=== PATIENT | male | born 1955 | race Caucasian/White ===

== ENCOUNTER 2024-12-01 18:58 | Inpatient (IN) | payer MEDICARE, OTHER, SELFPAY ==
[2024-12-01] VITALS (23 sets, daily range): BP systolic 96–141; BP diastolic 56–73; BMI 25.3; BMI 26.5
[2024-12-01 16:40] LABS: Hematocrit 39.6 % (39.0-52.0); Hemoglobin 13.0 g/dL (13.0-18.0); Mean Corp Hgb Conc. 32.8 g/dL (33.0-37.0); Mean Corpuscular Volume 86.3 fL (80.0-94.0); Nucleated Red Blood Cells % 0 % (-); Platelet Count 196 10^3/uL (130-400); Red Cell Dist. Width 13.6 % (11.5-14.5)
[2024-12-01 17:04] LABS: Blood Urea Nitrogen 29 mg/dl (9-20); Calcium 7.9 mg/dl (8.4-10.2); Carbon Dioxide 23 mmol/L (22-30); Chloride 108 mmol/L (98-107); Glucose 96 mg/dl (70-99); Sodium 140 mmol/L (135-145); eGFR > 60.00
[2024-12-01 17:07] LABS: Troponin I 0.842 ng/ml
--- NOTE | 2024-12-01 17:44 | ED.GENMED ---
History of Present Illness
<Lizandro Olivares PA-C - Last Filed: 12/01/24 18:20>
General
Chief Complaint: Chest Pain
Source: patient and records
Time Seen by Provider: 12/01/24 17:25
History of Present Illness
History of Present Illness:
69-year-old male with past medical history of CVA, CAD, hypertension, hyperlipidemia, CKD status post renal transplant, aortic valve complications (scheduled to undergo TAVR at [facility] in the coming months) presenting to the ER
for evaluation of chest pain which started yesterday, resolved but then started again 4 hours ago which is what prompted him to come to the ER today. Pain is described to be a 4 out of 10, substernal to left side of his chest, nonradiating,
constant both sharp and dull at the same time, pain worsens with exertion. Patient notes associated fatigue and generalized weakness. Denies diaphoresis, nausea, vomiting, cough, pleurisy or hemoptysis, lower extremity edema. He reports that 3
months ago he had a cardiac catheterization as part of his workup for his TAVR and it was noted he had moderate CAD at that time. He states that that he developed a pseudoaneurysm from this and ultimately required admission at the [facility]
[place] for a few days, states he is not sure when his TAVR is supposed to take place. Patient did receive 324 mg of aspirin on the way to the hospital. He also reports that he takes Brilinta and he believes that he received this medication
at his [facility] earlier this morning.
Past History
<Lizandro Olivares PA-C - Last Filed: 12/01/24 18:20>
Past History
ED Past Medical History: CAD, CVA, GERD, HTN, Hypercholesterolemia, Renal failure, Valvular disease and Psychiatric
ED Past Surgical History: Cardiac, Tonsilectomy and Other
Social History
Tobacco: Non-smoker
Alcohol: None
Drug: None
Personal:
Living: with family
Review of Systems
<Lizandro Olivares PA-C - Last Filed: 12/01/24 18:20>
Review of Systems
All Other Systems: ROS reviewed and negative except as documented in HPI and ROS
Phy Exam
<Lizandro Olivares PA-C - Last Filed: 12/01/24 18:20>
Physical Exam
Physical Exam:
GENERAL: Alert , in no apparent distress
HEAD: Normocephalic atraumatic
EYE: Clear conjunctiva
NECK: Supple
ENT: o/p clr, mmm.
CARDIAC: Regular rate and rhythm, holosystolic murmur left sternal border.
LUNGS: Clear breath sounds bilaterally, no acute respiratory distress, no wheezes/rales/rhonchi
ABDOMEN: Soft, without focal tenderness, no r/g, no cvat
NEUROLOGICAL: Alert and oriented, no focal neuro deficits
SKIN: Warm and dry, skin intact.
MUSCULOSKELETAL: No edema, well perfused.
PSYCH: Normal and appropriate interaction.
Scores
<Lizandro Olivares PA-C - Last Filed: 12/01/24 18:20>
Heart Failure Risk
Heart Failure Risk Score: Not Applicable
Heart Score for Chest Pain Patients
STEMI patient?: No
History: Moderately Suspicious
ECG: Nonspecific Repolarization
Age: >/= 65 years
Risk Factors: >/= 3 Risk Factors or History of CAD
Troponin: >/= 3 x Normal Limit
Heart Score for Chest Pain Patients: 8
Heart Score Risk: 72.7 % MACE over next 6 weeks
Withdrawal Assessment of Alcohol
Withdrawal Assessment Completed?: Not applicable
Course
<Lizandro Olivares PA-C - Last Filed: 12/01/24 18:20>
Orders/Labs/Results
Orders:
Orders
12/01/24 16:18
Electrocardiogram (*1) Urgent
Reason for Study: Chest Pain
EKG- Treatment ONCE
12/01/24 16:30
Basic Metabolic Panel Urgent
Complete Blood Count/With Diff Urgent
Troponin I Urgent
12/01/24 17:32
Nitroglycerin Sublingual [Nitrostat (Sublingual)] 0.4 mg .ROUTE .STK-MED ONE
12/01/24 17:34
Nitroglycerin Sublingual [Nitrostat (Sublingual)] 0.4 mg SL [id number] PRN
12/01/24 17:35
CR Chest Portable - 1 View Urgent
Comment:
Reason For Exam: chest pain
Reason Study Needs to be Portable: Patient Unstable
12/01/24 17:38
PTT Urgent
Prothrombin Time Urgent
12/01/24 17:43
Heparin 4,000 units IV NOW STA
Nursing to Place Non Medication Order As Directed
Physician Order: PTT 6 hours after initial start of Heparin infusion
12/01/24 17:45
Heparin [id number] Units/250 ml 25,000 units in 250 ml IV PER PROTOCOL
Weight to be used for heparin protocol in kilograms (kg):: 80.1
Protocol:: Cardiac Tx/Acute Coronary
PTT Goal Range to be used:: PTT 73 to 111 seconds
Order type:: Initial
INITIAL Infusion Dose (UNITS/KG/hr) & then follow protocol:: 12 units/kg/hr
Infusion Dose in UNITS/hr & then follow protocol (UNITS/hr):: 950
INFUSION RATE in mL/hr & then follow protocol (mL/hr):: 9.5
PTT less than or equal to 64 seconds:: Increase rate by 200 units/hr (+ 2 mL/hr)
PTT 64.1 to 72.9 seconds:: Increase rate by 100 units/hr (+ 1 mL/hr)
PTT 73 to 111 seconds:: Target Range. No change in rate.
PTT 111.1 to 130.9 seconds:: Decrease rate by 100 units/hr (- 1 mL/hr)
PTT 131 to 199.9 seconds:: HOLD for 1 hr. Then decrease rate by 200 units/hr (- 2 mL/hr)
PTT greater than or equal to 200 seconds:: HOLD for 2 hrs & Notify Provider. Then decrease by 200 units/hr (-
2 mL/hr)
Lab follow-up:: Each change, PTT q6h until 2 consecutive are therapeutic. Then PTT
daily.
Abnormal Lab Results
12/01/24
16:30
RBC 4.59 L 10^6/uL
(4.70-6.10)
MCHC 32.8 L g/dL
(33.0-37.0)
Abs Immat Gran (auto) 0.1 H 10^3/uL
(0-0.05)
Absolute Monos (auto) 1.3 H 10^3/uL
(0.1-0.6)
Immature Gran % 0.6 H %
(0-0.5)
Monocytes % 15.2 H %
(1.7-9.3)
Chloride 108 H mmol/L
(98-107)
BUN 29 H mg/dl
(9-20)
Calcium 7.9 L mg/dl
(8.4-10.2)
Troponin I 0.842 H* ng/ml
12/01/24 16:30
12/01/24 16:30
Vital Signs
Initial and Last Documented VS:
Initial Vital Signs
Temp Pulse Resp BP Pulse Ox
98.3 F 73 18 117/64 97
12/01/24 16:06 12/01/24 16:06 12/01/24 16:06 12/01/24 16:06 12/01/24 16:06
Last Documented Vital Signs
Temp Pulse Resp BP Pulse Ox
98.3 F 79 22 123/69 100
12/01/24 16:06 12/01/24 17:30 12/01/24 17:30 12/01/24 18:00 12/01/24 17:44
<Santiago Marti, DO - Last Filed: 12/01/24 17:56>
Orders/Labs/Results
Orders:
Orders
12/01/24 16:18
Electrocardiogram (*1) Urgent
Reason for Study: Chest Pain
EKG- Treatment ONCE
12/01/24 16:30
Basic Metabolic Panel Urgent
Complete Blood Count/With Diff Urgent
Troponin I Urgent
12/01/24 17:32
Nitroglycerin Sublingual [Nitrostat (Sublingual)] 0.4 mg .ROUTE .STK-MED ONE
12/01/24 17:34
Nitroglycerin Sublingual [Nitrostat (Sublingual)] 0.4 mg SL [id number] PRN
12/01/24 17:35
CR Chest Portable - 1 View Urgent
Comment:
Reason For Exam: chest pain
Reason Study Needs to be Portable: Patient Unstable
12/01/24 17:38
PTT Urgent
Prothrombin Time Urgent
12/01/24 17:43
Heparin 4,000 units IV NOW STA
Nursing to Place Non Medication Order As Directed
Physician Order: PTT 6 hours after initial start of Heparin infusion
12/01/24 17:45
Heparin [id number] Units/250 ml 25,000 units in 250 ml IV PER PROTOCOL
Weight to be used for heparin protocol in kilograms (kg):: 80.1
Protocol:: Cardiac Tx/Acute Coronary
PTT Goal Range to be used:: PTT 73 to 111 seconds
Order type:: Initial
INITIAL Infusion Dose (UNITS/KG/hr) & then follow protocol:: 12 units/kg/hr
Infusion Dose in UNITS/hr & then follow protocol (UNITS/hr):: 950
INFUSION RATE in mL/hr & then follow protocol (mL/hr):: 9.5
PTT less than or equal to 64 seconds:: Increase rate by 200 units/hr (+ 2 mL/hr)
PTT 64.1 to 72.9 seconds:: Increase rate by 100 units/hr (+ 1 mL/hr)
PTT 73 to 111 seconds:: Target Range. No change in rate.
PTT 111.1 to 130.9 seconds:: Decrease rate by 100 units/hr (- 1 mL/hr)
PTT 131 to 199.9 seconds:: HOLD for 1 hr. Then decrease rate by 200 units/hr (- 2 mL/hr)
PTT greater than or equal to 200 seconds:: HOLD for 2 hrs & Notify Provider. Then decrease by 200 units/hr (-
2 mL/hr)
Lab follow-up:: Each change, PTT q6h until 2 consecutive are therapeutic. Then PTT
daily.
Abnormal Lab Results
12/01/24
16:30
RBC 4.59 L 10^6/uL
(4.70-6.10)
MCHC 32.8 L g/dL
(33.0-37.0)
Abs Immat Gran (auto) 0.1 H 10^3/uL
(0-0.05)
Absolute Monos (auto) 1.3 H 10^3/uL
(0.1-0.6)
Immature Gran % 0.6 H %
(0-0.5)
Monocytes % 15.2 H %
(1.7-9.3)
Chloride 108 H mmol/L
(98-107)
BUN 29 H mg/dl
(9-20)
Calcium 7.9 L mg/dl
(8.4-10.2)
Troponin I 0.842 H* ng/ml
12/01/24 16:30
12/01/24 16:30
Vital Signs
Initial and Last Documented VS:
Initial Vital Signs
Temp Pulse Resp BP Pulse Ox
98.3 F 73 18 117/64 97
12/01/24 16:06 12/01/24 16:06 12/01/24 16:06 12/01/24 16:06 12/01/24 16:06
Last Documented Vital Signs
Temp Pulse Resp BP Pulse Ox
98.3 F 79 22 123/69 100
12/01/24 16:06 12/01/24 17:30 12/01/24 17:30 12/01/24 18:00 12/01/24 17:44
<Lizandro Olivares PA-C - Last Filed: 12/01/24 18:20>
MDM/Problems Addressed
Differential Diagnosis Includes:
NSTEMI/ACS
PE
PTX
CHF
Worsening valvular dysfunction
CKD
MDM/Problems Addressed:
69-year-old male presented to the ER for evaluation of chest pain that started 4 hours ago, currently 4 out of 10. Labs have been initiated on arrival which showed a troponin of 0.842, EKG without any acute ischemic changes. Patient
hemodynamically stable. Will order nitroglycerin for pain. Anticipate needing heparin for NSTEMI. Will consult with cardiology with ultimate plan for admission to hospitalist team. Will attempt to retrieve records from [facility]
[place] for recent procedures.
Chronic conditions affecting care: CAD
Acute Exacerbation and/or Progression of Chronic Illness: CAD
<Lizandro Olivares PA-C - Last Filed: 12/01/24 18:20>
*Pulse Oximetry
SaO2: 100
Oxygen Mode of Delivery: Room air
Patient hypoxic: no
*EKG
Heart Rate: 75
Rate: normal
Ischemia: no ischemia
*Chip Drier Interpretation
Rate: normal
Heart Rate: 78
Rhythm: sinus
*Critical Care Note
Total Time (30-74mins, 75-104mins- exclusive of procedures): 40
comment:
Critical care statement: A total of 40 minutes of critical care time was provided for this patient. This includes management of unstable vital signs, evaluation of the patient at bedside, reviewing the patient's pertinent medical records, discussion
with consultants, review of old EKGs and review of pertinent medical records. This time with separate from time utilized to perform the aforementioned documented procedures
Data Reviewed
Review of Other/Old Records Reveals: Records and Operative Reports
Source: patient and records
<Lizandro Olivares PA-C - Last Filed: 12/01/24 18:20>
Comment
Comment:
Cardiac cath report from August 08 of this year shows diffuse calcific CAD with intermediate proximal stenosis of OM1. There is moderate to severe aortic valve stenosis. Patient has previous stenting of OM1
Echocardiogram done August 20 shows ejection fraction of 60 to 65%. There is moderate to severe valvular aortic stenosis which is new from previous echocardiogram
Patient Management
Discussion with other providers: Hospitalist and Personnel Representative
Escalation/DeEscalation of care consider admission/obs:
Case discussed with cardiology who agrees with plan for heparin, can give nitro drip if pain remains following the initial sublingual nitroglycerin. They will see the patient in consult. Hospitalist team was notified and accepts for continued
evaluation and treatment.
ED Attending Note
<Lizandro Olivares PA-C - Last Filed: 12/01/24 18:20>
-
Portions of this chart may have been created with voice recognition software.� Occasional wrong word or��sound alike� substitutions may have occurred due to the inherent limitations of voice recognition software.
<Santiago Marti DO - Last Filed: 12/01/24 17:56>
ED Attending Note
Patient seen and examined by attending physician: Yes
I performed the substantive portion of visit, reviewed & personally made and approve the management plan that is documented in note by myself or CYNTHIA.: Yes
ED Attending Note:
Seen with PA examined independently 69-year-old male followed at [facility] by Dr. Rojas for TAVR underwent a cath a few months ago, had an injury to his right femoral artery, did have a stent placed sounds like in his coronary, presents with chest pain,
elevated troponin EKG noted chest pain-free now plan will be admission, cardiology consultation
Discharge Plan
Departure
Patient Disposition: Admit
Date of Disposition: 12/01/24
Time of Disposition: 17:44
Presentation/result/management discussed w/ accepting MD/DO: Hospitalist
Discharge Problem:
Acute non-ST elevation myocardial infarction (NSTEMI)
Prescriptions:
No Action
acetaminophen [Tylenol] 325 mg Tablet
650 mg PO Q4HPRN PRN (Reason: MILD PAIN)
lamotrigine 200 mg Tablet
400 mg PO HS
atorvastatin [Lipitor] 10 mg Tablet
10 mg PO HS
clonazepam [Klonopin] 0.5 mg Tablet
0.5 mg PO HS
melatonin 3 mg Tablet
3 mg PO HS
aspirin 81 mg Tablet,Delayed Release (Dr/Ec)
81 mg PO DAILY
famotidine [Pepcid] 20 mg Tablet
20 mg PO DAILY
fludrocortisone 0.1 mg Tablet
0.1 mg PO DAILY
tacrolimus [Prograf] 0.5 mg Capsule
1.5 mg PO Q12H
mycophenolate sodium [Myfortic] 180 mg Tablet,Delayed Release (Dr/Ec)
540 mg PO BID
cinacalcet 90 mg Tablet
90 mg PO BID
pregabalin [Lyrica] 50 mg Capsule
50 mg PO QPM
cholecalciferol (vitamin D3) [Vitamin D3] 50 mcg (2,000 unit) Tablet
50 mcg PO DAILY
ticagrelor [Brilinta] 90 mg Tablet
90 mg PO BID
lurasidone [Latuda] 60 mg Tablet
60 mg PO DAILY
magnesium oxide 400 mg magnesium Tablet
400 mg PO BID
Referrals:
Francisco Kearns MD [Family Provider, Internal Medicine]
Interventions
Interventions:
*Risk Screen - Suicide Last Done: 12/01/24 16:06
*General Assessment Last Done: 12/01/24 17:31
*Neglect/Abuse Screening Last Done: 12/01/24 16:06
*ED- Fall Risk Assessment Last Done: 12/01/24 17:31
*ED COVID-19 Vaccine History Last Done: 12/01/24 17:31
ED- Cardiac Assessment Last Done: 12/01/24 17:28
Discharge Date and Time
Print Language: AZERI
--- NOTE | 2024-12-01 17:46 | HPS.HSE ---
Addendum entered and electronically signed by Candy [facility] MD 12/01/24 20:30:
This is an addendum to H&P written by Mildred Luna on 12/01/2024. �Patient seen and examined independent with PA.
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
peripheral neuropathy, presenting with chest discomfort that occurred last week and today. �Described as pressure sharp stabbing with breathing.
Vital signs show unremarkable.
EKG shows nonspecific ST changes. �Troponin 0.84.
Patient with NSTEMI. �Trend troponins. �Check echocardiogram. �Check A1c and lipid panel. �As needed nitroglycerin. �Continue aspirin and Brilinta. �Heparin drip started. �N.p.o. postmidnight for potential catheterization tomorrow as per cardiology.
Original Note:
Family Physician
-
Family Physician: Francisco Kaerns
Chief Complaint
-
Chest Pain
History of Present Illness
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
chest pain. Patient reports he had a little bit of chest pain last week but states it was mild and resolved. Today the chest pain returned and was more much intense than last week. He describes a pressure in the middle of the chest, but then
describes a sharp pain along the right ribs when takes a deep breath. He denies shortness of breath.
Medical History
Past Medical History
Past Medical History: Reports Other
Additional Past Medical History:
Coronary Artery Disease s/p Stent x 2
Moderate / Severe Aortic Stenosis
Essential Hypertension
Hyperlipidemia
Renal Transplant
Hyperparathyroidism
Anxiety / Bipolar Disorder
Essential Tremor
Peripheral Neuropathy
Past Surgical History: Reports Other
Additional Past Surgical History:
Kidney Transplant
Cardiac Stent
Social History
Tobacco: Non-smoker
Alcohol: None
Living: Care Home
Family History
Family History: Not pertinent
Allergies / Home Medications
Allergies reflects when Allergies were last updated in [facility].
Home Medications with original date entered in [facility]
Allergy/Medication List:
Allergies
Allergy/AdvReac Type Severity Reaction Status Date / Time
No Known Allergies Allergy Unverified 12/01/24 17:45
Home Medications
acetaminophen 325 mg tablet (Tylenol) 650 mg PO Q4HPRN PRN MILD PAIN 12/01/24
aspirin 81 mg tablet,delayed release 81 mg PO DAILY 12/01/24
atorvastatin 10 mg tablet (Lipitor) 10 mg PO HS 12/01/24
cholecalciferol (vitamin D3) 50 mcg (2,000 unit) tablet (Vitamin D3) 50 mcg PO DAILY 12/01/24
cinacalcet 90 mg tablet 90 mg PO BID 12/01/24
clonazepam 0.5 mg tablet (Klonopin) 0.5 mg PO HS 12/01/24
famotidine 20 mg tablet (Pepcid) 20 mg PO DAILY 12/01/24
fludrocortisone 0.1 mg tablet 0.1 mg PO DAILY 12/01/24
lamotrigine 200 mg tablet 400 mg PO HS 12/01/24
lurasidone 60 mg tablet (Latuda) 60 mg PO DAILY 12/01/24
magnesium oxide 400 mg PO BID 12/01/24
melatonin 3 mg tablet 3 mg PO HS 12/01/24
mycophenolate sodium 180 mg tablet,delayed release (Myfortic) 540 mg PO BID 12/01/24
pregabalin 50 mg capsule (Lyrica) 50 mg PO QPM 12/01/24
tacrolimus 0.5 mg capsule, immediate-release (Prograf) 1.5 mg PO Q12H 12/01/24
ticagrelor 90 mg tablet (Brilinta) 90 mg PO BID 12/01/24
Review of Systems
-
A 12 point ROS was completed and negative except as noted: Yes
Constitutional: Denies Fever
Respiratory: Denies Cough or Trouble Breathing
Cardiac: Reports See HPI
Physical Exam
Vital Signs
Vital Signs
Temp Pulse Resp BP Pulse Ox
98.3 F 79 22 141/73 100
12/01/24 16:06 12/01/24 17:30 12/01/24 17:30 12/01/24 17:29 12/01/24 17:44
Physical Exam
General: Comfortable and Conversant
HEENT: Anicteric and Moist mucous membranes
Respiratory: Clear and Non Labored Respirations
Cardiac: S1/S2 and Regular Rhythm
GI: Soft and Non Tender
Rectal: Deferred by Provider
Musculoskeletal: No Clubbing, No Cyanosis and No Edema
Skin: Warm and Dry
Neuro: Awake, Alert, Oriented, Nonfocal/grossly intact and Tremors
Psych: Calm
Laboratory Results
-
12/01/24 16:30
12/01/24 16:30
Laboratory Results
Total Bilirubin Cancelled 12/01/24 16:30
AST Cancelled 12/01/24 16:30
ALT Cancelled 12/01/24 16:30
Alkaline Phosphatase Cancelled 12/01/24 16:30
Troponin I 0.842 ng/ml H* 12/01/24 16:30
Data Reviewed
-
Medical Tests (Nuc Med, Echo, EKG etc): Report Reviewed by me (ECG)
Lab Data: Labs Reviewed by me
Impression/Plan
-
NSTEMI
-Patient with known coronary artery disease with most recent stent in August 2024
-Consult Cardiology
-Continue heparin drip
-Continue aspirin and Brilinta
-Continue nitro SL PRN
-Trend troponin
-NPO after midnight for possible cardiac cath in AM
Moderate / Severe Aortic Stenosis
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
-Check Echo
Hyperlipidemia
-Check Fasting Lipid Panel
-Continue atorvastatin
Renal Transplant
-Continue fludrocortisone, mycophenolate and tacrolimus
Hyperparathyroidism
-Continue cinacalcet
Anxiety / Bipolar Disorder
-Continue clonazepam, lurasidone, and lamotrigine
Peripheral Neuropathy
-Continue pregabalin
DVT proph: Heparin drip
Code Status: Full Code
[2024-12-01] MEDS: NITROSTAT (SUBLINGUAL) 0.4 MG SL ×4 (17:55→22:40)
[2024-12-01 18:02] LABS: INR 1.12; PT 14.7 Sec (11.4-14.6)
[2024-12-01 18:03] LABS: APTT 32.6 Sec (23.4-35.0)
[2024-12-01] MEDS: HEPARIN 25000 UNITS/250 ML IV (18:14)
[2024-12-01] MEDS: HEPARIN 4000 UNITS IV (18:15)
[2024-12-01 19:12] LABS: ALT (SGPT) 19 U/L (0-50); AST (SGOT) 24 U/L (17-59); Albumin 3.9 g/dl (3.5-5.0); Alkaline Phosphatase 112 U/L (38-126); Potassium 4.3 mmol/L (3.5-5.1); Total Protein 5.8 g/dl (6.3-8.2)
[2024-12-01] MEDS: KLONOPIN 0.5 MG PO (21:49)
[2024-12-01] MEDS: TYLENOL 650 MG PO (21:49)
[2024-12-01] MEDS: LIPITOR 10 MG PO (21:49)
[2024-12-01] MEDS: MELATONIN 3 MG PO (21:50)
[2024-12-01] MEDS: BRILINTA 90 MG PO (21:50)
[2024-12-01] MEDS: MAGNESIUM OXIDE 400 MG PO (21:50)
[2024-12-01] MEDS: NITROLINGUAL SPRAY 1 BOTTLE SL (22:05)
[2024-12-01] MEDS: LAMICTAL 400 MG PO (22:07)
[2024-12-01] MEDS: MYFORTIC DELAYED REL. 540 MG PO (22:08)
[2024-12-01] MEDS: SENSIPAR 90 MG PO (22:09)
[2024-12-01] MEDS: PROGRAF 1.5 MG PO (22:09)
[2024-12-02] VITALS (23 sets, daily range): BP systolic 89–129; BP diastolic 45–85; BMI 26.3
[2024-12-02 00:25] LABS: APTT 100.3 Sec (23.4-35.0)
[2024-12-02 00:53] LABS: Troponin I 0.791 ng/ml
--- NOTE | 2024-12-02 01:46 | PTCARENOTE ---
Pt admitted to room 2248 with chest pain. Pt c/o CP 4/10 SL Nitro x2 given with pain down to 04/18. Pt requested lunch box while complaining 'severe' CP 4/10 and wanted to take nitro only after he eats. Heparin gtt per order. Pt oriented to room,
call correia w/in reach. pt was able to ambulate with minimal assistance.
[2024-12-02 05:43] LABS: Hematocrit 35.1 % (39.0-52.0); Hemoglobin 11.6 g/dL (13.0-18.0); Mean Corp Hgb Conc. 33.0 g/dL (33.0-37.0); Mean Corpuscular Volume 86.0 fL (80.0-94.0); Platelet Count 165 10^3/uL (130-400); Red Cell Dist. Width 13.6 % (11.5-14.5)
[2024-12-02 05:56] LABS: ALT (SGPT) 19 U/L (0-50); AST (SGOT) 24 U/L (17-59); Albumin 3.9 g/dl (3.5-5.0); Alkaline Phosphatase 102 U/L (38-126); Blood Urea Nitrogen 31 mg/dl (9-20); Calcium 8.3 mg/dl (8.4-10.2); Carbon Dioxide 22 mmol/L (22-30); Chloride 112 mmol/L (98-107); Estimated Creatinine Clearance 59 ml/min; Glucose 97 mg/dl (70-99); HDL Cholesterol 43 mg/dl; LDL Cholesterol, Calculated 56 mg/dl; Magnesium 1.5 mg/dl (1.6-2.3); Potassium 4.3 mmol/L (3.5-5.1); Sodium 141 mmol/L (135-145); Total Protein 5.8 g/dl (6.3-8.2); Very Low Density Lipoprotein 11 mg/dl (0-30); eGFR > 60.00
[2024-12-02 06:18] LABS: Troponin I 0.703 ng/ml
[2024-12-02 06:24] LABS: APTT 92.7 Sec (23.4-35.0)
[2024-12-02] MEDS: MAGNESIUM SULFATE 102 GRAMS IV (06:25)
--- NOTE | 2024-12-02 07:38 | CON.CAR ---
Addendum entered and electronically signed by Selvin King MD 12/02/24 10:05:
I saw and examined the patient.
The Food Processing Chemist's note was reviewed and I agree with the note.
Comment:
GEN: No distress, awake, Ox3
HEENT: supple, anicteric, mmm
LUNGS: CTA, no wheezes/rales
CV: Reg, S1/S2, 3/6 syst LSB, no gallop
ABD: soft, BS+, NT/ND
EXT: No edema
NEURO: Gross non-focal
SKIN: No rash
PLan:
69-year-old male with past medical history of coronary artery disease, severe aortic stenosis, hypertension, bipolar disorder, and renal transplant presents with chest tightness and chest pressure for several days. He has been having a few days of
chest pains when yesterday he had severe chest pain in the center of his chest. It did not radiate but he did feel some shortness of breath. He has noticed some intermittent episodes of weakness. He is being evaluated for transcatheter aortic
valve replacement. He had a PCI to his OM in August 2024. After his PCI he overall felt well. He denies any orthopnea, PND, or edema. He has no bleeding. He states his kidney transplant has been stable. He did have 10 years of hemodialysis prior
to his transplant
Continue IV heparin. If has further chest pains we will start nitroglycerin. Continue aspirin and Brilinta. Continue atorvastatin and check lipids.
Will check echocardiogram. Will review records from prior cardiology at [place]. Previous mean aortic gradient from 1 year ago was 39. He has appt with [facility] Dr Rojas in for TAVR eval.
His blood pressure is stable but has been on the low side. Continue Florinef for now. Will hold off on beta-blockers for now. If stable s/p Cath will add low dose Metoprolol.
With non-STEMI will proceed with cardiac cath today. Creat 1.2.
Cont Tacrolinus/Mycophenolate. Consult nephrology
Original Note:
Consultation
Consultation Request
Date/Time Consultation Requested: 12/01/2024 at 2108
Date/Time Consultation Performed: 12/02/2024 at 0816
Requesting Provider: Dr. Polanco
Performing Provider: Dr. NORMA Delacruz
Reason for Consultation: Chest pain elevated troponin
Medical History
-
History of Present Illness:
Patient came to the ER yesterday with chest pain and was admitted with elevated troponin, cardiology is now consulted. Patient used to follow with [facility] cardiology and had a cath 08/08/24 resulting in OM1 stent, but there was residual nonobstructive
RCA and LAD disease. Patient then had a pseudoaneurysm with 5-day hospitalization. Patient decided to transition his cardiology care to Dr. Rojas at [place] and is following with their office for TAVR evaluation, but is not currently scheduled for
TAVR. Patient lives in the long-term care section at [facility], but reports he has his own room although they handle all of his medications and meals. Patient has lived there for 3 years and says this is his long-term living
situation. Patient reports 2 hours of chest pain starting at 10 AM yesterday that persisted until he came to the ER and had 3 different NTG SL treatments. He has been pain-free since then. Patient started on heparin gtt after his initial troponin
returned elevated at 0.8, troponin trending down thereafter. Patient is a difficult historian and did not tell me that he called his immigration services officer at [facility] yesterday and is scheduled to see them next . He also mentioned in passing that he
had an episode of weakness and shortness of breath 2 days ago because 'these are my to have our symptoms you only need to know about my heart attack symptoms.'
PMH:
CAD
Remote PCI details and exact date unknown 2009
s/p PCI of OM-1 at [facility] 08/08/24
Severe being evaluated for TAVR are at [facility]
Patient is not currently scheduled for TAVR
s/p kidney transplant
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
Bipolar disorder
Past Medical History
Past Medical History: Other (In HPI)
Past Surgical History: Cardiac (PCI as recently as 08/08/2024 at [facility]), Tonsilectomy and Other (Kidney transplant)
Social History
Tobacco: Non-Smoker
Alcohol: None
Drug: None
Personal: Single
Living: Halfway (Patient is a long-term resident in the long-term care section at [facility], he reports he has his own room but they handle all meds and meals)
Family History
Family History: Reviewed & Not Pertinent
Allergies / Home Medications
Allergy/AdvReac Type Severity Reaction Status Date / Time
No Known Allergies Allergy Unverified 12/01/24 17:45
�Medication �Instructions �Recorded �Confirmed �Type
acetaminophen 325 mg tablet 650 mg PO Q4HPRN PRN MILD PAIN 12/01/24 12/01/24 History
(Tylenol)
aspirin 81 mg tablet,delayed 81 mg PO DAILY 12/01/24 12/01/24 History
release
atorvastatin 10 mg tablet (Lipitor) 10 mg PO HS 12/01/24 12/01/24 History
cholecalciferol (vitamin D3) 50 50 mcg PO DAILY 12/01/24 12/01/24 History
mcg (2,000 unit) tablet (Vitamin
D3)
cinacalcet 90 mg tablet 90 mg PO BID 12/01/24 12/01/24 History
clonazepam 0.5 mg tablet (Klonopin) 0.5 mg PO HS 12/01/24 12/01/24 History
famotidine 20 mg tablet (Pepcid) 20 mg PO DAILY 12/01/24 12/01/24 History
fludrocortisone 0.1 mg tablet 0.1 mg PO DAILY 12/01/24 12/01/24 History
lamotrigine 200 mg tablet 400 mg PO HS 12/01/24 12/01/24 History
lurasidone 60 mg tablet (Latuda) 60 mg PO DAILY 12/01/24 12/01/24 History
magnesium oxide 400 mg PO BID 12/01/24 12/01/24 History
melatonin 3 mg tablet 3 mg PO HS 12/01/24 12/01/24 History
mycophenolate sodium 180 mg 540 mg PO BID 12/01/24 12/01/24 History
tablet,delayed release (Myfortic)
pregabalin 50 mg capsule (Lyrica) 50 mg PO QPM 12/01/24 12/01/24 History
tacrolimus 0.5 mg capsule, 1.5 mg PO Q12H 12/01/24 12/01/24 History
immediate-release (Prograf)
ticagrelor 90 mg tablet (Brilinta) 90 mg PO BID 12/01/24 12/01/24 History
Review of Systems
-
History Source: Patient
All other systems: Negative unless noted
Physical Exam
Vital Signs
Temp Pulse Resp BP Pulse Ox
97.8 F 68 16 121/63 99
12/02/24 07:05 12/02/24 07:05 12/02/24 07:05 12/02/24 05:10 12/02/24 07:05
GEN: NAD, AAO x 3
HEENT: EOMI, MMM
LUNGS: RA CTA B/L, no wheeze
CV: SR on telemetry. Reg, S1/S2, 2/6 syst LSB
ABD: soft, BS+, NT, ND
EXT: No edema B/L LE
NEURO: Tremulous. No focal or lateralizing weakness
SKIN: No rash
Lab Results
12/02/24 05:22
12/02/24 05:22
Troponin I 0.703 ng/ml H* 12/02/24 05:22
Impression / Plan
-
PCP: Dr. Francisco Kearns
Cardiology: Previously followed with Dr. Bill Petit at [facility] [phone], now follows with Dr. Salvador Rojas at [facility] [phone]
Impression:
Admitted with chest pain and elevated troponin 12/01/2024
Elevated troponin
CAD
Remote PCI details and exact date unknown 2009
s/p PCI of OM-1 at [facility] 08/08/24
Severe being evaluated for TAVR are at [facility]
Patient is not currently scheduled for TAVR
s/p kidney transplant
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
Bipolar disorder
Echo 07/10/2023: [facility] study, EF 60 to 65%, normal RV size and function, no MR/MS, moderate to severe with peak/mean 67/39 mmHg and DESHAWN 0.8 cm sq
C 08/08/2024: [facility] study, diffuse calcific CAD with FFR positive stenosis in the proximal OM, s/p TUNG to OM-1, severely calcified up to 60% stenosis in the RCA luminal irregularities in the LM, calcified proximal and distal up to 40% plaque in the LAD
Plan:
-Patient came to the ER yesterday with chest pain and was admitted with elevated troponin, cardiology is now consulted. Patient used to follow with [facility] cardiology and had a cath 08/08/24 resulting in OM1 stent, but there was residual nonobstructive
RCA and LAD disease. Patient then had a pseudoaneurysm with 5-day hospitalization. Patient decided to transition his cardiology care to Dr. Rojas at [facility] and is following with their office for TAVR evaluation, but is not currently scheduled for
TAVR. Patient lives in the long-term care section at [facility], but reports he has his own room although they handle all of his medications and meals. Patient has lived there for 3 years and says this is his long-term living
situation. Patient reports 2 hours of chest pain starting at 10 AM yesterday that persisted until he came to the ER and had 3 different NTG SL treatments. He has been pain-free since then. Patient started on heparin gtt after his initial troponin
returned elevated at 0.8, troponin trending down thereafter. Patient is a difficult historian and did not tell me that he called his immigration services officer at [facility] yesterday and is scheduled to see them next Thursday. He also mentioned in passing that he
had an episode of weakness and shortness of breath 2 days ago because 'these are my to have our symptoms you only need to know about my heart attack symptoms.'
-ECG reviewed by me is SR without acute ST change
-Initial troponin 0.8 and trending down thereafter
-I called and got records from [facility] cardiology and await their arrival. I am looking for his last cardiac cath report to get all the details
-I called Dr. Rojas at [facility] and talked to someone at his office and they did send me records which are summarized and outlined above. Patient is not currently scheduled for TAVR, but is scheduled to be seen in their office next , 12/11/2024.
-I was able to get some details of his cardiac cath from 08/08/24, he had a residual 60% RCA lesion and up to 40% lesion in the LAD. Patient now with chest pain and elevated troponin and so we discussed possibly repeating cardiac cath to reevaluate
coronary anatomy and he is agreeable to this. We talked about the risks versus the benefits especially in regards to his previous kidney transplant and he is agreeable to proceed.
-Patient was seen earlier this morning prior to the completion of this note and then while working on this no I was called back to see patient for recurrent chest pain that did not respond to NTG SL x 1. I am starting NTG gtt in addition to heparin
gtt. Urgent ECG reviewed by me is stable without acute ST changes. I have ordered another troponin. I reached out to interventional cardiology to expedite cardiac cath. I also reached out to echo to expedite echo. Back into see patient as well.
31 minutes critical care time in addition to this consult
-Kidney transplant was due to ESRD from lithium toxicity. Cre is 1.2 today, patient is not sure of his baseline. Will consult nephrology as patient is agreeable to cardiac cath.
[2024-12-02 08:41] LABS: Glycohemoglobin (HgbA1c) 5.3 % (4.0-5.6)
[2024-12-02] MEDS: ASPIR LOW (ENTERIC COATED) 81 MG PO (08:45)
[2024-12-02] MEDS: BRILINTA 90 MG PO ×2 (08:45→19:54)
[2024-12-02] MEDS: FLORINEF 0.1 MG PO (08:46)
[2024-12-02] MEDS: LATUDA 60 MG PO (08:46)
[2024-12-02] MEDS: MAGNESIUM OXIDE 400 MG PO ×2 (08:47→19:54)
[2024-12-02] MEDS: MYFORTIC DELAYED REL. 540 MG PO ×2 (08:47→19:54)
[2024-12-02] MEDS: SENSIPAR 90 MG PO ×2 (08:48→19:54)
[2024-12-02] MEDS: PEPCID 20 MG PO (08:48)
[2024-12-02] MEDS: VITAMIN D3 (cholecalciferol) 50 MCG PO (08:49)
[2024-12-02] MEDS: NITROSTAT (SUBLINGUAL) 0.4 MG SL (09:22)
--- NOTE | 2024-12-02 09:23 | W.PN.HOSP.TC ---
Today's Communication/Plan
-
For cardiac catheterization today
Assessment / Plan
Assessment / Plan
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
peripheral neuropathy, presenting with chest discomfort that occurred last week and today. �Described as pressure sharp stabbing with breathing. EKG shows nonspecific ST changes. �Troponin 0.84.
Patient with NSTEMI. �Trend troponins. �Check echocardiogram. �Check A1c and lipid panel. �As needed nitroglycerin. �Continue aspirin and Brilinta. �Heparin drip started. �N.p.o. postmidnight for potential catheterization tomorrow as per cardiology.
Assessment/plan:
NSTEMI
-Appreciate cardiology input, plan for cardiac catheterization today
-Continue heparin drip, aspirin, Brilinta, nitro SL PRN
Renal Transplant
-Continue fludrocortisone, mycophenolate and tacrolimus
-Nephrology consulted as patient will receive contrast for his cardiac catheterization
Moderate / Severe Aortic Stenosis
-Patient reports his Evp General Counsel as Luis Angel is watching his valve with plans to undergo TAVR evaluation in the future
-Echocardiogram requested
Hyperlipidemia
-LDL at goal at 56
-Continue atorvastatin
Hyperparathyroidism
-Continue cinacalcet
Anxiety / Bipolar Disorder
-Continue clonazepam, lurasidone, and lamotrigine
Peripheral Neuropathy
-Continue pregabalin
Lactose intolerance
-He will need a low lactose diet after his cardiac catheterization
DVT proph: Heparin drip
Code Status: Full Code
Total time spent to see the patient on the floor, examine the patient, review data and lab results, discuss treatment plan with patient, nursing staff around 45 minutes.
Physical Exam
General: No acute distress
HEENT: Normocephalic, Atraumatic, EOMI, MMM
Respiratory: Clear to Auscultation bilaterally
Cardiac: Normal S1/S2, Regular Rate and Rhythm
GI: Soft, Nontender, Nondistended, Normal Bowel Sounds
Extremities: No Clubbing, Cyanosis, or Edema
Neuro: Hand tremor noted
Psych: Calm, Cooperative
Anticipated Discharge: 24 - 48 hours
Subjective/Interval History
-
Date of Service: December 02, 2024
Patient continues to have intermittent chest pressure, currently 1 out of 10 in intensity. Denies shortness of breath, no palpitations. No fever, no vomiting.
Objective Data
-
Labs:
Laboratory Results
12/02/24 12/02/24
00:03 05:22
WBC 7.3
Hgb 11.6 L
Hct 35.1 L
Plt Count 165
APTT 100.3 H 92.7 H
Sodium 141
Potassium 4.3
Chloride 112 H
Carbon Dioxide 22
BUN 31 H
Creatinine 1.2
Glucose 97
Calcium 8.3 L
Total Bilirubin 0.6
AST 24
ALT 19
Alkaline Phosphatase 102
Vital Signs:
Vital Signs
Temp Pulse Resp BP Pulse Ox
97.8 F 67 16 129/65 99
12/02/24 07:05 12/02/24 08:00 12/02/24 07:05 12/02/24 09:22 12/02/24 07:05
I&O
12/01/24 12/02/24 12/03/24
06:59 06:59 06:59
Intake Total 200 / 200
Output Total 600 / 600 320 / 320
Balance -400 / -400 -320 / -320
[2024-12-02] MEDS: NITROGLYCERIN PREMIX 250 IV (09:41)
--- NOTE | 2024-12-02 09:51 | PTCARENOTE ---
Patient notified nursing of 4-08/16 left sided dull/sharp pain unrelieved by NTG SL x 1. EKG done, stated pain was also in his left upper arm. Mariam Roman PA in to see the patient and nitro gtt started. 104/60-SR 67, on 2L NC. Patient informed to remain
NPO for cardiac cath today, troponin sent to the lab.
--- NOTE | 2024-12-02 09:53 | W.PN.UPDATE ---
Update Note
Progress Note Update
Patient was seen earlier this morning prior to the completion of this note and then while working on this no I was called back to see patient for recurrent chest pain that did not respond to NTG SL x 1. I am starting NTG gtt in addition to heparin
gtt. Urgent ECG reviewed by me is stable without acute ST changes. I have ordered another troponin. I reached out to interventional cardiology to expedite cardiac cath. I also reached out to echo to expedite echo. Back into see patient as well.
Update: Back into see patient and he continues to be agreeable to cardiac cath. He is getting echo, preliminarily EF looks preserved. Chest pain that was a 5 out of 10 is now a 1 out of 10.
Update: TT communication with nephrology and interventional cardiology. We are planning on cardiac cath and nephrology was able to order bicarbonate fluids. TT communication with pharmacist to push through fluids stat
Update: TT communication with patient's nurse fluids being expedited by pharmacy and report given to Associate Professor Of Mathematics and patient taken to the lab
31 minutes critical care time in addition to this consult
[2024-12-02] MEDS: PROGRAF 1.5 MG PO (09:56)
[2024-12-02 10:29] LABS: Troponin I 0.633 ng/ml
[2024-12-02] MEDS: SODIUM BICARBONATE 1150 MEQ IV (11:44)
--- NOTE | 2024-12-02 12:11 | PTCARENOTE ---
IV bicarb gtt infusing, patient taken to the labor relations officer.
--- NOTE | 2024-12-02 12:40 | W.CON.NEPH ---
Consultation
-
Date/Time Consultation Requested: 12/02/2024 10 AM
Date/Time Consultation Performed: 12/02/2024 11 AM
Requesting Provider: Dr. King
Performing Provider: Dr. Elder
Reason for Consultation: Transplant
Medical History
-
Chief Complaint: Renal transplant
History of Present Illness:
This is a 69-year-old gentleman who resides at [facility] long-term. He has known coronary artery disease with history of stenting, on antiplatelet therapy. He also has moderate to severe aortic stenosis followed by
[facility] for TAVR evaluation. He also has bipolar disorder currently treated with a multidrug regimen. He had previously been on lithium but this had caused renal failure and he was on dialysis in center hemodialysis via right
upper extremity AV fistula for 10 years time. He ultimately received a living unrelated kidney from a friend of his sister who was in a persistent comatose state. He says that it was a perfect match. Posttransplant he was started on Florinef for
reasons he is not sure of but this dose was increased to twice daily a few years ago and he has been stable on it since. He remains on a dual drug regimen for his renal transplant with baseline creatinine approximately 1.2. He follows with
Ozzie Hassan at [place] for his transplant. He came to the emergency room because he had substernal chest pain which has worsened over the last week.
Troponin was elevated.
Past Medical History
Coronary Artery Disease s/p Stent x 2
Moderate / Severe Aortic Stenosis
Essential Hypertension
Hyperlipidemia
Hyperparathyroidism
Anxiety / Bipolar Disorder
Essential Tremor
Peripheral Neuropathy
Living unrelated kidney Transplant, [place] [id number], right lower quadrant
Prior ESRD from lithium toxicity
Social History
Tobacco: Non-Smoker
Alcohol: None
Family History
Family History: Not Pertinent
Allergies / Home Medications
Allergy/AdvReac Type Severity Reaction Status Date / Time
No Known Allergies Allergy Unverified 12/01/24 17:45
�Medication �Instructions �Recorded �Confirmed �Type
acetaminophen 325 mg tablet 650 mg PO Q4HPRN PRN MILD PAIN 12/01/24 12/01/24 History
(Tylenol)
aspirin 81 mg tablet,delayed 81 mg PO DAILY Blood Clot 12/01/24 12/01/24 History
release Prevention/Tx
atorvastatin 10 mg tablet (Lipitor) 10 mg PO HS High Cholesterol 12/01/24 12/01/24 History
cholecalciferol (vitamin D3) 50 50 mcg PO DAILY Supplement 12/01/24 12/01/24 History
mcg (2,000 unit) tablet (Vitamin
D3)
cinacalcet 90 mg tablet 90 mg PO BID Kidney Disease 12/01/24 12/01/24 History
clonazepam 0.5 mg tablet (Klonopin) 0.5 mg PO HS Mental Health/Anxiety 12/01/24 12/01/24 History
famotidine 20 mg tablet (Pepcid) 20 mg PO DAILY Gastrointestinal 12/01/24 12/01/24 History
Issue
fludrocortisone 0.1 mg tablet 0.1 mg PO DAILY Anti-Inflammatory 12/01/24 12/01/24 History
lamotrigine 200 mg tablet 400 mg PO HS 12/01/24 12/01/24 History
lurasidone 60 mg tablet (Latuda) 60 mg PO DAILY 12/01/24 12/01/24 History
magnesium oxide 400 mg PO BID Supplement 12/01/24 12/01/24 History
melatonin 3 mg tablet 3 mg PO HS Sleep 12/01/24 12/01/24 History
mycophenolate sodium 180 mg 540 mg PO BID 12/01/24 12/01/24 History
tablet,delayed release (Myfortic)
pregabalin 50 mg capsule (Lyrica) 50 mg PO QPM Neurological Condition 12/01/24 12/01/24 History
tacrolimus 0.5 mg capsule, 1.5 mg PO Q12H Transplant 12/01/24 12/01/24 History
immediate-release (Prograf)
ticagrelor 90 mg tablet (Brilinta) 90 mg PO BID Blood Clot 12/01/24 12/01/24 History
Prevention/Tx
Review of Systems
-
Chest pain 1 out of 10, no radiation. No further shortness of breath or fatigue.
All other systems: Negative unless noted
Physical Exam
Vital Signs
Vital Signs
Temp Pulse Resp BP Pulse Ox
98.0 F 72 18 102/60 98
12/02/24 10:55 12/02/24 11:30 12/02/24 10:55 12/02/24 10:54 12/02/24 10:55
Lab Results
WBC 7.3 10^3/uL (4.8-10.8) 12/02/24 05:22
RBC 4.08 10^6/uL (4.70-6.10) L 12/02/24 05:22
Hgb 11.6 g/dL (13.0-18.0) L 12/02/24 05:22
Hct 35.1 % (39.0-52.0) L 12/02/24 05:22
Plt Count 165 10^3/uL (130-400) 12/02/24 05:22
Sodium 141 mmol/L (135-145) 12/02/24 05:22
Potassium 4.3 mmol/L (3.5-5.1) 12/02/24 05:22
Chloride 112 mmol/L (98-107) H 12/02/24 05:22
Carbon Dioxide 22 mmol/L (22-30) 12/02/24 05:22
BUN 31 mg/dl (9-20) H 12/02/24 05:22
Creatinine 1.2 mg/dL (0.7-1.3) 12/02/24 05:22
eGFR > 60.00 12/02/24 05:22
Glucose 97 mg/dl (70-99) 12/02/24 05:22
Calcium 8.3 mg/dl (8.4-10.2) L 12/02/24 05:22
Albumin 3.9 g/dl (3.5-5.0) 12/02/24 05:22
Physical Exam
Patient is awake alert oriented and in no distress. Mood and affect were pleasant, insight and judgment were good. Pupils are equal round and reactive to light, extraocular movements are intact, sclera were anicteric. Hearing was normal, ears and
nose are intact. Oropharynx was clear. Neck was supple with trachea midline and no thyromegaly. Heart was regular rate and rhythm without rubs. Lower extremities without edema. Lungs were clear to auscultation bilaterally and with normal
excursion. Abdomen was soft, nontender, with normal active bowel sounds, and no hepatosplenomegaly. Skin was without rash and with normal turgor. Right arm AV fistula with large pseudoaneurysm but positive thrill and bruit distally
Data Reviewed
-
Radiology: Image Personally Visualized and interpreted (Chest x-ray 12/01/2024 by my reading no acute disease)
Medical Tests (Nuc Med, Echo etc): Image Personally Visualized and interpreted (EKG 12/02/2024 by reading sinus rhythm first-degree AV block nonspecific T wave abnormality)
Labs: Labs Reviewed by me
Assessment/Plan
-
Assessment
NSTEMI
Living unrelated renal transplant right lower quadrant
Severe aortic stenosis
Bipolar disorder
hypertension
Plan
For cardiac catheterization
Will order bicarbonate prophylaxis protocol
Follow BMP
Check tacrolimus level tomorrow he says that his dose was changed about 3 weeks ago with an increase from 1 mg in the morning and 0.5 mg at night to 1 mg twice daily
[2024-12-02 13:17] LABS: ACT-LR - POC 385 Seconds (116-155)
[2024-12-02 13:56] LABS: ACT-LR - POC 347 Seconds (116-155)
--- NOTE | 2024-12-02 14:25 | ITS.CL.CATH ---
[facility] - Catheterization
Cardiac Catheterization
Procedure Report:
RIGHT AND LEFT HEART STUDY WITH CORONARY INTERVENTION
Date of Procedure: December 02, 2024
Referring: Dr. Salvador Rojas
PROCEDURES:
1. Right heart catheterization
2. Coronary angiography
3. Balloon angioplasty and intravascular of OM1 with [place] ultrasound catheter of OM1
4. SHOCKWAVE lithotripsy of in-stent restenosis within a large obtuse marginal branch
5. Successful stenting of the OM1 with a 3.5 x 15 mm Holland stent that was implanted at nominal pressures and postdilated with a 3.75 mm noncompliant balloon to high pressures
INDICATION: This is a 69-year-old gentleman with a prior history of of bipolar disorder, end-stage renal disease requiring renal transplant, coronary artery disease, and severe aortic stenosis for which she has been evaluated for possible
transcatheter aortic valve replacement by Dr. Salvador Rojas at the [facility]. He underwent stenting of a large obtuse marginal branch at [facility] by Dr. Bill Johnston in August 2024. He now presents to [facility] with complaints of substernal chest pressure reminiscent of his prior anginal symptoms. His initial troponin was 0.842 ng/mL and trended lower. He continues to experience low-grade chest tightness that improved with IV nitroglycerin and
is now referred for emergent coronary angiography in the setting of ongoing chest pain symptoms.
ACCESS: Left common femoral artery, 6 Afghan sheath. Transplanted kidney is in the right pelvis. He developed a pseudoaneurysm requiring thrombin injection after his last angiogram.
HEMODYNAMICS : mmHg
RA (m) : 12
RV (s/d) : 36/10, 16
PA (s/d, m) : 36/17, 25
PCWP (m) : 25
AO (s/d, m) : 119/63, 85
Cardiac Output: 7.1 L / min and Cardiac Index: 3.5 L/ min / m-2
CORONARY FINDINGS
Dominance: Left
LEFT MAIN: Normal with minor distal tapering
LEFT ANTERIOR DESCENDING: The LAD arises normally from the left main and runs in the anterior interventricular groove. The LAD has a 40-50% proximal stenosis and the remainder of the LAD has minor irregularities over its course
CIRCUMFLEX: The circumflex is a large-caliber dominant vessel with a 40% proximal stenosis. OM1 arises from the mid circumflex. The stent in OM1 has hazy 95% restenotic segment proximally as it arises from the circumflex. The mid circumflex just
beyond OM1 has a 50% stenosis and the vessel continues in the AV groove supplying a posterolateral branch and PDA
RIGHT CORONARY ARTERY: Small diffusely diseased nondominant vessel
VENTRICULOGRAPHY: Not done
ANGIOPLASTY PROCEDURE DETAIL: Upon review of the diagnostic angiogram the decision was made to proceed with percutaneous revascularization of the high-grade proximal restenosis within the large obtuse marginal branch. The vessel restenosed within 3
months of original stent placement. Intravenous heparin was administered and the ACT was monitored throughout the procedure. The origin of the left main was cannulated with a 6 Afghan EBU 3.75 guiding catheter and a short BMW guidewire was
advanced across the high-grade stenosis in OM1 and into the distal vessel. A long BMW guidewire was advanced as a marker wire into the distal dominant circumflex.
Balloon predilation was performed with a 2.0 x 12 mm Euphora balloon taking care to position the proximal portion of the balloon at the proximal OM1. Given the early failure of the OM1 stent the decision was made to proceed with intravascular
ultrasound of OM1 after predilation in order to define a potential mechanism of early stent failure. The mid to distal portion of the stent appeared well approximated to the vessel wall. The proximal portion of the stent appeared suboptimally
expanded with significant fibrotic tissue extending through the stent and into the vessel lumen. The decision was made to proceed with SHOCKWAVE lithotripsy given the early failure of the proximal stented segment and IVUS imaging suggestive of an
underexpanded stent with calcific plaque. A 3.5 mm SHOCKWAVE balloon was utilized to deliver a total of 110 of the 120 shockwave pulses available. This was followed by placement of a 3.5 x 15 mm Anthony stent that was postdilated with a 3.75 mm
noncompliant balloon to 14-16 anay.
RADIATION SUMMARY: Fluoro Time (min): 12.1, Dose (mGy): 1007, DAP (Gy.cm2) : 68.1
Vascular Closure: Perclose LFA
CONCLUSIONS
1. Early restenosis/stent failure of OM1 stent with intravascular ultrasound evidence of poor stent apposition and calcification of the OM1. Shockwave lithotripsy was performed followed by placement of a 3.5 x 15 mm Anthony stent that was implanted
at nominal pressures and postdilated to high pressures with a 3.75 mm noncompliant balloon
RECOMMENDATIONS
1. Continue dual antiplatelet therapy and secondary risk factor modification
2. Follow-up with Dr. Rojas as scheduled
Copy to: Dr. Salvador Rojas, MICHAEL Webster [address] [facility], [address] [place] [address]
[2024-12-02 14:44] LABS: ACT-LR - POC > 397 Seconds (116-155)
[2024-12-02] MEDS: SUBLIMAZE 25 MCG IV (15:27)
--- NOTE | 2024-12-02 15:44 | CM ---
spoke to pt in room, he lives [facility] living at [facility] . he would like to return there when dc'ed. plan is for a cath today, cm following
[2024-12-02] MEDS: NSS 500 IV (16:01)
--- NOTE | 2024-12-02 16:07 | W.PN.UPDATE ---
Update Note
Progress Note Update
CTSP re: left groin hematoma. Pt is post OM PCI with LFA and LFV access. LFA closed w/perclose, LFV manual compression. Large hematoma expanding lateral and distal, firm and painful to touch. SBP 110s. Fentanyl 25mg given and NSS 500cc bolus given.
RN held pressure for 25 minutes. After 5 minutes without pressure, area was soft but again developing lateral swelling. Pressure held for additional 25 minutes. Groin site now soft with some ecchymosis, tender but improved.
PLAN:
Stat CBC, Type and screen sent
Remain on flat bedrest for 1 hour.
HOB to 30deg after 1 hour.
Remain on bedrest until 8pm.
Low threshold for ultrasound
fentanyl for pain as needed
Discussed w/Dr. Gama
[2024-12-02 16:16] LABS: Hematocrit 35.6 % (39.0-52.0); Hemoglobin 11.6 g/dL (13.0-18.0); Mean Corp Hgb Conc. 32.6 g/dL (33.0-37.0); Mean Corpuscular Volume 86.0 fL (80.0-94.0); Platelet Count 172 10^3/uL (130-400); Red Cell Dist. Width 13.6 % (11.5-14.5)
[2024-12-02] MEDS: LYRICA 50 MG PO (17:52)
--- NOTE | 2024-12-02 18:30 | PTCARENOTE ---
Patient pressed call correia at 1500 complaining of pain in his left groin. Hematoma noted by nurse and manual pressure held. Laura Armijo SHOE STAMPER notified and saw patient, pressure held to the left groin for 20mins and an additional 25mins. Complaining of pain
and given a total of 25mcg of IV fentanyl. Given IV fluid bolus of 500ml of NS over 2 hours, H/H and type and screen sent to the lab. Patient maintained flat bedrest until 1700, left groin is ecchymotic but dressing is dry and intact, surrounding
area is soft and patient is pain free. Sitting with HOB elevated 30 degrees now and aware of bedrest until 1999. Dinner ordered, call correia in reach.
[2024-12-02] MEDS: TYLENOL 650 MG PO (19:53)
[2024-12-02] MEDS: MELATONIN 3 MG PO (21:30)
[2024-12-02] MEDS: KLONOPIN 0.5 MG PO (21:30)
[2024-12-02] MEDS: PROGRAF 1 MG PO (21:31)
[2024-12-02] MEDS: COLACE 100 MG PO (21:31)
[2024-12-02] MEDS: LAMICTAL 400 MG PO (21:31)
[2024-12-02] MEDS: LIPITOR 80 MG PO (21:31)
[2024-12-03] VITALS (13 sets, daily range): BP systolic 74–141; BP diastolic 58–73; BMI 26.2
[2024-12-03 03:45] LABS: Hematocrit 34.4 % (39.0-52.0); Hemoglobin 11.4 g/dL (13.0-18.0); Mean Corp Hgb Conc. 33.1 g/dL (33.0-37.0); Mean Corpuscular Volume 85.6 fL (80.0-94.0); Platelet Count 173 10^3/uL (130-400); Red Cell Dist. Width 13.5 % (11.5-14.5)
[2024-12-03 04:10] LABS: Blood Urea Nitrogen 24 mg/dl (9-20); Calcium 8.2 mg/dl (8.4-10.2); Carbon Dioxide 24 mmol/L (22-30); Chloride 109 mmol/L (98-107); Estimated Creatinine Clearance 65 ml/min; Glucose 93 mg/dl (70-99); Potassium 4.5 mmol/L (3.5-5.1); Sodium 139 mmol/L (135-145); eGFR > 60.00
--- NOTE | 2024-12-03 06:37 | PTCARENOTE ---
Pt NSR on monitor. VSS. Pt c/o left groin pain 07/17. PRN Tylenol given. Left groin post cath dsg CDI.
[2024-12-03] MEDS: ASPIR LOW (ENTERIC COATED) 81 MG PO (08:28)
[2024-12-03] MEDS: BRILINTA 90 MG PO ×2 (08:28→20:06)
[2024-12-03] MEDS: LATUDA 60 MG PO (08:28)
[2024-12-03] MEDS: FLORINEF 0.1 MG PO (08:28)
[2024-12-03] MEDS: MAGNESIUM OXIDE 400 MG PO ×2 (08:29→20:06)
[2024-12-03] MEDS: MYFORTIC DELAYED REL. 540 MG PO ×2 (08:30→20:06)
[2024-12-03] MEDS: PEPCID 20 MG PO (08:30)
[2024-12-03] MEDS: VITAMIN D3 (cholecalciferol) 50 MCG PO (08:30)
[2024-12-03] MEDS: SENSIPAR 90 MG PO ×2 (08:30→20:05)
[2024-12-03] MEDS: COLACE 100 MG PO (08:31)
[2024-12-03] MEDS: MIRALAX 17 GRAMS PO (08:31)
[2024-12-03] MEDS: FLUSH (NSS) 2 FLUSH IV (08:31)
--- NOTE | 2024-12-03 09:49 | W.PN.HOSP.TC ---
Today's Communication/Plan
-
Cardiology consulted IR for compression versus thrombin injection
Hopeful for discharge tomorrow
Assessment / Plan
Assessment / Plan
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
peripheral neuropathy, presenting with chest discomfort that occurred last week and today. �Described as pressure sharp stabbing with breathing. EKG shows nonspecific ST changes. �Troponin 0.84.
Patient with NSTEMI. �Trend troponins. �Check echocardiogram. �Check A1c and lipid panel. �As needed nitroglycerin. �Continue aspirin and Brilinta. �Heparin drip started. �N.p.o. postmidnight for potential catheterization tomorrow as per cardiology.
Assessment/plan:
NSTEMI
- Appreciate cardiology input, status post cardiac catheterization with PCI and stent placement on 12/02
- Status post heparin drip
- Continue aspirin, Brilinta
- Follow-up with usual correctional nurse, Dr. Salvador Rojas in office
Left groin pseudoaneurysm
- Cardiology consulted IR for compression versus thrombin injection
Renal Transplant
-Continue fludrocortisone, mycophenolate and tacrolimus
-Nephrology consulted as patient received contrast for his cardiac catheterization
-Creatinine remains normal
Moderate / Severe Aortic Stenosis
-Patient reports his Unemployment Examiner as Luis Angel is watching his valve with plans to undergo TAVR evaluation in the future
-12/02 Echo shows severe
Hyperlipidemia
-LDL at goal at 56
-Continue atorvastatin
Hyperparathyroidism
-Continue cinacalcet
Anxiety / Bipolar Disorder
-Continue clonazepam, lurasidone, and lamotrigine
Peripheral Neuropathy
-Continue pregabalin
Lactose intolerance
-Low lactose diet
Constipation
-Laxatives
Weakness
- Consult PT
DVT proph: Subcu Lovenox
Code Status: Full Code
Total time spent to see the patient on the floor, examine the patient, review data and lab results, discuss treatment plan with patient, nursing staff around 50 minutes.
Physical Exam
General: No acute distress
HEENT: Normocephalic, Atraumatic, EOMI, MMM
Respiratory: Clear to Auscultation bilaterally
Cardiac: Normal S1/S2, Regular Rate and Rhythm
GI: Soft, Nontender, Nondistended, Normal Bowel Sounds
: Left groin ecchymosis noted
Extremities: No Clubbing, Cyanosis, or Edema
Neuro: Hand tremor noted
Psych: Calm, Cooperative
Anticipated Discharge: Within 24 hours
Subjective/Interval History
-
Date of Service: December 03, 2024
Patient complains of left groin pain. He also reports feeling weak, and having hard stools. Chest pressure resolved. No shortness of breath. No fever, no vomiting.
Objective Data
-
Labs:
Laboratory Results
12/03/24 12/03/24
03:26 06:00
WBC 7.9
Hgb 11.4 L
Hct 34.4 L
Plt Count 173
APTT Cancelled
Sodium 139
Potassium 4.5
Chloride 109 H
Carbon Dioxide 24
BUN 24 H
Creatinine 1.1
Glucose 93
Calcium 8.2 L
Vital Signs:
Vital Signs
Temp Pulse Resp BP Pulse Ox
98.3 F 73 13 126/61 94
12/03/24 07:18 12/03/24 08:15 12/03/24 07:18 12/03/24 07:21 12/03/24 07:18
I&O
12/02/24 12/03/24 12/04/24
06:59 06:59 06:59
Intake Total 200 / 200 1430 / 1430
Output Total 600 / 600 1495 / 1495 400 / 400
Balance -400 / -400 -65 / -65 -400 / -400
--- NOTE | 2024-12-03 09:51 | W.PN.CARDCBS ---
Addendum entered and electronically signed by Selvin King MD 12/03/24 15:17:
I saw and examined the patient.
The Flight Physician's note was reviewed and I agree with the note.
Comment:
GEN: No distress, awake, Ox3
HEENT: supple, anicteric, mmm
LUNGS: CTA, no wheezes/rales
CV: Reg, S1/S2, 2/6 syst LSB, no gallop
ABD: soft, BS+, NT/ND
EXT: L groin swelling/bruising
NEURO: Gross non-focal
SKIN: No rash
Plan:
Groin ultrasound with left pseudoaneurysm. Await injection by interventional radiology with thrombin. Hemoglobin stable at 11.4
Continue aspirin and Plavix status post PCI of OM/left circumflex artery with restenosis.
Echo reviewed with patient. Mean gradient is 39 mm brianna and consistent with severe aortic stenosis.
Creatinine stable at 1.1. Continue atorvastatin.
No RO or beta-luisa due to orthostasis. Continue Florinef.
Original Note:
Today's Communication / Plan
-
Checked left groin U/S
Continue aspirin and Plavix
Cre stable following cath with history of renal transplant
Anticipate discharge to home tomorrow
Impression / Plan
-
PCP: Dr. Francisco Kearns
Cardiology: Previously followed with Dr. Bill Petit at [facility] [phone], now follows with Dr. Salvador Rojas at [facility] [phone]
Impression:
Admitted with chest pain and elevated troponin 12/01/2024
NSTEMI, initial troponin 0.8 and trending down thereafter
CAD
Remote PCI details and exact date unknown 2009
s/p PCI of OM-1 at [facility] 08/08/24
Severe being evaluated for TAVR are at [facility]
Patient is not currently scheduled for TAVR
s/p kidney transplant
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
Bipolar disorder
Echo 07/10/2023: AMH study, EF 60 to 65%, normal RV size and function, no MR/MS, moderate to severe with peak/mean 67/39 mmHg and DESHAWN 0.8 cm sq
Echo 12/02/2024: EF 59%, mild concentric LVH, normal RV size and function, severe mean gradient 39 mmHg
[facility] 08/08/2024: AMH study, diffuse calcific CAD with FFR positive stenosis in the proximal OM, s/p TUNG to OM-1, severely calcified up to 60% stenosis in the RCA luminal irregularities in the LM, calcified proximal and distal up to 40% plaque in the LAD
[facility] 12/02/2024: Stent in the OM1 has a hazy 95% restenotic segment, s/p shockwave lithotripsy of in-stent restenosis and then 3.5 mm Herreid TUNG, RCA is small and diffusely diseased, LM normal with minor distal tapering, LAD with 40 to 50% proximal
stenosis and the remainder has minor irregularities
Plan:
-Patient reports complete symptomatic improvement following PCI 12/02/2024. Patient developed left groin hematoma following cath 12/02/2024, manual compression performed, but ongoing soft tissue swelling and ecchymosis. Patient previously had right
groin pseudoaneurysm after PCI 08/08/2024 at [facility]. Check left groin U/S, ordered by nv 12/03/2024.
-Hgb stable at 8.4 on labs reviewed by nv 12/03/2024
-Patient tolerating his usual doses of aspirin 81 mg daily and Brilinta 90 mg BID
-Patient will be managed as NSTEMI, initial troponin was 0.8 and trended down thereafter. Suspect this was a late presentation with patient noting symptoms starting 2 days prior to admission that he unfortunately incorrectly attributed to severe .
-LDL 56 and outpatient dose of atorvastatin 10 mg daily was increased to 80 mg daily, but on my review of medication interactions using Nancy comp there is interaction with tacrolimus and also his Brilinta, so atorvastatin dose decreased to 20 mg
daily which is still an increase from his admission dose.
-Cardiac rehab consulted, but patient is not a candidate for cardiac rehab as he lives in the long-term nursing care section at [facility] and is being evaluated by PT/OT
-GDMT limited by symptomatic orthostasis, patient is chronically on Florinef 0.1 mg daily
-Patient has known severe and is following with Dr. Salvador Rojas at [facility] [place], patient scheduled to see Dr. Rojas on , 12/11/2024. I talked with Dr. Rojas's office and got records from them 12/02/2024. Also he got records from Dr. Petit's
office at [facility] and all records reviewed and summarized above by me
-Kidney transplant was due to ESRD from lithium toxicity. Cre is 1. 1.1 on my review of labs 12/03/2024. Prescient input from nephrology, patient was treated with bicarbonate fluids at time of cath. Outpatient doses of tacrolimus and mycophenolate
were continued this admission
-Pending results of groin U/S patient is likely for discharge back to [facility] on 11/26/2024. Updated hospitalist attending via TT
HPI: Patient came to the ER yesterday with chest pain and was admitted with elevated troponin, cardiology is now consulted. Patient used to follow with [facility] cardiology and had a cath 08/08/24 resulting in OM1 stent, but there was residual
nonobstructive RCA and LAD disease. Patient then had a pseudoaneurysm with 5-day hospitalization. Patient decided to transition his cardiology care to Dr. Rojas at [facility] and is following with their office for TAVR evaluation, but is not currently
scheduled for TAVR. Patient lives in the long-term care section at [facility], but reports he has his own room although they handle all of his medications and meals. Patient has lived there for 3 years and says this is his
long-term living situation. Patient reports 2 hours of chest pain starting at 10 AM yesterday that persisted until he came to the ER and had 3 different NTG SL treatments. He has been pain-free since then. Patient started on heparin gtt after his
initial troponin returned elevated at 0.8, troponin trending down thereafter. Patient is a difficult historian and did not tell me that he called his supervisor tumblers at [facility] yesterday and is scheduled to see them next . He also mentioned in
passing that he had an episode of weakness and shortness of breath 2 days ago because 'these are my to have our symptoms you only need to know about my heart attack symptoms.'
Progress Note - Personnel Clerk
Subjective
Date of Service: December 03, 2024
He has had dramatic symptomatic improvement, no more chest pain. He has left groin swelling, but no resting pain
Objective
Labs:
12/03/24 03:26
12/03/24 03:
Labs
Hgb 11.4 g/dL (13.0-18.0) L 12/03/24 03:26
Hct 34.4 % (39.0-52.0) L 12/03/24 03:26
Plt Count 173 10^3/uL (130-400) 12/03/24 03:26
PT 14.7 Sec (11.4-14.6) H 12/01/24 17:38
INR 1.12 12/01/24 17:38
APTT Cancelled 12/03/24 06:00
Sodium 139 mmol/L (135-145) 12/03/24 03:26
Potassium 4.5 mmol/L (3.5-5.1) 12/03/24 03:26
BUN 24 mg/dl (9-20) H 12/03/24 03:26
Creatinine 1.1 mg/dL (0.7-1.3) 12/03/24 03:26
Glucose 93 mg/dl (70-99) 12/03/24 03:26
Troponins
12/01/24 12/01/24 12/02/24
16:30 23:38 05:22
Troponin I 0.842 H* 0.791 H* 0.703 H*
12/02/24
09:52
Troponin I 0.633 H*
Vital Signs and I&O:
Vital Signs
Temp Pulse Resp BP Pulse Ox
98.3 F 73 13 126/61 94
12/03/24 07:18 12/03/24 08:15 12/03/24 07:18 12/03/24 07:21 12/03/24 07:18
Vital Signs
Temp Pulse Resp BP Pulse Ox
98.3 F 73 13 126/61 94
12/03/24 07:18 12/03/24 08:15 12/03/24 07:18 12/03/24 07:21 12/03/24 07:18
Intake & Output
12/01/24 12/02/24 12/03/24 12/04/24
06:59 06:59 06:59 06:59
Intake Total 200 / 200 1430 / 1430
Output Total 600 / 600 1495 / 1495 400 / 400
Balance -400 / -400 -65 / -65 -400 / -400
Physical Exam
Physical Exam
GEN: NAD, AAO x 3
LUNGS: RA. No wheeze
CV: SR on telemetry.
EXT: Left groin soft tissue swelling with ecchymosis, no bruit, mild tenderness
NEURO: Tremulous.
[2024-12-03] MEDS: SENOKOT-S 1 TABLET PO (10:56)
[2024-12-03] MEDS: PROGRAF 1 MG PO ×2 (10:56→22:09)
--- NOTE | 2024-12-03 11:07 | W.PN.UPDATE ---
Update Note
Progress Note Update
Update from interventional radiology, patient has a small pseudoaneurysm left groin about 1.1 cm. Consult to IR for compression versus injection, order placed by me.
[2024-12-03] MEDS: MILK OF MAGNESIA 30 ML PO (13:01)
--- NOTE | 2024-12-03 17:21 | CM ---
Reviewed chart. Met with Mr. Joseph to review discharge plans. He resides at [facility]. Will need to see his current functional level to see if he will have any skilled care needs. We reviewed transportation and out of pocket
cost. He states his community mental health social worker at [facility] that the wheelchair can be billed to Medical assistance. Medical work-up in progress. The discharge plan is to return to [facility] when medically stable.
[2024-12-03] MEDS: LIPITOR 20 MG PO (17:40)
[2024-12-03] MEDS: LYRICA 50 MG PO (17:40)
--- NOTE | 2024-12-03 18:35 | PTCARENOTE ---
Patient returned from IR after thrombin injection at 1630. Band aid in place left groin, area still edematous but soft, left foot cool with palpable pedal pulse. Patient maintained flat bedrest x 2 hours as instructed. Sitting up in bed now eating
dinner, call correia in reach.
--- NOTE | 2024-12-03 20:00 | PTCARENOTE ---
report received from previous RN, walking rounds done. pt in bed, AAOx4, pt denies any pain. NSR on monitor, HR 70s. L groin site ecchymotic and soft, no presence of bleeding noted. B/L radial and DP pulses palpable. heart tones clear. bilateral
breath sounds present. POX 96% on room air. pt voids without difficulty. +BS. PIV intact and patent. see worklist for full assessment, VS, and interventions.
[2024-12-03] MEDS: KLONOPIN 0.5 MG PO (22:09)
[2024-12-03] MEDS: LAMICTAL 400 MG PO (22:10)
[2024-12-03] MEDS: MELATONIN 3 MG PO (22:10)
[2024-12-04] VITALS (9 sets, daily range): BP systolic 103–139; BP diastolic 54–62; BMI 26.0
--- NOTE | 2024-12-04 08:00 | PTCARENOTE ---
Rec'd pt at handoff. Tele- SR. L groin site is ecchymotic. L DP present w/ doppler. No complaints pain/discomfort at this time. Pt sent to f/u ultrasound for L groin site.
[2024-12-04] MEDS: SENSIPAR 90 MG PO ×2 (08:54→19:38)
[2024-12-04] MEDS: BRILINTA 90 MG PO ×2 (08:54→19:38)
[2024-12-04] MEDS: LATUDA 60 MG PO (08:54)
[2024-12-04] MEDS: FLORINEF 0.1 MG PO (08:54)
[2024-12-04] MEDS: MYFORTIC DELAYED REL. 540 MG PO ×2 (08:54→19:38)
[2024-12-04] MEDS: ASPIR LOW (ENTERIC COATED) 81 MG PO (08:55)
[2024-12-04] MEDS: VITAMIN D3 (cholecalciferol) 50 MCG PO (08:55)
[2024-12-04] MEDS: MAGNESIUM OXIDE 400 MG PO ×2 (08:55→19:38)
[2024-12-04] MEDS: PEPCID 20 MG PO (08:55)
--- NOTE | 2024-12-04 09:30 | W.PN.HOSP.TC ---
Today's Communication/Plan
-
Dulcolax suppository
Keep for repeat groin ultrasound tomorrow
Assessment / Plan
Assessment / Plan
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
peripheral neuropathy, presenting with chest discomfort that occurred last week and today. �Described as pressure sharp stabbing with breathing. EKG shows nonspecific ST changes. �Troponin 0.84.
Patient with NSTEMI. �Trend troponins. �Check echocardiogram. �Check A1c and lipid panel. �As needed nitroglycerin. �Continue aspirin and Brilinta. �Heparin drip started. �N.p.o. postmidnight for potential catheterization tomorrow as per cardiology.
Assessment/plan:
NSTEMI
- Appreciate cardiology input, status post cardiac catheterization with PCI and stent placement on 12/02
- Status post heparin drip
- Continue aspirin, Brilinta
- Follow-up with usual smoking tobacco cutter operator, Dr. Salvador Rojas in office
Left groin pseudoaneurysm
- Status post thrombin injection in IR 12/03/2024
- Repeat ultrasound this a.m. shows pseudoaneurysm almost completely thrombosed with 3 mm patent portion still open
- Keep for repeat groin ultrasound tomorrow
Renal Transplant
-Continue fludrocortisone, mycophenolate and tacrolimus
-Nephrology consulted as patient received contrast for his cardiac catheterization
-Creatinine remains normal
Moderate / Severe Aortic Stenosis
-Patient reports his Residential Finish Carpenter as Luis Angel is watching his valve with plans to undergo TAVR evaluation in the future
-12/02 Echo shows severe
Hyperlipidemia
-LDL at goal at 56
-Continue atorvastatin
Hyperparathyroidism
-Continue cinacalcet
Anxiety / Bipolar Disorder
-Continue clonazepam, lurasidone, and lamotrigine
Peripheral Neuropathy
-Continue pregabalin
Lactose intolerance
-Low lactose diet
Constipation
-Laxatives, Dulcolax suppository
Weakness
-Resides at [facility]
-PT rec HH vs SNF
Familial tremor syndrome
-Monitor
DVT proph: Subcu Lovenox
Code Status: Full Code
Total time spent to see the patient on the floor, examine the patient, review data and lab results, discuss treatment plan with patient, nursing staff around 40 minutes.
Physical Exam
General: No acute distress
HEENT: Normocephalic, Atraumatic, EOMI, MMM
Respiratory: Clear to Auscultation bilaterally
Cardiac: Normal S1/S2, Regular Rate and Rhythm
GI: Soft, Nontender, Nondistended, Normal Bowel Sounds
: Left groin ecchymosis noted
Extremities: No Clubbing, Cyanosis, or Edema
Neuro: Hand tremor noted
Anticipated Discharge: Within 24 hours
Subjective/Interval History
-
Date of Service: December 03, 2024
Patient's left groin pain has improved. Reports constipation. No chest pain, no shortness of breath. No fever, no vomiting.
Objective Data
-
Vital Signs:
Vital Signs
Temp Pulse Resp BP Pulse Ox
98.7 F 75 25 127/59 97
12/03/24 15:20 12/03/24 16:27 12/03/24 16:27 12/03/24 16:27 12/03/24 16:19
I&O
12/02/24 12/03/24 12/04/24
06:59 06:59 06:59
Intake Total 200 / 200 1430 / 1430 240 / 240
Output Total 600 / 600 1495 / 1495 600 / 600
Balance -400 / -400 -65 / -65 -360 / -360
[2024-12-04] MEDS: PROGRAF 1 MG PO ×2 (09:48→22:05)
[2024-12-04] MEDS: DULCOLAX 10 MG RECTAL (10:57)
--- NOTE | 2024-12-04 11:26 | W.PN.NEPH.PH ---
Today's Communication / Plan
-
Stable renal function okay for discharge from renal standpoint
Assessment/Plan
-
Assessment
NSTEMI
Living unrelated renal transplant right lower quadrant
Severe aortic stenosis
Bipolar disorder
hypertension
Plan
12/03 status post PCI
Follow BMP
Check tacrolimus level tomorrow he says that his dose was changed about 3 weeks ago with an increase from 1 mg in the morning and 0.5 mg at night to 1 mg twice daily= pending
Creatinine remained stable post cath 24 hours
-
-
Date of Service: December 04, 2024
CC / HPI / ROS
-
Chief Complaint:
NSTEMI
History of Present Illness:
Renal transplant NSTEMI status post PCI patient
Review of Systems:
No chest pain or shortness of breath
Labs
-
Labs:
WBC 7.9 10^3/uL (4.8-10.8) 12/03/24 03:26
RBC 4.02 10^6/uL (4.70-6.10) L 12/03/24 03:26
Hgb 11.4 g/dL (13.0-18.0) L 12/03/24 03:26
Hct 34.4 % (39.0-52.0) L 12/03/24 03:26
Plt Count 173 10^3/uL (130-400) 12/03/24 03:26
Sodium 139 mmol/L (135-145) 12/03/24 03:26
Potassium 4.5 mmol/L (3.5-5.1) 12/03/24 03:26
Chloride 109 mmol/L (98-107) H 12/03/24 03:26
Carbon Dioxide 24 mmol/L (22-30) 12/03/24 03:26
BUN 24 mg/dl (9-20) H 12/03/24 03:26
Creatinine 1.1 mg/dL (0.7-1.3) 12/03/24 03:26
eGFR > 60.00 12/03/24 03:26
Glucose 93 mg/dl (70-99) 12/03/24 03:26
Calcium 8.2 mg/dl (8.4-10.2) L 12/03/24 03:26
Albumin 3.9 g/dl (3.5-5.0) 12/02/24 05:22
Physical Exam
-
Vital Signs:
Vital Signs
Temp Pulse Resp BP Pulse Ox
97.9 F 92 20 114/58 95
12/04/24 07:37 12/04/24 08:00 12/04/24 07:37 12/04/24 07:38 12/04/24 08:45
Respiratory:: Bilateral: CTA
Lung Excursion:: Normal
Abdomen:: Soft
Bowel Sounds:: Normal
Extremity Edema:: None: Bilateral:
--- NOTE | 2024-12-04 12:20 | W.PN.CARDCBS ---
Addendum entered and electronically signed by Selvin King MD 12/04/24 17:43:
I saw and examined the patient.
The Fermenter's note was reviewed and I agree with the note.
Comment:
GEN: No distress, awake, Ox3
HEENT: supple, anicteric, mmm
LUNGS: CTA, no wheezes/rales
CV: Reg, S1/S2, 3/6 syst LSB, no gallop
ABD: soft, BS+, NT/ND
EXT: L groin ecchymosis
NEURO: Gross non-focal
SKIN: No rash
Plan:
Overall feeling better. No new chest pains. Status post thrombin injection for pseudoaneurysm but still with a small communication. Plan is for repeat ultrasound in a.m. tomorrow. If this is stable for likely discharge.
Continue aspirin, Brilinta, and atorvastatin.
He does have severe aortic stenosis and will continue TAVR evaluation at [place].
Creatinine 1.1. Continue tacrolimus for renal transplant
Original Note:
Today's Communication / Plan
-
repeat L groin US in AM
continue asa, brilinta, lipitor
Impression / Plan
-
PCP: Dr. Francisco Kearns
Cardiology: Previously followed with Dr. Bill Petit at [facility] [phone], now follows with Dr. Salvador Rojas at [place] [phone]
Impression:
Admitted with chest pain and elevated troponin 12/01/2024
NSTEMI, initial troponin 0.8 and trending down thereafter
CAD
Remote PCI details and exact date unknown 2009
s/p PCI of OM-1 at [facility] 08/08/24
Severe being evaluated for TAVR are at [place]
Patient is not currently scheduled for TAVR
s/p kidney transplant
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
Bipolar disorder
Echo 07/10/2023: [facility] study, EF 60 to 65%, normal RV size and function, no MR/MS, moderate to severe with peak/mean 67/39 mmHg and DESHAWN 0.8 cm sq
Echo 12/02/2024: EF 59%, mild concentric LVH, normal RV size and function, severe mean gradient 39 mmHg
C 08/08/2024: [facility] study, diffuse calcific CAD with FFR positive stenosis in the proximal OM, s/p TUNG to OM-1, severely calcified up to 60% stenosis in the RCA luminal irregularities in the LM, calcified proximal and distal up to 40% plaque in the LAD
C 12/02/2024: Stent in the OM1 has a hazy 95% restenotic segment, s/p shockwave lithotripsy of in-stent restenosis and then 3.5 mm Anthony TUNG, RCA is small and diffusely diseased, LM normal with minor distal tapering, LAD with 40 to 50% proximal
stenosis and the remainder has minor irregularities
Plan:
- Patient with known CAD status post OM PCI 08/2024 at [facility] presented to [facility] with complaints of chest pressure and elevated troponin.
- Underwent cardiac catheterization 12/02/2024 which showed early restenosis/stent failure of OM stent status post shockwave lithotripsy and PCI
- Post procedurally patient developed left groin hematoma and by ultrasound had evidence of L groin pseudoaneurysm status post thrombin injection in IR 12/03/2024. By repeat ultrasound this a.m. pseudoaneurysm almost completely thrombosed with 3 mm
patent portion still open. Moro most likely to thrombose spontaneously, however will repeat ultrasound in a.m. for reassessment
- Hemoglobin 11.4 on 12/03. Continue aspirin, Brilinta
- LDL 56. Lipitor was increased from 10 mg daily to 20 mg daily this admission. Cannot increase further due to potential interactions with tacrolimus and Brilinta
- Not felt to be candidate for cardiac rehab as in long-term care at [facility]. PT OT following
- GDMT limited by symptomatic orthostasis, patient is chronically on Florinef 0.1 mg daily
- In sinus rhythm on review of telemetry
- Patient has known severe and is following with Dr. Salvador Rojas at [place], patient scheduled to see Dr. Rojas on , 12/11/2024.
- Kidney transplant was due to ESRD from lithium toxicity. Cr is 1.1 12/03/2024. Outpatient doses of tacrolimus and mycophenolate were continued this admission
- Likely for discharge back to [facility] 12/05. Discussed with hospitalist via [place] text
HPI: Patient came to the ER yesterday with chest pain and was admitted with elevated troponin, cardiology is now consulted. Patient used to follow with [facility] cardiology and had a cath 08/08/24 resulting in OM1 stent, but there was residual
nonobstructive RCA and LAD disease. Patient then had a pseudoaneurysm with 5-day hospitalization. Patient decided to transition his cardiology care to Dr. Rojas at [place] and is following with their office for TAVR evaluation, but is not currently
scheduled for TAVR. Patient lives in the long-term care section at [facility], but reports he has his own room although they handle all of his medications and meals. Patient has lived there for 3 years and says this is his
long-term living situation. Patient reports 2 hours of chest pain starting at 10 AM yesterday that persisted until he came to the ER and had 3 different NTG SL treatments. He has been pain-free since then. Patient started on heparin gtt after his
initial troponin returned elevated at 0.8, troponin trending down thereafter. Patient is a difficult historian and did not tell me that he called his facilities plant engineer at [place] yesterday and is scheduled to see them next . He also mentioned in
passing that he had an episode of weakness and shortness of breath 2 days ago because 'these are my to have our symptoms you only need to know about my heart attack symptoms.'
Progress Note - Protective Services Case Worker
Subjective
Date of Service: December 04, 2024
denies CP, SOB. Denies groin pain
Objective
Labs:
12/03/24 03:26
12/03/24 03:26
Labs
Hgb 11.4 g/dL (13.0-18.0) L 12/03/24 03:26
Hct 34.4 % (39.0-52.0) L 12/03/24 03:26
Plt Count 173 10^3/uL (130-400) 12/03/24 03:26
PT 14.7 Sec (11.4-14.6) H 12/01/24 17:38
INR 1.12 12/01/24 17:38
APTT Cancelled 12/03/24 06:00
Sodium 139 mmol/L (135-145) 12/03/24 03:26
Potassium 4.5 mmol/L (3.5-5.1) 12/03/24 03:26
BUN 24 mg/dl (9-20) H 12/03/24 03:26
Creatinine 1.1 mg/dL (0.7-1.3) 12/03/24 03:26
Glucose 93 mg/dl (70-99) 12/03/24 03:26
Troponins
12/01/24 12/01/24 12/02/24
16:30 23:38 05:22
Troponin I 0.842 H* 0.791 H* 0.703 H*
12/02/24
09:52
Troponin I 0.633 H*
Vital Signs and I&O:
Vital Signs
Temp Pulse Resp BP Pulse Ox
98.4 F 73 20 122/62 95
12/04/24 11:54 12/04/24 12:00 12/04/24 11:54 12/04/24 11:54 12/04/24 11:54
Vital Signs
Temp Pulse Resp BP Pulse Ox
98.4 F 73 20 122/62 95
12/04/24 11:54 12/04/24 12:00 12/04/24 11:54 12/04/24 11:54 12/04/24 11:54
Intake & Output
12/02/24 12/03/24 12/04/24 12/05/24
07:59 07:59 07:59 07:59
Intake Total 200 / 200 1430 / 1670 240 / 240 300 / 300
Output Total 600 / 600 1895 / 2095 900 / 900 400 / 400
Balance -400 / -400 -465 / -425 -660 / -660 -100 / -100
Physical Exam
Physical Exam
GEN: No distress, awake, alert, oriented x3. Sitting in chair
HEENT: supple, anicteric, mmm, EOMI
LUNGS: CTA bilaterally, no wheezes/rales
CV: Reg, S1/S2, 2/6 syst LSB cyanosis, clubbing,
ABD: soft, BS+, NT/ND
EXT: No cyanosis, clubbing, edema
NEURO: Gross non-focal
SKIN: Warm, pink, dry. No rash
--- NOTE | 2024-12-04 14:54 | CM ---
Reviewed chart. Met with Mr. Joseph to review discharge plans. Reviewed therapy recommendations for SNF/Rehab. Reviewed with Mr. Joseph he is agreeable to SNF/Rehab. Telephone call [facility] Liaison to make the referral. Sent the
referral. Medically work in progress. The discharge plan is to go to [facility] SNF when medically stable.
[2024-12-04] MEDS: LIPITOR 20 MG PO (18:12)
[2024-12-04] MEDS: LYRICA 50 MG PO (18:12)
[2024-12-04] MEDS: FLUSH (NSS) 1 FLUSH IV (19:47)
[2024-12-04] MEDS: LAMICTAL 400 MG PO (22:04)
[2024-12-04] MEDS: KLONOPIN 0.5 MG PO (22:04)
[2024-12-04] MEDS: MELATONIN 3 MG PO (22:04)
--- NOTE | 2024-12-05 00:45 | PTCARENOTE ---
Received pt @ change of shift. AAOx3, VSS-- NSR on monitor. Left groin site ecchymotic, 4.0x1.0 hard spot, rest soft to touch. Discussed plan of care for evening and morning. Pt verbalizes understanding. Call correia within reach.
[2024-12-05 04:51] VITALS: BP 135/69
[2024-12-05 06:00] VITALS: BMI 25.9
[2024-12-05 06:19] LABS: Hematocrit 34.3 % (39.0-52.0); Hemoglobin 11.4 g/dL (13.0-18.0); Mean Corp Hgb Conc. 33.2 g/dL (33.0-37.0); Mean Corpuscular Volume 85.5 fL (80.0-94.0); Platelet Count 170 10^3/uL (130-400); Red Cell Dist. Width 13.4 % (11.5-14.5)
[2024-12-05 06:32] LABS: Blood Urea Nitrogen 20 mg/dl (9-20); Calcium 8.3 mg/dl (8.4-10.2); Carbon Dioxide 24 mmol/L (22-30); Chloride 108 mmol/L (98-107); Estimated Creatinine Clearance 59 ml/min; Glucose 97 mg/dl (70-99); Potassium 4.3 mmol/L (3.5-5.1); Sodium 140 mmol/L (135-145); eGFR > 60.00
[2024-12-05] MEDS: SENSIPAR 90 MG PO ×2 (08:32→19:19)
[2024-12-05 08:33] VITALS: BP 114/48
[2024-12-05] MEDS: ASPIR LOW (ENTERIC COATED) 81 MG PO (08:33)
[2024-12-05] MEDS: LATUDA 60 MG PO (08:33)
[2024-12-05] MEDS: PEPCID 20 MG PO (08:33)
[2024-12-05] MEDS: MYFORTIC DELAYED REL. 540 MG PO ×2 (08:33→19:19)
[2024-12-05] MEDS: MAGNESIUM OXIDE 400 MG PO ×2 (08:33→19:19)
[2024-12-05] MEDS: BRILINTA 90 MG PO ×2 (08:33→19:19)
[2024-12-05] MEDS: FLORINEF 0.1 MG PO (08:33)
[2024-12-05] MEDS: VITAMIN D3 (cholecalciferol) 50 MCG PO (08:38)
--- NOTE | 2024-12-05 10:21 | W.PN.CARDCBS ---
Addendum entered and electronically signed by Selvin King MD 12/05/24 11:20:
I saw and examined the patient.
The Test Director's note was reviewed and I agree with the note.
Comment: GEN: No distress, awake, Ox3
HEENT: supple, anicteric, mmm
LUNGS: CTA, no wheezes/rales
CV: Reg, S1/S2, 3/6 syst LSB, no gallop
ABD: soft, BS+, NT/ND
EXT: No edema
NEURO: Gross non-focal
SKIN: No rash
Plan:
Repeat ultrasound overall stable with no further pseudoaneurysm.
Hemoglobin stable 11.4.
Continue aspirin, Brilinta, atorvastatin.
Patient states he prefers to follow-up at [facility] cardiology with Dr. Petit again
Original Note:
Today's Communication / Plan
-
ok for DC
continue asa, brilinta, lipitor
TAVR work up ongoing through Dr. Rojas [facility]
Impression / Plan
-
PCP: Dr. Francisco Kearns
Cardiology: Previously followed with Dr. Bill Petit at [facility] [phone], now follows with Dr. Salvador Rojas at [facility] [phone]
Impression:
Admitted with chest pain and elevated troponin 12/01/2024
NSTEMI, initial troponin 0.8 and trending down thereafter
CAD
Remote PCI details and exact date unknown 2009
s/p PCI of OM-1 at [facility] 08/08/24
Severe being evaluated for TAVR are at [facility]
Patient is not currently scheduled for TAVR
s/p kidney transplant
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
Bipolar disorder
Echo 07/10/2023: [facility] study, EF 60 to 65%, normal RV size and function, no MR/MS, moderate to severe with peak/mean 67/39 mmHg and DESHAWN 0.8 cm sq
Echo 12/02/2024: EF 59%, mild concentric LVH, normal RV size and function, severe mean gradient 39 mmHg
C 08/08/2024: [facility] study, diffuse calcific CAD with FFR positive stenosis in the proximal OM, s/p TUNG to OM-1, severely calcified up to 60% stenosis in the RCA luminal irregularities in the LM, calcified proximal and distal up to 40% plaque in the LAD
[facility] 12/02/2024: Stent in the OM1 has a hazy 95% restenotic segment, s/p shockwave lithotripsy of in-stent restenosis and then 3.5 mm [place] TUNG, RCA is small and diffusely diseased, LM normal with minor distal tapering, LAD with 40 to 50% proximal
stenosis and the remainder has minor irregularities
Plan:
- Patient with known CAD status post OM PCI 08/2024 at [facility] presented to [facility] with complaints of chest pressure and elevated troponin.
- Underwent cardiac catheterization 12/02/2024 which showed early restenosis/stent failure of OM stent status post shockwave lithotripsy and PCI
- Post procedurally patient developed left groin hematoma and by ultrasound had evidence of L groin pseudoaneurysm status post thrombin injection in IR 12/03/2024. By repeat US 12/05 pseudo completely thrombosed. remains with ecchymoses of L groin
however nontender
- Hemoglobin stable 11.4 on 12/05. Continue aspirin, Brilinta
- LDL 56. Lipitor was increased from 10 mg daily to 20 mg daily this admission. Cannot increase further due to potential interactions with tacrolimus and Brilinta
- Not felt to be candidate for cardiac rehab as in long-term care at [facility]. PT OT following
- GDMT limited by symptomatic orthostasis, patient is chronically on Florinef 0.1 mg daily
- In sinus rhythm on review of telemetry overnight
- Patient has known severe and is following with Dr. Salvador Rojsa at [facility], patient scheduled to see Dr. Rojas on , 12/11/2024.
- Kidney transplant was due to ESRD from lithium toxicity. Cr is 1.2 12/05/2024. Outpatient doses of tacrolimus and mycophenolate were continued this admission
- ok for DC to [facility] today from cardiac standpoint. Discussed with hospitalist via [place] text.
- he states he is planning to follow up with [facility] cardiology following TAVR
HPI: Patient came to the ER yesterday with chest pain and was admitted with elevated troponin, cardiology is now consulted. Patient used to follow with [facility] cardiology and had a cath 08/08/24 resulting in OM1 stent, but there was residual
nonobstructive RCA and LAD disease. Patient then had a pseudoaneurysm with 5-day hospitalization. Patient decided to transition his cardiology care to Dr. Rojas at [facility] and is following with their office for TAVR evaluation, but is not currently
scheduled for TAVR. [facility], but reports he has his own room although they handle all of his medications and meals. Patient has lived there for 3 years and says this is his
long-term living situation. Patient reports 2 hours of chest pain starting at 10 AM yesterday that persisted until he came to the ER and had 3 different NTG SL treatments. He has been pain-free since then. Patient started on heparin gtt after his
initial troponin returned elevated at 0.8, troponin trending down thereafter. Patient is a difficult historian and did not tell me that he called his pipe fitter supervisor at [facility] yesterday and is scheduled to see them next . He also mentioned in
passing that he had an episode of weakness and shortness of breath 2 days ago because 'these are my to have our symptoms you only need to know about my heart attack symptoms.'
Progress Note - Share Holder
Subjective
Date of Service: December 05, 2024
no complaints overnight. denies groin pain
Objective
Labs:
12/05/24 05:14
12/05/24 05:14
Labs
Hgb 11.4 g/dL (13.0-18.0) L 12/05/24 05:14
Hct 34.3 % (39.0-52.0) L 12/05/24 05:14
Plt Count 170 10^3/uL (130-400) 12/05/24 05:14
PT 14.7 Sec (11.4-14.6) H 12/01/24 17:38
INR 1.12 12/01/24 17:38
APTT Cancelled 12/03/24 06:00
Sodium 140 mmol/L (135-145) 12/05/24 05:14
Potassium 4.3 mmol/L (3.5-5.1) 12/05/24 05:14
BUN 20 mg/dl (9-20) 12/05/24 05:14
Creatinine 1.2 mg/dL (0.7-1.3) 12/05/24 05:14
Glucose 97 mg/dl (70-99) 12/05/24 05:14
Troponins
12/02/24
09:52
Troponin I 0.633 H*
Vital Signs and I&O:
Vital Signs
Temp Pulse Resp BP Pulse Ox
98.4 F 74 16 114/48 98
12/05/24 08:32 12/05/24 10:00 12/05/24 08:32 12/05/24 08:33 12/05/24 08:32
Vital Signs
Temp Pulse Resp BP Pulse Ox
98.4 F 74 16 114/48 98
12/05/24 08:32 12/05/24 10:00 12/05/24 08:32 12/05/24 08:33 12/05/24 08:32
Intake & Output
12/03/24 12/04/24 12/05/24 12/06/24
07:59 07:59 07:59 07:59
Intake Total 1430 / 1670 240 / 240 300 / 300
Output Total 1895 / 2095 900 / 900 900 / 900
Balance -465 / -425 -660 / -660 -600 / -600
Physical Exam
Physical Exam
GEN: No distress, awake, alert, oriented x3. sitting in chair. resting tremor
HEENT: supple, anicteric, mmm, eomi
LUNGS: CTA B/L, no wheezes/rales
CV: Reg, S1/S2, 2/6 syst LSB
ABD: soft, BS+, NT/ND
EXT: No cyanosis, clubbing, edema
NEURO: Gross non-focal
SKIN: Warm, pink, dry. No rash. L groin site with ecchymoses however no firm areas and NTTP. R groin site soft, c/d/i
--- NOTE | 2024-12-05 10:36 | W.PN.NEPH.PH ---
Today's Communication / Plan
-
Stable for discharge
Tacrolimus level was not properly obtained at the right time henceforth elevated levels not accurate
Assessment/Plan
-
Assessment
NSTEMI
Living unrelated renal transplant right lower quadrant
Severe aortic stenosis
Bipolar disorder
hypertension
Plan
GFR stable with creatinine of 1.2 status post PCI
Follow BMP
Check tacrolimus level tomorrow he says that his dose was changed about 3 weeks ago with an increase from 1 mg in the morning and 0.5 mg at night to 1 mg twice daily=13 (but sample was obtained at 3:26 AM)
Creatinine remained stable post cath 24 hours
Stable for discharge and follow-up tacrolimus trough level to be obtained next week and forwarded to nephrology
-
-
Date of Service: December 05, 2024
CC / HPI / ROS
-
Chief Complaint:
NSTEMI
History of Present Illness:
Renal transplant NSTEMI status post PCI patient
Creatinine stable at 1 point
Review of Systems:
Nonoliguric
Tremors no
No chest pain or shortness of breath
Labs
-
Labs:
WBC 7.9 10^3/uL (4.8-10.8) 12/05/24 05:14
RBC 4.01 10^6/uL (4.70-6.10) L 12/05/24 05:14
Hgb 11.4 g/dL (13.0-18.0) L 12/05/24 05:14
Hct 34.3 % (39.0-52.0) L 12/05/24 05:14
Plt Count 170 10^3/uL (130-400) 12/05/24 05:14
Sodium 140 mmol/L (135-145) 12/05/24 05:14
Potassium 4.3 mmol/L (3.5-5.1) 12/05/24 05:14
Chloride 108 mmol/L (98-107) H 12/05/24 05:14
Carbon Dioxide 24 mmol/L (22-30) 12/05/24 05:14
BUN 20 mg/dl (9-20) 12/05/24 05:14
Creatinine 1.2 mg/dL (0.7-1.3) 12/05/24 05:14
eGFR > 60.00 12/05/24 05:14
Glucose 97 mg/dl (70-99) 12/05/24 05:14
Calcium 8.3 mg/dl (8.4-10.2) L 12/05/24 05:14
Albumin 3.9 g/dl (3.5-5.0) 12/02/24 05:22
Physical Exam
-
Vital Signs:
Vital Signs
Temp Pulse Resp BP Pulse Ox
98.4 F 74 16 114/48 98
12/05/24 08:32 12/05/24 10:00 12/05/24 08:32 12/05/24 08:33 12/05/24 08:32
Respiratory:: Bilateral: CTA
Lung Excursion:: Normal
Abdomen:: Soft
Bowel Sounds:: Normal
Extremity Edema:: None: Bilateral:
[2024-12-05] MEDS: PROGRAF 1 MG PO ×2 (10:48→22:25)
[2024-12-05 11:29] VITALS: BP 138/55
[2024-12-05] MEDS: CITROMA 300 ML PO (12:32)
--- NOTE | 2024-12-05 14:07 | PTCARENOTE ---
Pt able to have BM after mag citrate administered. Pt reports the BM was still 'rock hard pellets' and that he 'doesn't want this to be a problem at home.' Advised pt to not flush toilet next time. Do aware.
--- NOTE | 2024-12-05 14:56 | CM ---
Reviewed chart. Mr Met with Jake to review discharge plans. He is not ready for transfer to [facility] today. He maybe ready for transfer to [facility] tomorrow. Acute Care will send ambulance and bill wheelchair rate at
1:00P.m. tomorrow. Telephone call to [facility] Liaison to update her. The report number is [phone] and fax number is [phone]. Updated Mr. Joseph regarding discharge plans.. Medical work-up in progress. The discharge pln is to
go to [facility] SNF tomorrow if medically stable.
[2024-12-05 15:36] VITALS: BP 114/57
--- NOTE | 2024-12-05 16:28 | W.PN.HOSP.TC ---
Today's Communication/Plan
-
Repeat milk of molasses enema
Plan for discharge tomorrow
Assessment / Plan
Assessment / Plan
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
peripheral neuropathy, presenting with chest discomfort that occurred last week and today. �Described as pressure sharp stabbing with breathing. EKG shows nonspecific ST changes. �Troponin 0.84.
Patient with NSTEMI. �Trend troponins. �Check echocardiogram. �Check A1c and lipid panel. �As needed nitroglycerin. �Continue aspirin and Brilinta. �Heparin drip started. �N.p.o. postmidnight for potential catheterization tomorrow as per cardiology.
Assessment/plan:
NSTEMI
- Appreciate cardiology input, status post cardiac catheterization with PCI and stent placement on 12/02
- Status post heparin drip
- Continue aspirin, Brilinta
- Follow-up with usual sizer machine, Dr. Salvador Rojas in office
Left groin pseudoaneurysm
- Status post thrombin injection in IR 12/03/2024
- Repeat ultrasound this a.m. shows complete thrombosis
Renal Transplant
-Continue fludrocortisone, mycophenolate and tacrolimus
-Nephrology consulted as patient received contrast for his cardiac catheterization
-Creatinine remains normal
Moderate / Severe Aortic Stenosis
-Patient reports his Lead Laying And Gluing Machine Operator as Luis Angel is watching his valve with plans to undergo TAVR evaluation in the future
-12/02 Echo shows severe
Hyperlipidemia
-LDL at goal at 56
-Continue atorvastatin
Hyperparathyroidism
-Continue cinacalcet
Anxiety / Bipolar Disorder
-Continue clonazepam, lurasidone, and lamotrigine
Peripheral Neuropathy
-Continue pregabalin
Lactose intolerance
-Low lactose diet
Constipation
- Status post enema this morning, and magnesium citrate with hard stool pellets
- Acute obstruction series shows moderate to large fecal burden throughout the colon, negative for obstruction
- Repeat milk of molasses enema today
Weakness
-Resides at [facility]
-PT rec HH vs SNF
Familial tremor syndrome
-Monitor
DVT proph: Subcu Lovenox
Code Status: Full Code
Total time spent to see the patient on the floor, examine the patient, review data and lab results, discuss treatment plan with patient, nursing staff around 50 minutes.
Physical Exam
General: No acute distress
HEENT: Normocephalic, Atraumatic, EOMI, MMM
Respiratory: Clear to Auscultation bilaterally
Cardiac: Normal S1/S2, Regular Rate and Rhythm, +murmur
GI: Soft, Nontender, Nondistended, Normal Bowel Sounds
: Left groin ecchymosis noted
Extremities: No Clubbing, Cyanosis, or Edema
Neuro: Hand tremor noted
Anticipated Discharge: Within 24 hours
Subjective/Interval History
-
Date of Service: December 05, 2024
Patient's left groin pain has improved. Denies chest pain, denies shortness of breath.
Patient is concerned about constipation. Dulcolax suppository did not help yesterday.
He had an enema this morning, which yielded hard stool pellets.
Objective Data
-
Labs:
Laboratory Results
12/05/24
05:14
WBC 7.9
Hgb 11.4 L
Hct 34.3 L
Plt Count 170
Sodium 140
Potassium 4.3
Chloride 108 H
Carbon Dioxide 24
BUN 20
Creatinine 1.2
Glucose 97
Calcium 8.3 L
Vital Signs:
Vital Signs
Temp Pulse Resp BP Pulse Ox
98.6 F 66 18 135/69 98
12/05/24 05:05 12/05/24 05:00 12/05/24 04:53 12/05/24 04:51 12/05/24 04:53
I&O
12/04/24 12/05/24 12/06/24
06:59 06:59 06:59
Intake Total 240 / 240 300 / 300
Output Total 1300 / 1300 900 / 900
Balance -1060 / -1060 -600 / -600
--- NOTE | 2024-12-05 16:42 | PTCARENOTE ---
Enema administered. Pt assisted to bedside commode and had large soft formed BM. Pt reports adequate relief and that he feels 'back to normal.' Dr. Polanco aware.
[2024-12-05] MEDS: LIPITOR 20 MG PO (17:11)
[2024-12-05] MEDS: LYRICA 50 MG PO (17:11)
[2024-12-05 18:51] VITALS: BP 140/56
[2024-12-05 22:23] VITALS: BP 129/59
[2024-12-05] MEDS: LAMICTAL 400 MG PO (22:25)
[2024-12-05] MEDS: KLONOPIN 0.5 MG PO (22:25)
[2024-12-05] MEDS: MELATONIN 3 MG PO (22:25)
--- NOTE | 2024-12-06 00:51 | PTCARENOTE ---
Assumed care of patient at change of shift. Pt AAOx3 w/ baseline essential tremors. Tele monitor shows NSR, HR in the 60-70's at rest. BP stable. Denies any pain or SOB. Left groin site WILFRID and ecchymotic. Doppler b/l pedal pulses. Aware of POC,
call correia within reach.
[2024-12-06 04:19] VITALS: BP 131/67
[2024-12-06 04:20] VITALS: BMI 26.4
[2024-12-06 06:56] VITALS: BP 145/71
[2024-12-06 08:58] VITALS: BP 139/58
[2024-12-06 09:10] VITALS: BP 139/58; PULSE 70; O2SAT 97
[2024-12-06] MEDS: MYFORTIC DELAYED REL. 540 MG PO (09:11)
[2024-12-06] MEDS: ASPIR LOW (ENTERIC COATED) 81 MG PO (09:11)
[2024-12-06] MEDS: LATUDA 60 MG PO (09:11)
[2024-12-06] MEDS: FLORINEF 0.1 MG PO (09:11)
[2024-12-06] MEDS: SENSIPAR 90 MG PO (09:11)
[2024-12-06] MEDS: VITAMIN D3 (cholecalciferol) 50 MCG PO (09:11)
[2024-12-06] MEDS: BRILINTA 90 MG PO (09:11)
[2024-12-06] MEDS: MAGNESIUM OXIDE 400 MG PO (09:11)
[2024-12-06] MEDS: PEPCID 20 MG PO (09:11)
--- NOTE | 2024-12-06 09:52 | W.PN.NEPH.PH ---
Today's Communication / Plan
-
Stable for discharge from nephrology standpoint
Assessment/Plan
-
Assessment
NSTEMI
Living unrelated renal transplant right lower quadrant
Severe aortic stenosis
Bipolar disorder
hypertension
Plan
GFR stable with creatinine of 1.2 status post PCI
Follow BMP
Checked tacrolimus level tomorrow he says that his dose was changed about 3 weeks ago with an increase from 1 mg in the morning and 0.5 mg at night to 1 mg twice daily=13 (but sample was obtained at 3:26 AM)
Creatinine remained stable post cath 24 hours
Stable for discharge and follow-up tacrolimus trough level to be obtained next week and forwarded to nephrology
-
-
Date of Service: December 06, 2024
CC / HPI / ROS
-
Chief Complaint:
NSTEMI
History of Present Illness:
Renal transplant NSTEMI status post PCI patient
Creatinine stable at 1 point
Review of Systems:
Nonoliguric
Tremors no
No chest pain or shortness of breath
Labs
-
Labs:
WBC 7.9 10^3/uL (4.8-10.8) 12/05/24 05:14
RBC 4.01 10^6/uL (4.70-6.10) L 12/05/24 05:14
Hgb 11.4 g/dL (13.0-18.0) L 12/05/24 05:14
Hct 34.3 % (39.0-52.0) L 12/05/24 05:14
Plt Count 170 10^3/uL (130-400) 12/05/24 05:14
Sodium 140 mmol/L (135-145) 12/05/24 05:14
Potassium 4.3 mmol/L (3.5-5.1) 12/05/24 05:14
Chloride 108 mmol/L (98-107) H 12/05/24 05:14
Carbon Dioxide 24 mmol/L (22-30) 12/05/24 05:14
BUN 20 mg/dl (9-20) 12/05/24 05:14
Creatinine 1.2 mg/dL (0.7-1.3) 12/05/24 05:14
eGFR > 60.00 12/05/24 05:14
Glucose 97 mg/dl (70-99) 12/05/24 05:14
Calcium 8.3 mg/dl (8.4-10.2) L 12/05/24 05:14
Albumin 3.9 g/dl (3.5-5.0) 12/02/24 05:22
Physical Exam
-
Vital Signs:
Vital Signs
Temp Pulse Resp BP Pulse Ox
98.0 F 74 18 131/67 99
12/06/24 06:58 12/06/24 05:00 12/06/24 06:58 12/06/24 04:19 12/06/24 06:58
Respiratory:: Bilateral: CTA
Lung Excursion:: Normal
Abdomen:: Soft
Bowel Sounds:: Normal
Extremity Edema:: None: Bilateral:
--- NOTE | 2024-12-06 11:00 | W.PN.HOSP.TC ---
Today's Communication/Plan
-
Discharge today
Assessment / Plan
Assessment / Plan
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
peripheral neuropathy, presenting with chest discomfort that occurred last week and today. �Described as pressure sharp stabbing with breathing. EKG shows nonspecific ST changes. �Troponin 0.84.
Patient with NSTEMI. �Trend troponins. �Check echocardiogram. �Check A1c and lipid panel. �As needed nitroglycerin. �Continue aspirin and Brilinta. �Heparin drip started. �N.p.o. postmidnight for potential catheterization tomorrow as per cardiology.
Assessment/plan:
NSTEMI
- Appreciate cardiology input, status post cardiac catheterization with PCI and stent placement on 12/02
- Status post heparin drip
- Continue aspirin, Brilinta
- Follow-up with usual taker off hemp fiber, Dr. Salvador Rojas in office
Left groin pseudoaneurysm
- Status post thrombin injection in IR 12/03/2024
- Repeat ultrasound 12/05 showed complete thrombosis
Renal Transplant
-Continue fludrocortisone, mycophenolate and tacrolimus
-Nephrology consulted as patient received contrast for his cardiac catheterization
-Creatinine remains normal
Moderate / Severe Aortic Stenosis
-Patient reports his Credit Analysis Manager as Luis Angel is watching his valve with plans to undergo TAVR evaluation in the future
-12/02 Echo shows severe
Hyperlipidemia
-LDL at goal at 56
-Continue atorvastatin
Hyperparathyroidism
-Continue cinacalcet
Anxiety / Bipolar Disorder
-Continue clonazepam, lurasidone, and lamotrigine
Peripheral Neuropathy
-Continue pregabalin
Lactose intolerance
-Low lactose diet
Constipation
- Acute obstruction series shows moderate to large fecal burden throughout the colon, negative for obstruction
- He feels better status post 2 enemas and magnesium citrate
- Recommend that he takes magnesium citrate 150 mg daily, can increase to 300 mg daily as needed
Weakness
-Resides at [facility]
-PT rec HH vs SNF, patient is discharged to [facility]
Familial tremor syndrome
-Monitor
DVT proph: Subcu Lovenox
Code Status: Full Code
Physical Exam
General: No acute distress
HEENT: Normocephalic, Atraumatic, EOMI, MMM
Respiratory: Clear to Auscultation bilaterally
Cardiac: Normal S1/S2, Regular Rate and Rhythm, +murmur
GI: Soft, Nontender, Nondistended, Normal Bowel Sounds
: Left groin ecchymosis noted
Extremities: No Clubbing, Cyanosis, or Edema
Neuro: Hand tremor noted
Anticipated Discharge: Today
Subjective/Interval History
-
Date of Service: December 06, 2024
Patient reports feeling better after his 2 enemas and magnesium citrate. Denies chest pain, denies shortness of breath. No fever, no vomiting.
Objective Data
-
Vital Signs:
Vital Signs
Temp Pulse Resp BP Pulse Ox
98.0 F 71 18 139/58 99
12/06/24 06:58 12/06/24 09:00 12/06/24 06:58 12/06/24 08:58 12/06/24 06:58
I&O
12/05/24 12/06/24 12/07/24
06:59 06:59 06:59
Intake Total 300 / 300 600 / 600
Output Total 900 / 900 950 / 950
Balance -600 / -600 -350 / -350
[2024-12-06] MEDS: PROGRAF 1 MG PO (11:05)
--- NOTE | 2024-12-06 11:10 | W.DCSUMMARY ---
Discharge Summary
Discharge Data
Date of Admission: 12/01/24
Date of Discharge: 12/06/24
-
Pending Results: No
Hospital Course
Discharge diagnosis:
Acute myocardial infarction
Severe aortic stenosis
Left groin pseudoaneurysm
Constipation
History of renal transplant
Hyperlipidemia
Hyperparathyroidism
Anxiety/bipolar disorder
Peripheral neuropathy
Lactose intolerance
Weakness
Familial tremor syndrome
Consults: Cardiology, nephrology
Procedures:
12/02/2024 cardiac catheterization
CONCLUSIONS
1. Early restenosis/stent failure of OM1 stent with intravascular ultrasound evidence of poor stent apposition and calcification of the OM1. Shockwave lithotripsy was performed followed by placement of a 3.5 x 15 mm Anthony stent that was implanted
at nominal pressures and postdilated to high pressures with a 3.75 mm noncompliant balloon
RECOMMENDATIONS
1. Continue dual antiplatelet therapy and secondary risk factor modification
2. Follow-up with Dr. Rojas as scheduled
Hospital course:
69-year-old male with a past medical history of renal transplant, aortic stenosis, CAD, familial tremor syndrome, weakness, and anxiety/depression was admitted for non-ST elevation myocardial infarction. Patient was treated with an IV heparin drip,
and continued on aspirin, Brilinta. He was seen in conjunction with cardiology, and underwent cardiac catheterization with stent placement on 12/02/2024. His atorvastatin was increased to 20 mg every afternoon, and he can continue his aspirin and
Brilinta.
Patient's hospital course was complicated by a left groin pseudoaneurysm. He received thrombin injection. Repeat ultrasound showed complete thrombosis.
Patient had constipation. He was treated with enemas and magnesium citrate. His constipation resolved. He states that regular laxatives like MiraLAX and Dulcolax do not work for him. It is recommended that he takes magnesium citrate 150 mg p.o.
daily, and increase to 300 mg p.o. daily as needed. He reports understanding.
He is medically stable for discharge to short-term rehab. He needs to follow-up with his PCP in 1 week, and his usual umbrella finisher as instructed.
Disposition: Short-term rehab
Discharge planning: Required 40 minutes
Discharge Plan
-
Patient Disposition: Shelter/SNF
Discharge Diagnosis/Procedures: Angioplasty and stent to Obtuse Marginal artery, myocardial infarction, aortic stenosis, constipation
Condition: Good
Diet: Low Fat
Activity: As tolerated
Driving Restrictions: As prior to admission
Bathing Restrictions: OK to Shower
Other Services: Cardiac Rehab
Activity Restrictions/Additional Instructions:
Please take magnesium citrate 150 mL daily for your constipation.
Increase to 300 mL as needed for hard stools.
Follow-up with your PCP in 1 week, and your usual umbrella finisher as scheduled.
Stand Alone Forms: DC Instructions- Cath/EP Lab
Referrals:
Salvador Rojas MD [Non-Admitting Privileges, Surgical] - 12/11/24
Referral Note: Keep your appointment with Dr. Rojas's office on , 12/11/2024. They know that you were here at the hospital and were CCed on records.
Francisco Kearns MD [Family Provider, Internal Medicine] - in one week
Additional Discharge Medication Instructions: - Your dose of atorvastatin was increased to 20 mg daily
- Continue your usual doses of aspirin and Brilinta 90 mg twice daily
Prescriptions:
New
magnesium citrate [Citrate of Magnesia] Solution
150 ml PO DAILY Qty: 2960 0RF
atorvastatin 20 mg Tablet
20 mg PO QPM Qty: 30 0RF
Continued
acetaminophen [Tylenol] 325 mg Tablet
650 mg PO Q4HPRN PRN (Reason: MILD PAIN)
lamotrigine 200 mg Tablet
400 mg PO HS
clonazepam [Klonopin] 0.5 mg Tablet
0.5 mg PO HS
melatonin 3 mg Tablet
3 mg PO HS
aspirin 81 mg Tablet,Delayed Release (Dr/Ec)
81 mg PO DAILY
famotidine [Pepcid] 20 mg Tablet
20 mg PO DAILY
fludrocortisone 0.1 mg Tablet
0.1 mg PO DAILY
tacrolimus [Prograf] 0.5 mg Capsule
1.5 mg PO Q12H
mycophenolate sodium [Myfortic] 180 mg Tablet,Delayed Release (Dr/Ec)
540 mg PO BID
cinacalcet 90 mg Tablet
90 mg PO BID
pregabalin [Lyrica] 50 mg Capsule
50 mg PO QPM
cholecalciferol (vitamin D3) [Vitamin D3] 50 mcg (2,000 unit) Tablet
50 mcg PO DAILY
ticagrelor [Brilinta] 90 mg Tablet
90 mg PO BID
lurasidone [Latuda] 60 mg Tablet
60 mg PO DAILY
magnesium oxide 400 mg magnesium Tablet
400 mg PO BID
Discontinued
atorvastatin [Lipitor] 10 mg Tablet
10 mg PO HS
Discharge Orders:
Discharge Patient (As Directed); Ordered 12/06/24
Ordered By: Tex Polanco
Care Plan Goals
Care Plan Goals:
Problem: Readiness for enhanced knowledge related to diagnosis and treatment plan
Goal: Understand your diagnosis and treatment plan needs, including medications if applicable.
Instructions: Know your diagnosis, underlying causes and treatment plan options, including medications if applicable. Consult with your health care team to learn about your diagnosis and treatment plan, including medications if applicable.
Discharge Date and Time
Discharge Date/Time: 12/06/24 13:53
Print Language: LATVIAN
== END 2024-12-06 13:53 | DRG 323 ==
LOC: IVU 18:58
PROVIDERS: Internal Medicine Interventional Cardiology; Nurse Practitioner; Physician Assistant Medical; Radiology Vascular & Interventional Radiology; ADMITTING PHYSICIAN Hospitalist; ATTENDING PHYSICIAN Family Medicine; CONSULT PHYSICIAN Specialist; EMERGENCY PHYSICIAN Emergency Medicine; FAMILY PHYSICIAN Internal Medicine Geriatric Medicine; OTHER PHYSICIAN Internal Medicine Cardiovascular Disease
PROC: 027034Z Dilation of Coronary Artery, One Artery with Drug-eluting Intraluminal Device, Percutaneous Approach (ICD-10-PCS; 2024-12-02)
PROC: B2111ZZ Fluoroscopy of Multiple Coronary Arteries using Low Osmolar Contrast (ICD-10-PCS; 2024-12-02)
PROC: B240ZZ3 Ultrasonography of Single Coronary Artery, Intravascular (ICD-10-PCS; 2024-12-02)
PROC: 02F03ZZ Fragmentation in Coronary Artery, One Artery, Percutaneous Approach (ICD-10-PCS; 2024-12-02)
PROC: 4A023N7 Measurement of Cardiac Sampling and Pressure, Left Heart, Percutaneous Approach (ICD-10-PCS; 2024-12-02)
PROC: 3E053GC Introduction of Other Therapeutic Substance into Peripheral Artery, Percutaneous Approach (ICD-10-PCS; 2024-12-03)
DX: T82.855A Stenosis of coronary artery stent, initial encounter (principal); I21.4 Non-ST elevation (NSTEMI) myocardial infarction; L76.32 Postprocedural hematoma of skin and subcutaneous tissue following other procedure; Z94.0 Kidney transplant status; I25.10 Atherosclerotic heart disease of native coronary artery without angina pectoris; I72.4 Aneurysm of artery of lower extremity; I08.0 Rheumatic disorders of both mitral and aortic valves; E78.00 Pure hypercholesterolemia, unspecified; F31.9 Bipolar disorder, unspecified; E21.3 Hyperparathyroidism, unspecified; G25.0 Essential tremor; I10 Essential (primary) hypertension; Y83.8 Other surgical procedures as the cause of abnormal reaction of the patient, or of later complication, without mention of misadventure at the time of the procedure; K59.00 Constipation, unspecified; Y83.1 Surgical operation with implant of artificial internal device as the cause of abnormal reaction of the patient, or of later complication, without mention of misadventure at the time of the procedure; E73.9 Lactose intolerance, unspecified; G62.9 Polyneuropathy, unspecified; K21.9 Gastro-esophageal reflux disease without esophagitis; Z86.73 Personal history of transient ischemic attack (TIA), and cerebral infarction without residual deficits; Z79.82 Long term (current) use of aspirin
CPT/HCPCS: 36002; 71045; 74022; 80048; 80053; 80061; 80076; 80197; 83036; 83735; 84132; 84443; 84484; 85025; 85027; 85347; 85610; 85730; 86850; 86900; 86901; 87070; 92972; 92978; 93005; 93306; 93456; 93926; 97116; 97163; 99291; C1725; C1753; C1760; C1761; C1769; C1874; C1894; C9600; Q9967

== ENCOUNTER 2024-12-08 06:18 | Inpatient (IN) | payer MEDICARE, OTHER, SELFPAY ==
[2024-12-08] VITALS (13 sets, daily range): BP systolic 90–138; BP diastolic 50–72; BMI 26.9; BMI 26.3
[2024-12-08 02:29] LABS: Hematocrit 35.9 % (39.0-52.0); Hemoglobin 11.9 g/dL (13.0-18.0); Mean Corp Hgb Conc. 33.1 g/dL (33.0-37.0); Mean Corpuscular Volume 84.9 fL (80.0-94.0); Nucleated Red Blood Cells % 0 % (-); Platelet Count 215 10^3/uL (130-400); Red Cell Dist. Width 13.6 % (11.5-14.5)
--- NOTE | 2024-12-08 02:44 | ED.GENMED ---
History of Present Illness
General
Chief Complaint: Chest Pain
Source: patient, ambulance crew (EMS report patient with chest pain, EKG concerning for STEMI. Patient reportedly had history of STEMI 1 week ago status post PTCA with stent.), [facility] and previous hospital records
Exam Limitations: none
Time Seen by Provider: 12/08/24 02:17
Nursing documentation reviewed up to this point in time: agreed with
History of Present Illness
History of Present Illness:
This is a 69-year-old gentleman who has history of CAD status post stenting in August. He also has known history of severe aortic stenosis, hypertension, hyperlipidemia, kidney transplant secondary to lithium toxicity, bipolar disorder,
hyperparathyroidism, essential tremor, peripheral neuropathy. He is a chronic resident of a local [facility].
Hospitalized 1 week ago with complaints of chest pain, non-STEMI. Cardiac catheterization December 02 showed early restenosis/stent failure of first obtuse marginal stent. Received shockwave lithotripsy and stent placement. Post cath developed a
pseudoaneurysm left groin received thrombin injection. Repeat ultrasound showed complete thrombosis. He was also noted to have constipation treated with enemas and magnesium citrate. He was [facility] to the [facility] on December [facility].
He continues on dual antiplatelet therapy.
He presents via EMS with complaints of substernal chest pain, pressure that began around 7 PM last night, intermittent but persistent since 7 PM. No associated symptoms.
He was given 324 mg chewable aspirin prehospital as well as 2 sublingual nitroglycerin with moderate but not complete relief of chest pain. He states chest pain felt similar to chest pain he experienced with non-STEMI 1 week ago.
Past History
Past History
ED Past Medical History: CAD, CVA, GERD, HTN, Hypercholesterolemia, SD, Renal failure (Related to lithium overdose), Valvular disease (Severe aortic stenosis), Psychiatric and Other (Familial tremor)
ED Past Surgical History: Cardiac (PTCA with stent August 2024, repeat stent to first obtuse marginal December 02, 2024), Tonsilectomy and Other (Renal transplant)
Social History
Tobacco: Non-smoker
Alcohol: None
Drug: None
Personal:
Living: [facility]
Employment: Retired
Family History
Family History: Other (Noncontributory)
Phy Exam
Physical Exam
Physical Exam:
GENERAL: 69-year-old gentleman appears his stated age, awake and alert, pleasant, appears in no acute distress.
EYE: anicteric
NECK: Supple, nontender, no meningismus, no significant adenopathy.
ENT: oral mucosa is moist. No rhinorrhea.
CARDIAC: Regular rate and rhythm. 4/6 holosystolic murmur left sternal border.
LUNGS: Clear breath sounds bilaterally, no acute respiratory distress, no wheezes/rales/rhonchi
ABDOMEN: Soft, nondistended, without focal tenderness, no r/g, no cvat. normoactive BS.
NEUROLOGICAL: Alert and oriented x3, no focal neuro deficits. Moderate resting tremor right upper extremity.
SKIN: Warm and dry, normal color, skin intact. No rash.
MUSCULOSKELETAL: No C/C/E. peripheral pulses are full and equal b/l. No palpable tenderness.
PSYCH: Normal and appropriate interaction.
Scores
Heart Score for Chest Pain Patients
STEMI patient?: No
History: Moderately Suspicious
ECG: Nonspecific Repolarization
Age: >/= 65 years
Risk Factors: >/= 3 Risk Factors or History of CAD
Troponin: >/= 3 x Normal Limit
Heart Score for Chest Pain Patients: 8
Heart Score Risk: 72.7 % MACE over next 6 weeks
Course
Orders/Labs/Results
Orders:
Orders
12/08/24 02:20
ECG [Electrocardiogram (*1)] Urgent
Reason for Study: Chest Pain
12/08/24 02:21
EKG- Treatment ONCE
12/08/24 02:22
Complete Blood Count/With Diff Urgent
Comprehensive Metabolic Panel Urgent
Troponin I Urgent
12/08/24 03:16
Electrocardiogram (*1) Urgent
Reason for Study: Chest Pain
EKG- Treatment ONCE
12/08/24 03:19
Heparin 4,000 units IV NOW STA
Nursing to Place Non Medication Order As Directed
Physician Order: PTT 6 hours after initial start of Heparin infusion
Above order entered?: Yes
12/08/24 03:24
PTT Urgent
Comment: Obtain baseline before beginning heparin infusion if not already collected
12/08/24 03:30
Heparin 22912 Units/250 ml 25,000 units in 250 ml IV PER PROTOCOL
Weight to be used for heparin protocol in kilograms (kg):: 85.1
Protocol:: Cardiac Tx/Acute Coronary
PTT Goal Range to be used:: PTT 73 to 111 seconds
Order type:: Initial
INITIAL Infusion Dose (UNITS/KG/hr) & then follow protocol:: 12 units/kg/hr
Infusion Dose in UNITS/hr & then follow protocol (UNITS/hr):: 1,000
INFUSION RATE in mL/hr & then follow protocol (mL/hr):: 10
PTT less than or equal to 64 seconds:: Increase rate by 200 units/hr (+ 2 mL/hr)
PTT 64.1 to 72.9 seconds:: Increase rate by 100 units/hr (+ 1 mL/hr)
PTT 73 to 111 seconds:: Target Range. No change in rate.
PTT 111.1 to 130.9 seconds:: Decrease rate by 100 units/hr (- 1 mL/hr)
PTT 131 to 199.9 seconds:: HOLD for 1 hr. Then decrease rate by 200 units/hr (- 2 mL/hr)
PTT greater than or equal to 200 seconds:: HOLD for 2 hrs & Notify Provider. Then decrease by 200 units/hr (-
2 mL/hr)
Lab follow-up:: Each change, PTT q6h until 2 consecutive are therapeutic. Then PTT
daily.
12/08/24 04:19
Troponin I Urgent
12/08/24 10:00
PTT IN AM
Comment: heparin protocol
Abnormal Lab Results
12/08/24 12/08/24
02:22 04:19
RBC 4.23 L 10^6/uL
(4.70-6.10)
Hgb 11.9 L g/dL
(13.0-18.0)
Hct 35.9 L %
(39.0-52.0)
Abs Immat Gran (auto) 0.1 H 10^3/uL
(0-0.05)
Absolute Monos (auto) 1.6 H 10^3/uL
(0.1-0.6)
Immature Gran % 0.7 H %
(0-0.5)
Monocytes % 15.0 H %
(1.7-9.3)
BUN 29 H mg/dl
(9-20)
Glucose 105 H mg/dl
(70-99)
Troponin I 0.400 H* ng/ml 0.369 H* ng/ml
12/08/24 02:22
12/08/24 02:22
Vital Signs
Initial and Last Documented VS:
Initial Vital Signs
BP Pulse Ox
98/50 99
12/08/24 02:18 12/08/24 02:18
Last Documented Vital Signs
Temp Pulse Resp BP Pulse Ox
98.4 F 70 18 126/61 98
12/08/24 02:19 12/08/24 05:00 12/08/24 05:00 12/08/24 05:00 12/08/24 05:00
MDM/Problems Addressed
Differential Diagnosis Includes:
Concern for recurrent ACS/non-STEMI.
Maylin syndrome
GERD
Musculoskeletal chest pain
Progression of aortic stenosis
MDM/Problems Addressed:
Acute chest pain
hx of severe
Prehospital EKG shows questionable minimal ST elevation inferiorly without reciprocal changes. Initial report from EMS stated patient had history of STEMI 1 week ago.
Upon patient arrival and upon review of records patient noted to have elevated enzymes without evidence of STEMI�thus suffered non-STEMI.
Moderate improvement in chest pain but not completely chest pain-free and initial EKG upon arrival to the ED shows questionable minimal ST elevation inferiorly but overall similar to previous EKG December 03. No evidence of STEMI.
Blood pressure somewhat soft upon arrival.
Will initiate IV fluids, will check labs.
If chest pain persists, worsens will plan for IV heparin and will continue to trend troponin.
Chronic conditions affecting care: CAD, Kidney disease and Other (Severe aortic stenosis)
Acute Exacerbation and/or Progression of Chronic Illness: CAD
*Pulse Oximetry
SaO2: 99
Oxygen Mode of Delivery: Room air
Patient hypoxic: no
*EKG
Interpreted by ED Provider?: Yes
Interpretation: abnormal
Comparison EKG: no changes (Unchanged from previous December 03, 2024)
Rate: normal
Rhythm: sinus
Ophiem: normal axis
Interval: normal interval
QRS Pattern: normal QRS
Ischemia: non-specific ST changes
*Veneer Jointer Operator Interpretation
Rate: normal
Interpretation: normal
Rhythm: sinus
*Critical Care Note
Total Time (30-74mins, 75-104mins- exclusive of procedures): 30
comment:
Critical care statement: A total of 30 minutes of critical care time was provided for this patient. This includes management of unstable vital signs, evaluation of the patient at bedside, reviewing the patient's pertinent medical records, discussion
with consultants, review of old EKGs and review of pertinent medical records. This time with separate from time utilized to perform the aforementioned documented procedures
Update Note
Update Note:
05:30
Patient is pain-free and comfortable after IV heparin initiated.
EKG remains unchanged.
Initial troponin 0.4. This has trended down from previous troponin 1 week ago at 0.633 December 02.
Repeat troponin trending down 0.369.
Due to history of early restenosis, known CAD as well as known AAS patient is certainly at risk for recurrent CAD thus we will continue IV heparin, will admit to hospital service and will plan for cardiology consult.
ED Attending Note
-
Portions of this chart may have been created with voice recognition software.� Occasional wrong word or��sound alike� substitutions may have occurred due to the inherent limitations of voice recognition software.
Discharge Plan
Departure
Patient Disposition: Admit
Date of Disposition: 12/08/24
Time of Disposition: 05:43
Admit to: Telemetry
Admit to doctor: Mike
Presentation/result/management discussed w/ accepting MD/DO: Hospitalist
Discharge Problem:
Acute chest pain, Concern for unstable angina
Prescriptions:
No Action
acetaminophen [Tylenol] 325 mg Tablet
650 mg PO Q4HPRN PRN (Reason: MILD PAIN)
lamotrigine 200 mg Tablet
400 mg PO HS
clonazepam [Klonopin] 0.5 mg Tablet
0.5 mg PO HS
melatonin 3 mg Tablet
3 mg PO HS
aspirin 81 mg Tablet,Delayed Release (Dr/Ec)
81 mg PO DAILY
famotidine [Pepcid] 20 mg Tablet
20 mg PO DAILY
fludrocortisone 0.1 mg Tablet
0.1 mg PO DAILY
tacrolimus [Prograf] 0.5 mg Capsule
1.5 mg PO Q12H
mycophenolate sodium [Myfortic] 180 mg Tablet,Delayed Release (Dr/Ec)
540 mg PO BID
cinacalcet 90 mg Tablet
90 mg PO BID
pregabalin [Lyrica] 50 mg Capsule
50 mg PO QPM
cholecalciferol (vitamin D3) [Vitamin D3] 50 mcg (2,000 unit) Tablet
50 mcg PO DAILY
ticagrelor [Brilinta] 90 mg Tablet
90 mg PO BID
lurasidone [Latuda] 60 mg Tablet
60 mg PO DAILY
magnesium oxide 400 mg magnesium Tablet
400 mg PO BID
magnesium citrate [Citrate of Magnesia] Solution
150 ml PO DAILY Qty: 2960 0RF
atorvastatin 20 mg Tablet
20 mg PO QPM Qty: 30 0RF
Interventions
Interventions:
*Risk Screen - Suicide Last Done: 12/08/24 02:17
*General Assessment Last Done: 12/08/24 02:36
*Neglect/Abuse Screening Last Done: 12/08/24 02:17
*ED- Fall Risk Assessment Last Done: 12/08/24 02:36
*ED COVID-19 Vaccine History Last Done: 12/08/24 02:36
ED- Cardiac Assessment Last Done: 12/08/24 02:48
Discharge Date and Time
Print Language: GHANAIAN
[2024-12-08 02:50] LABS: ALT (SGPT) 20 U/L (0-50); AST (SGOT) 23 U/L (17-59); Albumin 4.3 g/dl (3.5-5.0); Alkaline Phosphatase 118 U/L (38-126); Blood Urea Nitrogen 29 mg/dl (9-20); Calcium 8.7 mg/dl (8.4-10.2); Carbon Dioxide 27 mmol/L (22-30); Chloride 105 mmol/L (98-107); Estimated Creatinine Clearance 55 ml/min; Glucose 105 mg/dl (70-99); Potassium 4.3 mmol/L (3.5-5.1); Sodium 140 mmol/L (135-145); Total Protein 6.4 g/dl (6.3-8.2); eGFR 59.10
[2024-12-08 03:05] LABS: Troponin I 0.400 ng/ml
[2024-12-08 03:47] LABS: APTT 33.6 Sec (23.4-35.0)
[2024-12-08] MEDS: HEPARIN 4000 UNITS IV (03:55)
[2024-12-08] MEDS: HEPARIN 25000 UNITS/250 ML IV (03:58)
[2024-12-08 05:20] LABS: Troponin I 0.369 ng/ml
--- NOTE | 2024-12-08 05:59 | HPS.HSE ---
Family Physician
-
Family Physician: INTERVIEWE UNKNOWN - PT NOT
Chief Complaint
-
Chest pain
History of Present Illness
This is a 69-year-old male with past medical history significant for severe aortic stenosis with valve area of 0.71, CAD status post stenting, end-stage renal disease status post kidney transplant, bipolar disorder who presents to the emergency
department with intermittent chest pain since 7 PM yesterday.
Patient has a history of CAD who had a PCI with stenting of the LAD which was marginal branch at [facility] in August 2024. He presented to [place] on December 02 with substernal chest pressure and had NSTEMI at that time as well. He had
continued low-grade chest tightness that improved with nitroglycerin and was referred for emergent coronary angiography. He had shockwave lithotripsy and stenting to 1 (Dr. Porter in-stent restenosis from prior stenting in 2024) with good results.
Procedure complicated by post cath pseudoaneurysm of the left groin status post thrombin injection.
He was discharged December 06 (yesterday).
He now reports substernal chest pain, pressure that began around 7 PM last night, intermittent but persistent since 7 PM. 3 /10, left-sided and with no radiation, no nausea vomiting or diaphoresis. Not associated with any physical activity or
positioning. Slightly intensified with deep inspiration. He denies any shortness of breath. He was given aspirin 324 by EMS prehospital as well as 2 sublingual nitroglycerin with moderate relief of his chest pain.
In the emergency department he was afebrile, blood pressure was 126/61 with a pulse rate of 70 and he was satting 98% on room air.
ECG shows a normal sinus rhythm at a rate of 74. His initial troponin was 0.4, repeat troponin was 0.369. His CBC was unremarkable, his electrolytes BUN and creatinine were normal.
Medical History
Past Medical History
Past Medical History: Reports Other
Additional Past Medical History:
Coronary Artery Disease s/p Stent x 2
Moderate / Severe Aortic Stenosis
Essential Hypertension
Hyperlipidemia
Renal Transplant
Hyperparathyroidism
Anxiety / Bipolar Disorder
Essential Tremor
Peripheral Neuropathy
Past Surgical History: Reports Other
Additional Past Surgical History:
Kidney Transplant
Cardiac Stent
Social History
Tobacco: Non-smoker
Alcohol: None
Living: Alf
Family History
Family History: Not pertinent
Allergies / Home Medications
Allergies reflects when Allergies were last updated in [employer].
Home Medications with original date entered in [employer]
Allergy/Medication List:
Allergies
Allergy/AdvReac Type Severity Reaction Status Date / Time
No Known Allergies Allergy Unverified 12/01/24 17:45
Home Medications
acetaminophen 325 mg tablet (Tylenol) 650 mg PO Q4HPRN PRN MILD PAIN 12/01/24
aspirin 81 mg tablet,delayed release 81 mg PO DAILY 12/01/24
atorvastatin 10 mg tablet (Lipitor) 10 mg PO HS 12/01/24
cholecalciferol (vitamin D3) 50 mcg (2,000 unit) tablet (Vitamin D3) 50 mcg PO DAILY 12/01/24
cinacalcet 90 mg tablet 90 mg PO BID 12/01/24
clonazepam 0.5 mg tablet (Klonopin) 0.5 mg PO HS 12/01/24
famotidine 20 mg tablet (Pepcid) 20 mg PO DAILY 12/01/24
fludrocortisone 0.1 mg tablet 0.1 mg PO DAILY 12/01/24
lamotrigine 200 mg tablet 400 mg PO HS 12/01/24
lurasidone 60 mg tablet (Latuda) 60 mg PO DAILY 12/01/24
magnesium oxide 400 mg PO BID 12/01/24
melatonin 3 mg tablet 3 mg PO HS 12/01/24
mycophenolate sodium 180 mg tablet,delayed release (Myfortic) 540 mg PO BID 12/01/24
pregabalin 50 mg capsule (Lyrica) 50 mg PO QPM 12/01/24
tacrolimus 0.5 mg capsule, immediate-release (Prograf) 1.5 mg PO Q12H 12/01/24
ticagrelor 90 mg tablet (Brilinta) 90 mg PO BID 12/01/24
Review of Systems
-
A 12 point ROS was completed and negative except as noted: Yes
Constitutional: Denies Fever
Respiratory: Denies Cough or Trouble Breathing
Cardiac: Reports Chest Pain
Abdomen/GI: Reports No Symptoms
: Reports No Symptoms
Musculoskeletal: Reports No Symptoms
Skin: Reports No Symptoms
Neurological: Reports No Symptoms
Endocrine: Reports No Symptoms
Hematologic/Lymphatic: Reports No Symptoms
Psych: Reports No Symptoms
Physical Exam
Vital Signs
Vital Signs
Temp Pulse Resp BP Pulse Ox
98.4 F 70 18 126/61 98
12/08/24 02:19 12/08/24 05:00 12/08/24 05:00 12/08/24 05:00 12/08/24 05:00
Physical Exam
General: Comfortable and Conversant
HEENT: Anicteric and Moist mucous membranes
Respiratory: Clear and Non Labored Respirations
Cardiac: S1/S2 and Regular Rhythm
GI: Soft and Non Tender
Rectal: Deferred by Provider
Musculoskeletal: No Clubbing, No Cyanosis and No Edema
Skin: Warm and Dry
Neuro: Awake, Alert, Oriented, Nonfocal/grossly intact and Tremors
Psych: Calm
Laboratory Results
-
12/08/24 02:22
12/08/24 02:22
Laboratory Results
APTT 33.6 Sec (23.4-35.0) 12/08/24 03:24
Total Bilirubin 0.8 mg/dl (0.2-1.3) 12/08/24 02:22
AST 23 U/L (17-59) 12/08/24 02:22
ALT 20 U/L (0-50) 12/08/24 02:22
Alkaline Phosphatase 118 U/L (38-126) 12/08/24 02:22
Troponin I 0.369 ng/ml H* 12/08/24 04:19
Data Reviewed
-
Medical Tests (Nuc Med, Echo, EKG etc): Image Personally Visualized and interpreted
Lab Data: Labs Reviewed by me
Old Records: Reviewed
Impression/Plan
-
IMPRESSION:
69-year-old past medical history significant for CAD status post stenting, aortic valve stenosis undergoing evaluation for TAVR at [place], recent stenting of a large obtuse marginal branch at [place] in August 2024 and then stenting to OM at [facility]
for NSTEMI on December 02 comes in with waxing and waning chest pain since 7 PM with elevated troponin to 0.4. EKG shows no ischemia and is unchanged from prior. Patient currently chest pain-free. Cardiology notified.
PLAN:
NSTEMI -history of NSTEMI status post stenting complicated by LAD in-stent restenosis but currently approximately 5 days post stenting to OM1 on dual antiplatelet therapy with intermittent chest pain since 7 PM. Now chest pain free. H/O early
restenosis s/p lithotripsy and stenting to [facility], picture complicated by severe and limited access with a right iliac transplanted kidney, he has a left femoral pseudoaneurysm from his recent procedure, he has a right upper extremity fistula. He
only has a left upper extremity radial access. Also ESRD s/p Tx, fortunately renal function remains preserved s/p cath. He is pending evaluation for TAVR at [place] on Dec 11.
� Admit to IVU
� Heparin anticoagulation was started
� cp free, troponin down trending, cardiac diet for now
� Continue Brilinta and aspirin
� Continue statin
� Nitroglycerin as needed chest pain
� Medical management for now but patient possibly may return to the [facility] or transferred to [place] per cardiology
� Severe aortic stenosis, currently pending workup at [place] for TAVR, last echo shows a valve area of 0.71. EF remains preserved and no overt signs of congestive heart failure at this time
� Cardiology consulted and following
End-stage renal disease status post transplant - Cr. 1.3. Was 1.2 after Cath. Appears stable.
� Continue Myfortic 540 mg twice daily
� Continue tacrolimus 1 mg every 12 based on nephrology notes, needs Tac trough this week per nephrology
- continue sensipar for secondary hyperpara
- avoid nephrotoxins
- orthstatic hypotension, continue fludrocortisone
Bipolar
- continue lamotrigine, lurasidone/klonopin
DVT prophy�on heparin
CODE STATUS�full code
--- NOTE | 2024-12-08 07:12 | CON.CAR ---
Consultation
Consultation Request
Date/Time Consultation Requested: 12/08/2024 at 6 AM
Date/Time Consultation Performed: 12/08/2024 at 715
Requesting Provider: Dr. Dawna Menendez
Performing Provider: Edwardo Delacruz MD
Reason for Consultation: Chest pain
Medical History
-
Chief Complaint: Chest pain
History of Present Illness:
Complex 69-year-old man with aortic stenosis currently undergoing evaluation for TAVR under Dr. Rojas at the [facility], also with history of renal transplant for lithium toxicity and bipolar disorder. He had received an OM
drug-eluting stent at [place] by Dr. Gar in the spring 2024 and was admitted to [facility] on December 01 with a non-ST segment elevation MA with a peak troponin of 0.842. Cardiac catheterization revealed in-stent restenosis of the OM
stent with underexpansion in the proximal portion of the stent. He underwent shockwave lithotripsy and placement of a 3.5 mm [place] stents. His post-procedural course was complicated by a pseudoaneurysm of the left groin that required a thrombin
injection for resolution. He was discharged back to the [facility] where he resides permanently and last night developed substernal discomfort since around 7 PM on December 07. Troponins were flat at 0.4 and 0.369 nitroglycerin
improved his discomfort and he is now pain-free. At the time of catheterization, he had moderate but nonobstructive disease of the LAD and RCA. Will be following up with [facility], and thereafter back to Dr. Petit
Past Medical History
Past Medical History: CAD, HTN, Hypercholesterolemia, Renal Failure (As a result of lithium toxicity status post, status post renal transplant, creatinine at admission is 1.3, had been 1.1 on December 01 a), Valvular Disease (Aortic stenosis,
currently undergoing evaluation for TAVR at the [facility]), Psychiatric (Bipolar, previously on lithium) and Other (Hyperparathyroidism, peripheral neuropathy, constipation, familial tremor)
Past Surgical History: Other (Right upper extremity AV fistula, patent)
Social History
Tobacco: Non-Smoker
Alcohol: None
Drug: None
Personal: Single
Living: [facility]sp
Employment: Disabled
Family History
Family History: Reviewed & Not Pertinent
Allergies / Home Medications
Allergy/AdvReac Type Severity Reaction Status Date / Time
No Known Allergies Allergy Verified 12/08/24 02:19
�Medication �Instructions �Recorded �Confirmed �Type
acetaminophen 325 mg tablet 650 mg PO Q4HPRN PRN MILD PAIN 12/01/24 12/08/24 History
(Tylenol)
aspirin 81 mg tablet,delayed 81 mg PO DAILY Blood Clot 12/01/24 12/08/24 History
release Prevention/Tx
cholecalciferol (vitamin D3) 50 50 mcg PO DAILY Supplement 12/01/24 12/08/24 History
mcg (2,000 unit) tablet (Vitamin
D3)
cinacalcet 90 mg tablet 90 mg PO BID Kidney Disease 12/01/24 12/08/24 History
clonazepam 0.5 mg tablet (Klonopin) 0.5 mg PO HS Mental Health/Anxiety 12/01/24 12/08/24 History
famotidine 20 mg tablet (Pepcid) 20 mg PO DAILY Gastrointestinal 12/01/24 12/08/24 History
Issue
fludrocortisone 0.1 mg tablet 0.1 mg PO DAILY Anti-Inflammatory 12/01/24 12/08/24 History
lamotrigine 200 mg tablet 400 mg PO HS 12/01/24 12/08/24 History
lurasidone 60 mg tablet (Latuda) 60 mg PO DAILY 12/01/24 12/08/24 History
magnesium oxide 400 mg PO BID Supplement 12/01/24 12/08/24 History
melatonin 3 mg tablet 3 mg PO HS Sleep 12/01/24 12/08/24 History
mycophenolate sodium 180 mg 540 mg PO BID 12/01/24 12/08/24 History
tablet,delayed release (Myfortic)
pregabalin 50 mg capsule (Lyrica) 50 mg PO QPM Neurological Condition 12/01/24 12/08/24 History
tacrolimus 0.5 mg capsule, 1.5 mg PO Q12H Transplant 12/01/24 12/08/24 History
immediate-release (Prograf)
ticagrelor 90 mg tablet (Brilinta) 90 mg PO BID Blood Clot 12/01/24 12/08/24 History
Prevention/Tx
atorvastatin 20 mg tablet 20 mg PO QPM #30 tabs 12/06/24 12/08/24 Rx
magnesium citrate (Citrate of 150 ml PO DAILY #2,960 mL 12/06/24 12/08/24 Rx
Magnesia oral)
Review of Systems
-
All other systems: Negative unless noted
Physical Exam
Vital Signs
Temp Pulse Resp BP Pulse Ox
36.9 C 69 16 123/66 99
12/08/24 02:19 12/08/24 06:00 12/08/24 06:00 12/08/24 06:00 12/08/24 06:00
Lab Results
12/08/24 02:22
12/08/24 02:22
Troponin I 0.369 ng/ml H* 12/08/24 04:19
Physical Exam
General: No Apparent Distress
HEENT: Normocephalic
Respiratory: Clear
Cardiac: Regular Rhythm and Other (Mild aortic stenosis murmur with diminished carotids and bruits)
GI: Soft and Non Tender
Musculoskeletal: No Edema
Skin: Warm and Dry
Neuro: AO x 3
Psych: Calm
Impression / Plan
-
Impression:
Chest discomfort status post OM1 PCI for in-stent restenosis
OM1 PCI July 2024
NSTEMI, 12/01/24 initial troponin 0.8 and trending down thereafter
CAD
Remote PCI details and exact date unknown 2009
s/p PCI of OM-1 at [facility] 08/08/24
Severe being evaluated for TAVR are at [place]
Patient is not currently scheduled for TAVR
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
Bipolar disorder
Hypertension
Hyperlipidemia
Right upper extremity fistula
Familiar tremor
Echo 07/10/2023: AMH study, EF 60 to 65%, normal RV size and function, no MR/MS, moderate to severe with peak/mean 67/39 mmHg and DESHAWN 0.8 cm sq
Echo 12/02/2024: EF 59%, mild concentric LVH, normal RV size and function, severe mean gradient 39 mmHg
[facility] 08/08/2024: AMH study, diffuse calcific CAD with FFR positive stenosis in the proximal OM, s/p TUNG to OM-1, severely calcified up to 60% stenosis in the RCA luminal irregularities in the LM, calcified proximal and distal up to 40% plaque in the LAD
[facility] 12/02/2024: Stent in the OM1 has a hazy 95% restenotic segment, s/p shockwave lithotripsy of in-stent restenosis and then 3.5 mm [place] TUNG, RCA is small and diffusely diseased, LM normal with minor distal tapering, LAD with 40 to 50% proximal
stenosis and the remainder has minor irregularities
Plan:
At present he seems comfortable, and his troponin continues to trend downward. No dramatic EKG changes.
He is currently on heparin, okay to continue this at present.
Will observe through the day and reassess in the morning. The decision will be whether or not to proceed with a relook cardiac catheterization or whether to discharge. Will ask interventional cardiology to review in the a.m.
Data Reviewed
-
EKG: Tracing Personally Visualized and interpreted
Medical Tests (Nuc Med, Echo etc): Report Reviewed by me
Labs: Labs Reviewed by me
Old Records: Reviewed (Hemoglobin 11.9, white count 10.5, BUN/creatinine 29 and 1.3, potassium 4.3, Troponin 0.4 and 0.369, had been 0.633 on the )
--- NOTE | 2024-12-08 08:17 | W.PN.HOSP.TC ---
Today's Communication/Plan
-
see plan
Assessment / Plan
Assessment / Plan
IMPRESSION:
69-year-old past medical history significant for renal translant, CAD status post stenting, aortic valve stenosis undergoing evaluation for TAVR at [place], recent stenting of a large obtuse marginal branch at [place] in August 2024 and then stenting to
OM1 at [place] for NSTEMI on December 02 comes in with waxing and waning chest pain since 7 PM with elevated troponin to 0.4. EKG shows no ischemia and is unchanged from prior. Patient currently chest pain-free.
PLAN:
NSTEMI -
-CAD s/p PCI to 08/31; complicated by in-stent restenosis of s/p lithotripsy and PCI 12/02
� Admit to IVU
� IV Heparin gtt
� cp free, troponin down trending, cardiac diet for now
� Continue Brilinta and aspirin
� Continue statin
� Nitroglycerin as needed chest pain
� Medical management for now but patient possibly may return to the [facility] or transferred to [place] per cardiology, to be reassess tomorrow AM
- appreciate Cardiology consult
- last echo shows a valve area of 0.71. EF remains preserved and no overt signs of congestive heart failure at this time
-undergoing TAVR evaluation at [place]
Pseudoaneurysm
-post cath in November; s/p thrombin injection
End-stage renal disease status post transplant - Cr. 1.3. Was 1.2 after Cath. Appears stable.
� Continue Myfortic 540 mg twice daily
� Continue tacrolimus 1 mg every 12 based on nephrology notes, needs Tac trough this week per nephrology
- continue sensipar for secondary hyperpara
- avoid nephrotoxins
- orthostatic hypotension, continue fludrocortisone
Bipolar
- continue lamotrigine, lurasidone/klonopin
DVT prophy�on heparin
CODE STATUS�full code
Anticipated Discharge: 24 - 48 hours
Subjective/Interval History
-
Date of Service: December 08, 2024
chest pain free
feeling well, ate breakfast this morning
Objective Data
-
Labs:
Laboratory Results
12/08/24 12/08/24 12/08/24
02:22 03:24 10:00
WBC 10.5
Hgb 11.9 L
Hct 35.9 L
Plt Count 215 D
APTT 33.6 Pending
Sodium 140
Potassium 4.3
Chloride 105
Carbon Dioxide 27
BUN 29 H
Creatinine 1.3
Glucose 105 H
Calcium 8.7
Total Bilirubin 0.8
AST 23
ALT 20
Alkaline Phosphatase 118
Vital Signs:
Vital Signs
Temp Pulse Resp BP Pulse Ox
98.4 F 69 16 123/66 99
12/08/24 02:19 12/08/24 06:00 12/08/24 06:00 12/08/24 06:00 12/08/24 06:00
I&O
12/07/24 12/08/24 12/09/24
06:59 06:59 06:59
Output Total 700 / 700
Balance -700 / -700
Review of Systems
-
History Source: Patient
All other systems: Reviewed and negative
Physical Exam
-
General: No Apparent Distress
HEENT: PERRLA
Respiratory: Clear to Auscultation; Negative Wheezes
Cardiac: Regular Rhythm and S1/S2
GI: Soft and Nontender
Musculoskeletal: No Edema
Skin: Warm and Dry; Negative Rash
Neuro: AO x 3
Psych: Calm
Data Reviewed
-
Diagnostic Radiology: Report Reviewed by me
Labs: Labs Reviewed by me
[2024-12-08 08:21] LABS: Troponin I 0.291 ng/ml
--- NOTE | 2024-12-08 09:00 | PTCARENOTE ---
Received pt from ED, VSS, monitor showing NSR. Denies chest pain at present, instructed to call staff if any further pain. Heparin drip infusing without difficulty. Oriented to room, call correia in reach.
[2024-12-08] MEDS: PROGRAF 1 MG PO ×2 (09:44→19:51)
[2024-12-08] MEDS: SENSIPAR 90 MG PO ×2 (09:44→19:51)
[2024-12-08] MEDS: MYFORTIC DELAYED REL. 540 MG PO ×2 (09:44→19:51)
[2024-12-08] MEDS: ASPIR LOW (ENTERIC COATED) 81 MG PO (09:45)
[2024-12-08] MEDS: FLORINEF 0.1 MG PO (09:45)
[2024-12-08] MEDS: PEPCID 20 MG PO (09:45)
[2024-12-08] MEDS: BRILINTA 90 MG PO ×2 (09:45→19:51)
[2024-12-08 11:47] LABS: APTT 36.4 Sec (23.4-35.0)
[2024-12-08 12:04] LABS: Troponin I 0.209 ng/ml
--- NOTE | 2024-12-08 15:26 | W.DCSUMMARY ---
Discharge Summary
Discharge Data
Date of Admission: 12/08/24
Date of Discharge: 12/10/24
-
Pending Results: No
Hospital Course
Discharging Physician : Dr. Almita Voss
Disposition : Home
Primary care physician : Dr. Francisco Kearns
Principal Discharge diagnosis : chest pain
Hospital Course :
Mr. David Joseph is a 69 yo man with hx ESRD s/p renal transplant, undergoing TAVR work-up, CAD s/p PCI to at [facility] (08/31), admission 12/01 for in-stent restenosis of OM s/p shockwave lithotripsy and TUNG, pseudoaeurysm left groin s/p
thrombolysis presents to the ER complaining of chest pain.
Triage vitals stable. Labs with Troponin 0.400. EKG without significant changes from prior. His chest pain resolved in the ER. Patient was started on an IV Heparin gtt and admitted to medicine with Cardiology consulting for possible NSTEMI.
Patient remained chest pain free over the next 24 hours and Troponin trended down. His heparin gtt was stopped. Patient continued to remain chest pain free including on ambulation. Metoprolol XL 12.5mg qhs added to home regimen. Per Cardiology,
no need for further intervention and OK for discharge with follow up.
His LEGAL TRANSCRIPTIONIST pepcid is stopped and replaced with Protonix given he is on Aspirin and Brilinta.
Time spent on discharge was 32 minutes.
Important imaging findings :
Procedure findings :
Discharge Plan
-
Patient Disposition: Home (Routine Discharge)
Discharge Diagnosis/Procedures: atypical chest pain
Diet: Low Cholesterol
Activity: As tolerated
Driving Restrictions: As prior to admission
Bathing Restrictions: None
Referrals:
Francisco Kearns MD [Family Provider, Internal Medicine] - in less than 1 week
Additional Discharge Medication Instructions: Follow up Dr. Rojas at [place] on 01/02 as planned
You are newly prescribed Metoprolol XL 12.5 mg daily (in evenings) to help protect heart.
Stop Pepcid, this is replaced with Protonix to help better protect the lining of your stomach while you are on Aspirin and Brilinta.
Prescriptions:
New
metoprolol succinate 25 mg Tablet Extended Release 24 Hr
12.5 mg PO HS Qty: 30 1RF
pantoprazole 40 mg Tablet,Delayed Release (Dr/Ec)
40 mg PO DAILY Qty: 30 1RF
Continued
acetaminophen [Tylenol] 325 mg Tablet
650 mg PO Q4HPRN PRN (Reason: MILD PAIN)
lamotrigine 200 mg Tablet
400 mg PO HS
clonazepam [Klonopin] 0.5 mg Tablet
0.5 mg PO HS
melatonin 3 mg Tablet
3 mg PO HS
aspirin 81 mg Tablet,Delayed Release (Dr/Ec)
81 mg PO DAILY
fludrocortisone 0.1 mg Tablet
0.1 mg PO DAILY
tacrolimus [Prograf] 0.5 mg Capsule
1.5 mg PO Q12H
mycophenolate sodium [Myfortic] 180 mg Tablet,Delayed Release (Dr/Ec)
540 mg PO BID
cinacalcet 90 mg Tablet
90 mg PO BID
pregabalin [Lyrica] 50 mg Capsule
50 mg PO QPM
cholecalciferol (vitamin D3) [Vitamin D3] 50 mcg (2,000 unit) Tablet
50 mcg PO DAILY
ticagrelor [Brilinta] 90 mg Tablet
90 mg PO BID
lurasidone [Latuda] 60 mg Tablet
60 mg PO DAILY
magnesium oxide 400 mg magnesium Tablet
400 mg PO BID
magnesium citrate [Citrate of Magnesia] Solution
150 ml PO DAILY Qty: 2960 0RF
atorvastatin 20 mg Tablet
20 mg PO QPM Qty: 30 0RF
Discontinued
famotidine [Pepcid] 20 mg Tablet
20 mg PO DAILY
Discharge Orders:
Discharge Patient (As Directed); Ordered 12/10/24
Ordered By: Almita Voss
Care Plan Goals
Care Plan Goals:
Problem: Readiness for enhanced knowledge related to diagnosis and treatment plan
Goal: Understand your diagnosis and treatment plan needs, including medications if applicable.
Instructions: Know your diagnosis, underlying causes and treatment plan options, including medications if applicable. Consult with your health care team to learn about your diagnosis and treatment plan, including medications if applicable.
Discharge Date and Time
Print Language: UZBEK
[2024-12-08] MEDS: LATUDA 60 MG PO (17:40)
[2024-12-08] MEDS: LYRICA 50 MG PO (17:40)
[2024-12-08] MEDS: LIPITOR 20 MG PO (17:40)
[2024-12-08 19:02] LABS: APTT 108.6 Sec (23.4-35.0)
--- NOTE | 2024-12-08 20:53 | PTCARENOTE ---
Rec'd pt at change of shift. Pt AAO*3, VSS, and Sr on TELE monitor with 1st degree AV block. Pt denies any pain or discomfort. Pt with heparin infusing as ordered and now resting with call correia in reach. See MAR and flowchart for full pt care
and assessment.
[2024-12-08] MEDS: MELATONIN 3 MG PO (21:46)
[2024-12-08] MEDS: LAMICTAL 400 MG PO (21:46)
[2024-12-08] MEDS: KLONOPIN 0.5 MG PO (21:46)
[2024-12-09] VITALS (9 sets, daily range): BP systolic 115–144; BP diastolic 56–69; PULSE 68; BMI 26.2
[2024-12-09 03:20] LABS: APTT 103.2 Sec (23.4-35.0)
[2024-12-09 04:06] LABS: Blood Urea Nitrogen 24 mg/dl (9-20); Calcium 8.6 mg/dl (8.4-10.2); Carbon Dioxide 24 mmol/L (22-30); Chloride 107 mmol/L (98-107); Estimated Creatinine Clearance 55 ml/min; Glucose 104 mg/dl (70-99); Magnesium 1.5 mg/dl (1.6-2.3); Potassium 4.3 mmol/L (3.5-5.1); Sodium 139 mmol/L (135-145); eGFR 59.10
[2024-12-09] MEDS: HEPARIN 25000 UNITS/250 ML IV (04:23)
--- NOTE | 2024-12-09 07:48 | W.PN.HOSP.TC ---
Today's Communication/Plan
-
see plan
Assessment / Plan
Assessment / Plan
Mr. David Joseph is a 69 yo man with hx ESRD s/p renal transplant, undergoing TAVR work-up, CAD s/p PCI to at [facility] (08/31), admission 12/01 for in-stent restenosis of OM s/p shockwave lithotripsy and placement PCI, pseudoaeurysm left groin
s/p thrombolysis presents to the ER complaining of chest pain.
PLAN:
NSTEMI -
-CAD s/p PCI to OM 08/31; complicated by in-stent restenosis of OM s/p lithotripsy and PCI 12/02
� Admit to IVU
� IV Heparin gtt
� cp free, troponin down trending, cardiac diet for now
� Continue Brilinta and aspirin
� Continue statin
� Nitroglycerin as needed chest pain
� Medical management for now but patient possibly may return to the [facility] or transferred to [place] per cardiology, to be reassessed by Cardiology this AM (patient told to not eat until seen by Technology Sales Representative)
- appreciate Cardiology consult
-start GI PPx with Protonix while on aspirin, brilinta and Heparin gtt
- last echo shows a valve area of 0.71. EF remains preserved and no overt signs of congestive heart failure at this time
-undergoing TAVR evaluation at [place]
Pseudoaneurysm
-post cath in November; s/p thrombin injection
End-stage renal disease status post transplant - Cr. 1.3. Was 1.2 after Cath. Appears stable.
� Continue Myfortic 540 mg twice daily
� Continue tacrolimus 1 mg every 12 based on nephrology notes, needs Tac trough this week per nephrology
- continue sensipar for secondary hyperpara
- avoid nephrotoxins
- orthostatic hypotension, continue fludrocortisone
Bipolar
- continue lamotrigine, lurasidone/klonopin
DVT prophy�on heparin
CODE STATUS�full code
Anticipated Discharge: 24 - 48 hours
Subjective/Interval History
-
Date of Service: December 09, 2024
feeling well
denies chest pain
no abdominal pain
Objective Data
-
Labs:
Laboratory Results
12/09/24
02:47
APTT 103.2 H
Sodium 139
Potassium 4.3
Chloride 107
Carbon Dioxide 24
BUN 24 H
Creatinine 1.3
Glucose 104 H
Calcium 8.6
Vital Signs:
Vital Signs
Temp Pulse Resp BP Pulse Ox
98.1 F 77 16 125/64 95
12/09/24 07:38 12/09/24 06:00 12/09/24 07:38 12/09/24 02:31 12/09/24 07:38
I&O
12/08/24 12/09/24 12/10/24
06:59 06:59 06:59
Output Total 700 / 700 500 / 500
Balance -700 / -700 -500 / -500
Review of Systems
-
History Source: Patient
All other systems: Reviewed and negative
Physical Exam
-
General: No Apparent Distress
HEENT: PERRLA
Respiratory: Clear to Auscultation; Negative Wheezes
Cardiac: Regular Rhythm and S1/S2
GI: Soft and Nontender
Musculoskeletal: No Edema
Skin: Warm and Dry; Negative Rash
Neuro: AO x 3
Psych: Calm
Data Reviewed
-
Diagnostic Radiology: Report Reviewed by me
Labs: Labs Reviewed by me
[2024-12-09] MEDS: MYFORTIC DELAYED REL. 540 MG PO ×2 (08:25→20:09)
[2024-12-09] MEDS: ASPIR LOW (ENTERIC COATED) 81 MG PO (08:25)
[2024-12-09] MEDS: PEPCID 20 MG PO (08:25)
[2024-12-09] MEDS: SENSIPAR 90 MG PO ×2 (08:25→20:09)
[2024-12-09] MEDS: BRILINTA 90 MG PO ×2 (08:25→20:09)
[2024-12-09] MEDS: FLORINEF 0.1 MG PO (08:25)
[2024-12-09] MEDS: PROGRAF 1 MG PO ×2 (08:26→20:10)
[2024-12-09] MEDS: MAGNESIUM SULFATE 50 IV (08:57)
[2024-12-09] MEDS: PROTONIX 40 MG PO (08:58)
--- NOTE | 2024-12-09 09:36 | W.PN.CARDCBS ---
Addendum entered and electronically signed by Elizabeth Thibodeaux PA-C 12/09/24 10:46:
would continue PPI as on DAPT.
Addendum entered and electronically signed by Elver Ngo MD 12/09/24 10:17:
I saw and examined the patient.
The COMPLIANCE QUALITY PERFORMANCE ANALYST or PA's note was reviewed and I agree with the note.
Comment: General: Well developed, well nourished in NAD.
Neck: Supple, no JVD, HJR, carotids +2 B/L, no bruits bilaterally.
Heart: Non displaced PMI, RRR, 3/6 systolic murmur heard throughout precordium, No S3, S4, no rubs.
Lungs: Clear to auscultation bilaterally, no wheeze, rhonchi, rubs bilaterally,
normal expiratory phase.
Extremities: No clubbing, cyanosis or edema bilaterally.
Neuro: Grossly nonfocal, awake, alert and oriented x3.
No further chest pain. He had 1 hour of chest pain and troponins continue to decrease. Troponin elevation may be due to [place] 1 week ago as troponins may remain elevated for 2 weeks. Discussed with patient in detail and he is reluctant to undergo
catheterization and I agree. Will stop IV heparin and ambulate. If no further chest pain, stable cardiology status for discharge on 12/10. Discussed with primary service and nursing in detail.
Original Note:
Today's Communication / Plan
-
Stop IV heparin
Ambulate
Will attempt to add Toprol 12.5 mg at bedtime. Follow blood pressures
for possible DC later today vs in AM
Impression / Plan
-
Impression:
Chest discomfort status post OM1 PCI for in-stent restenosis
OM1 PCI July 2024
NSTEMI, 12/01/24 initial troponin 0.8 and trending down thereafter
CAD
Remote PCI details and exact date unknown 2009
s/p PCI of OM-1 at [facility] 08/08/24
Severe being evaluated for TAVR are at [place]
Patient is not currently scheduled for TAVR
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
Bipolar disorder
Hypertension
Hyperlipidemia
Right upper extremity fistula
Familiar tremor
Echo 07/10/2023: AMH study, EF 60 to 65%, normal RV size and function, no MR/MS, moderate to severe with peak/mean 67/39 mmHg and DESHAWN 0.8 cm sq
Echo 12/02/2024: EF 59%, mild concentric LVH, normal RV size and function, severe mean gradient 39 mmHg
[facility] 08/08/2024: AMH study, diffuse calcific CAD with FFR positive stenosis in the proximal OM, s/p TUNG to OM-1, severely calcified up to 60% stenosis in the RCA luminal irregularities in the LM, calcified proximal and distal up to 40% plaque in the LAD
[facility] 12/02/2024: Stent in the OM1 has a hazy 95% restenotic segment, s/p shockwave lithotripsy of in-stent restenosis and then 3.5 mm [place] TUNG, RCA is small and diffusely diseased, LM normal with minor distal tapering, LAD with 40 to 50% proximal
stenosis and the remainder has minor irregularities
Plan:
-patient presented with chest discomfort in setting of recent OM1 PCI 12/01.
-trops continue to trend down from last admission
-EKG without significant new ST abnormalities and remains in SR on review of tele overnight.
-echo with preserved EF 12/02/24
-CP free overnight
-stop IV heparin. continue asa, brilinta
-will review case with interventional cardiology, however patient would like to attempt to avoid repeat cath if possible
-he was not discharged on antianginal therapy last admission due to symptomatic orthostasis on florinef. would consider trial of low dose toprol 12.5mg HS
-ambulate
-he is planning on cardiac rehab through [facility]
-has follow up with Dr. Rojas of [place] scheduled 01/02 for both echo at 11AM and consult at 1:30PM
-for possible DC to home later today vs in AM
Progress Note - Email Marketing Coordinator
Subjective
Date of Service: December 09, 2024
No chest pain overnight
Objective
Labs:
12/08/24 02:22
12/09/24 02:47
Labs
Hgb 11.9 g/dL (13.0-18.0) L 12/08/24 02:22
Hct 35.9 % (39.0-52.0) L 12/08/24 02:22
Plt Count 215 10^3/uL (130-400) D 12/08/24 02:22
APTT 103.2 Sec (23.4-35.0) H 12/09/24 02:47
Sodium 139 mmol/L (135-145) 12/09/24 02:47
Potassium 4.3 mmol/L (3.5-5.1) 12/09/24 02:47
BUN 24 mg/dl (9-20) H 12/09/24 02:47
Creatinine 1.3 mg/dL (0.7-1.3) 12/09/24 02:47
Glucose 104 mg/dl (70-99) H 12/09/24 02:47
Troponins
12/08/24 12/08/24 12/08/24
02:22 04:19 07:07
Troponin I 0.400 H* 0.369 H* 0.291 H*
12/08/24
11:21
Troponin I 0.209 H* D
Vital Signs and I&O:
Vital Signs
Temp Pulse Resp BP Pulse Ox
98.1 F 71 16 115/56 96
12/09/24 07:38 12/09/24 08:00 12/09/24 07:38 12/09/24 07:40 12/09/24 07:40
Vital Signs
Temp Pulse Resp BP Pulse Ox
98.1 F 71 16 115/56 96
12/09/24 07:38 12/09/24 08:00 12/09/24 07:38 12/09/24 07:40 12/09/24 07:40
Intake & Output
12/07/24 12/08/24 12/09/24 12/10/24
07:59 07:59 07:59 07:59
Output Total 700 / 700 500 / 500
Balance -700 / -700 -500 / -500
Physical Exam
Physical Exam
GEN: No distress, awake, alert, oriented x3. Tremor
HEENT: supple, anicteric, mmm, EOMI
LUNGS: CTA bilaterally, no wheezes/rales
CV: Reg, S1/S2, 3/6 syst LSB
ABD: soft, BS+, NT/ND
EXT: No cyanosis, clubbing, edema
NEURO: Gross non-focal
SKIN: Warm, pink, dry. No rash
--- NOTE | 2024-12-09 15:57 | CM ---
spoke to pt in room, he lives [place] [facility], he would like to return there when medically stable. cm role epxlained. all questions answered.
[2024-12-09] MEDS: LATUDA 60 MG PO (17:33)
[2024-12-09] MEDS: LIPITOR 20 MG PO (17:33)
[2024-12-09] MEDS: LYRICA 50 MG PO (17:33)
[2024-12-09] MEDS: KLONOPIN 0.5 MG PO (22:56)
[2024-12-09] MEDS: TOPROL XL 12.5 MG PO (22:56)
[2024-12-09] MEDS: MELATONIN 3 MG PO (22:56)
[2024-12-09] MEDS: LAMICTAL 400 MG PO (22:56)
--- NOTE | 2024-12-10 00:49 | PTCARENOTE ---
Rec'd pt at change of shift. Pt AAO*3, VSS, and SR with 1st degree HB. Pt denies any pain or discomfort and updated on plan of care. Pt now resting with call correia in reach. See MAR and flowchart for full pt care and assessment.
[2024-12-10 02:49] VITALS: BP 197/162
[2024-12-10 02:50] VITALS: BP 110/59
[2024-12-10 02:51] VITALS: BP 110/59
[2024-12-10 02:57] VITALS: BMI 26.0
[2024-12-10 03:43] LABS: Hematocrit 35.1 % (39.0-52.0); Hemoglobin 11.5 g/dL (13.0-18.0); Mean Corp Hgb Conc. 32.8 g/dL (33.0-37.0); Mean Corpuscular Volume 85.6 fL (80.0-94.0); Platelet Count 203 10^3/uL (130-400); Red Cell Dist. Width 13.4 % (11.5-14.5)
[2024-12-10 03:50] LABS: APTT 35.4 Sec (23.4-35.0)
[2024-12-10 04:09] LABS: Blood Urea Nitrogen 26 mg/dl (9-20); Calcium 8.8 mg/dl (8.4-10.2); Carbon Dioxide 24 mmol/L (22-30); Chloride 106 mmol/L (98-107); Estimated Creatinine Clearance 55 ml/min; Glucose 99 mg/dl (70-99); Magnesium 1.4 mg/dl (1.6-2.3); Potassium 4.3 mmol/L (3.5-5.1); Sodium 138 mmol/L (135-145); eGFR 59.10
[2024-12-10 07:08] VITALS: BP 110/50
--- NOTE | 2024-12-10 07:54 | W.PN.HOSP.TC ---
Today's Communication/Plan
-
anticipate DC today after cleared by Cardiology
Assessment / Plan
Assessment / Plan
Mr. David Joseph is a 69 yo man with hx ESRD s/p renal transplant, undergoing TAVR work-up, CAD s/p PCI to at [facility] (08/31), admission 12/01 for in-stent restenosis of OM s/p shockwave lithotripsy and placement PCI, pseudoaeurysm left groin
s/p thrombolysis presents to the ER complaining of chest pain.
PLAN:
NSTEMI -
-CAD s/p PCI to 08/31; complicated by in-stent restenosis of OM s/p lithotripsy and PCI 12/02
� Admit to IVU
� IV Heparin gtt now off
� cp free, troponin down trending, no need for cath per Cardiology
� Continue Brilinta and aspirin
� Continue statin
- low dose Metoprolol initiated
� Nitroglycerin as needed chest pain
- appreciate Cardiology consult
-start GI PPx with Protonix while on aspirin, brilinta and Heparin gtt
- last echo shows a valve area of 0.71. EF remains preserved and no overt signs of congestive heart failure at this time
-undergoing TAVR evaluation at [place]
Pseudoaneurysm
-post cath in November; s/p thrombin injection
End-stage renal disease status post transplant - Cr. 1.3. Was 1.2 after Cath. Appears stable.
� Continue Myfortic 540 mg twice daily
� Continue tacrolimus 1 mg every 12 based on nephrology notes, needs Tac trough this week per nephrology
- continue sensipar for secondary hyperpara
- avoid nephrotoxins
- orthostatic hypotension, continue fludrocortisone
Bipolar
- continue lamotrigine, lurasidone/klonopin
DVT prophy�on heparin
CODE STATUS�full code
Anticipated Discharge: Today
Subjective/Interval History
-
Date of Service: December 10, 2024
feeling well and hoping to go home today
walked around yesterday, remains chest pain free
Objective Data
-
Labs:
Laboratory Results
12/10/24
02:55
WBC 7.9
Hgb 11.5 L
Hct 35.1 L
Plt Count 203
APTT 35.4 H
Sodium 138
Potassium 4.3
Chloride 106
Carbon Dioxide 24
BUN 26 H
Creatinine 1.3
Glucose 99
Calcium 8.8
Vital Signs:
Vital Signs
Temp Pulse Resp BP Pulse Ox
98.3 F 56 17 110/50 97
12/10/24 02:50 12/10/24 07:08 12/10/24 07:08 12/10/24 07:08 12/10/24 07:08
I&O
12/09/24 12/10/24 12/11/24
06:59 06:59 06:59
Intake Total 1200 / 1200
Output Total 500 / 500 1675 / 1675 600 / 600
Balance -500 / -500 -475 / -475 -600 / -600
Review of Systems
-
History Source: Patient
All other systems: Reviewed and negative
Physical Exam
-
General: No Apparent Distress
HEENT: PERRLA
Respiratory: Clear to Auscultation; Negative Wheezes
Cardiac: Regular Rhythm and S1/S2
GI: Soft and Nontender
Musculoskeletal: No Edema
Skin: Warm and Dry; Negative Rash
Neuro: AO x 3
Psych: Calm
Data Reviewed
-
Diagnostic Radiology: Report Reviewed by me
Labs: Labs Reviewed by me
[2024-12-10] MEDS: PROGRAF 1 MG PO (07:58)
[2024-12-10] MEDS: FLORINEF 0.1 MG PO (07:58)
[2024-12-10] MEDS: BRILINTA 90 MG PO (07:58)
[2024-12-10] MEDS: SENSIPAR 90 MG PO (07:58)
[2024-12-10] MEDS: PEPCID 20 MG PO (07:58)
[2024-12-10] MEDS: PROTONIX 40 MG PO (07:58)
[2024-12-10] MEDS: ASPIR LOW (ENTERIC COATED) 81 MG PO (07:58)
[2024-12-10] MEDS: MYFORTIC DELAYED REL. 540 MG PO (07:58)
--- NOTE | 2024-12-10 08:44 | W.PN.CARDCBS ---
Addendum entered and electronically signed by Jim Maddox MD 12/10/24 09:43:
I saw and examined the patient.
The Administrative Supervisor's note was reviewed and I agree with the note.
Comment: Briefly, 69-year-old man with past medical history of CAD and recent NSTEMI on 12/01/2024 due to in-stent restenosis of the OM1 which was treated with drug-eluting stent as well as severe aortic stenosis and ESRD s/p renal xplant who
presents with chest discomfort.
Patient tells me he had an episode of chest discomfort on Thursday 12/07 which brought him to [place] emergency department for evaluation. Chest discomfort has not recurred and he was resting comfortably in the IVU at the time of my evaluation.
Initial troponin elevated at 0.40 and down trended
ECG here is unchanged from prior
Maintaining sinus rhythm on my review of telemetry
No evidence of decompensated heart failure or mechanical complication of TX on physical exam
Overall suspect troponin elevation is residual from recent NSTEMI
Would continue aspirin/Brilinta, high intensity statin
Add metoprolol as antianginal
Eventual cardiac rehab
He is stable for discharge from my perspective and should follow-up with his primary hair colorist at [facility]
Original Note:
Today's Communication / Plan
-
Okay for discharge
Continue aspirin, Brilinta, statin, PPI
Toprol 12.5 mg nightly new this admission
Outpatient follow-up as arranged�undergoing TAVR workup through [place]
Impression / Plan
-
Impression:
Chest discomfort status post OM1 PCI for in-stent restenosis
OM1 PCI July 2024
NSTEMI, 12/01/24 initial troponin 0.8 and trending down thereafter
CAD
Remote PCI details and exact date unknown 2009
s/p PCI of OM-1 at [facility] 08/08/24
Severe being evaluated for TAVR are at [place]
Patient is not currently scheduled for TAVR
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
Bipolar disorder
Hypertension
Hyperlipidemia
Right upper extremity fistula
Familiar tremor
Echo 07/10/2023: AMH study, EF 60 to 65%, normal RV size and function, no MR/MS, moderate to severe with peak/mean 67/39 mmHg and DESHAWN 0.8 cm sq
Echo 12/02/2024: EF 59%, mild concentric LVH, normal RV size and function, severe mean gradient 39 mmHg
[facility] 08/08/2024: AMH study, diffuse calcific CAD with FFR positive stenosis in the proximal OM, s/p TUNG to OM-1, severely calcified up to 60% stenosis in the RCA luminal irregularities in the LM, calcified proximal and distal up to 40% plaque in the LAD
[facility] 12/02/2024: Stent in the OM1 has a hazy 95% restenotic segment, s/p shockwave lithotripsy of in-stent restenosis and then 3.5 mm [place] TUNG, RCA is small and diffusely diseased, LM normal with minor distal tapering, LAD with 40 to 50% proximal
stenosis and the remainder has minor irregularities
Plan:
-patient presented with chest discomfort in setting of recent OM1 PCI 12/01.
-trops continue to trend down from last admission
-EKG without significant new ST abnormalities and remains in SR on review of tele overnight.
-echo with preserved EF 12/02/24
-no recurrences of CP
-continue asa, brilinta
-he was not discharged on antianginal therapy last admission due to symptomatic orthostasis on florinef. continue toprol 12.5mg HS, tolerating thus far
-ambulate
-he is planning on cardiac rehab through [facility]. will provide RX
-has follow up with Dr. Rojas of [place] scheduled 01/02 for both echo at 11AM and consult at 1:30PM
-for DC to home today
- Discussed with nursing. Discussed with hospitalist via [place] text
Progress Note - Special Education Paraeducator
Subjective
Date of Service: December 10, 2024
No recurrences of chest discomfort overnight. No shortness of breath. Ambulated with PT without significant issue
Objective
Labs:
12/10/24 02:55
12/10/24 02:55
Labs
Hgb 11.5 g/dL (13.0-18.0) L 12/10/24 02:55
Hct 35.1 % (39.0-52.0) L 12/10/24 02:55
Plt Count 203 10^3/uL (130-400) 12/10/24 02:55
APTT 35.4 Sec (23.4-35.0) H 12/10/24 02:55
Sodium 138 mmol/L (135-145) 12/10/24 02:55
Potassium 4.3 mmol/L (3.5-5.1) 12/10/24 02:55
BUN 26 mg/dl (9-20) H 12/10/24 02:55
Creatinine 1.3 mg/dL (0.7-1.3) 12/10/24 02:55
Glucose 99 mg/dl (70-99) 12/10/24 02:55
Troponins
12/08/24 12/08/24 12/08/24
02:22 04:19 07:07
Troponin I 0.400 H* 0.369 H* 0.291 H*
12/08/24
11:21
Troponin I 0.209 H* D
Vital Signs and I&O:
Vital Signs
Temp Pulse Resp BP Pulse Ox
98.3 F 56 17 110/50 97
12/10/24 02:50 12/10/24 07:08 12/10/24 07:08 12/10/24 07:08 12/10/24 07:08
Vital Signs
Temp Pulse Resp BP Pulse Ox
98.3 F 56 17 110/50 97
12/10/24 02:50 12/10/24 07:08 12/10/24 07:08 12/10/24 07:08 12/10/24 07:08
Intake & Output
12/08/24 12/09/24 12/10/24 12/11/24
07:59 07:59 07:59 07:59
Intake Total 1200 / 1200
Output Total 700 / 700 500 / 500 2275 / 2275
Balance -700 / -700 -500 / -500 -1075 / -1075
Physical Exam
Physical Exam
GEN: No distress, awake, alert, oriented x3. Tremor
HEENT: supple, anicteric, mmm, EOMI
LUNGS: CTA bilaterally, no wheezes/rales
CV: Reg, S1/S2, 3/6 syst LSB
ABD: soft, BS+, NT/ND
EXT: No cyanosis, clubbing, edema
NEURO: Gross non-focal
SKIN: Warm, pink, dry. No rash. Fistula RUE
--- NOTE | 2024-12-10 09:05 | W.DS.TRANS ---
DC Summary - Meal Cooker
-
Discharge Instructions:
Discharge Diagnosis/Procedures atypical chest pain
Diet Low Cholesterol
Activity As tolerated
Driving Restrictions As prior to admission
Bathing Restrictions None
Instructions:
Stand-Alone Forms:
Changes to Home Medications: Yes
Discharge Medications:
DC Medications w/original date entered in [facility]
acetaminophen 325 mg tablet (Tylenol) 650 mg PO Q4HPRN PRN MILD PAIN 12/01/24
aspirin 81 mg tablet,delayed release 81 mg PO DAILY Blood Clot Prevention/Tx 12/01/24
cholecalciferol (vitamin D3) 50 mcg (2,000 unit) tablet (Vitamin D3) 50 mcg PO DAILY Supplement 12/01/24
cinacalcet 90 mg tablet 90 mg PO BID Kidney Disease 12/01/24
clonazepam 0.5 mg tablet (Klonopin) 0.5 mg PO HS Mental Health/Anxiety 12/01/24
fludrocortisone 0.1 mg tablet 0.1 mg PO DAILY Anti-Inflammatory 12/01/24
lamotrigine 200 mg tablet 400 mg PO HS Mental Health/Anxiety 12/01/24
lurasidone 60 mg tablet (Latuda) 60 mg PO DAILY Mental Health/Anxiety 12/01/24
magnesium oxide 400 mg PO BID Supplement 12/01/24
melatonin 3 mg tablet 3 mg PO HS Sleep 12/01/24
mycophenolate sodium 180 mg tablet,delayed release (Myfortic) 540 mg PO BID Transplant 12/01/24
pregabalin 50 mg capsule (Lyrica) 50 mg PO QPM Neurological Condition 12/01/24
tacrolimus 0.5 mg capsule, immediate-release (Prograf) 1.5 mg PO Q12H Transplant 12/01/24
ticagrelor 90 mg tablet (Brilinta) 90 mg PO BID Blood Clot Prevention/Tx 12/01/24
atorvastatin 20 mg tablet 20 mg PO QPM #30 tabs 12/06/24
magnesium citrate (Citrate of Magnesia oral) 150 ml PO DAILY #2,960 mL 12/06/24
metoprolol succinate 25 mg tablet,extended release 24 hr 12.5 mg (1/2 x 25 mg) PO HS #30 tabs 12/10/24
pantoprazole 40 mg tablet,delayed release 40 mg PO DAILY #30 tabs 12/10/24
Home Medication Changes
You are newly prescribed Metoprolol XL 12.5 mg daily (in evenings) to help protect heart.
Stop Pepcid, this is replaced with Protonix to help better protect the lining of your stomach while you are on Aspirin and Brilinta.
Pending Results: No
[2024-12-10 11:08] VITALS: BP 105/58
--- NOTE | 2024-12-10 13:54 | PTCARENOTE ---
Pt is AOx3, no complaints of pain or discomfort. Pt has hx of tremors. SR w/1st HB on tele monitor, VSS. Plan for discharge back to [facility] later today. Call correia within reach.
--- NOTE | 2024-12-10 14:11 | PTCARENOTE ---
attempted to call report to [facility] [phone]) with no response.
[2024-12-10 14:20] VITALS: BP 107/61
--- NOTE | 2024-12-10 14:21 | CM ---
pt dc'ed back to [place] at [facility] via lisa elder.
--- NOTE | 2024-12-10 14:31 | PTCARENOTE ---
gave report to Jessica online community manager at [facility]
--- NOTE | 2024-12-11 11:39 | PTCARENOTE ---
Outpatient dietitian received call from patient requesting information on his diet. He was discharged before calling him back and was not seen by inpatient dietitian. He reported he would like information on low cholesterol diet as on discharge
instructions. He stated he lives in a termite helper care facility and plans to speak with dietitian at his facility when able about his diet. He stated he also plans to attend cardiac rehab but at facility other than [facility].
Mailed patient low cholerestol diet guidelines and encouraged to speak with dietitian at facility and at cardiac rehab to clarify his personal needs and recommendations.
== END 2024-12-10 15:25 | disposition home or self-care (01) | DRG 281 ==
LOC: IVU 06:18
PROVIDERS: ADMITTING PHYSICIAN Internal Medicine; ATTENDING PHYSICIAN Student in an Organized Health Care Education/Training Program; CONSULT PHYSICIAN Internal Medicine Cardiovascular Disease; EMERGENCY PHYSICIAN Emergency Medicine; FAMILY PHYSICIAN Internal Medicine Geriatric Medicine
DX: R07.89 Other chest pain (principal); I12.0 Hypertensive chronic kidney disease with stage 5 chronic kidney disease or end stage renal disease; I21.4 Non-ST elevation (NSTEMI) myocardial infarction; I95.9 Hypotension, unspecified; F31.9 Bipolar disorder, unspecified; I72.4 Aneurysm of artery of lower extremity; I25.10 Atherosclerotic heart disease of native coronary artery without angina pectoris; E21.3 Hyperparathyroidism, unspecified; F41.9 Anxiety disorder, unspecified; G25.0 Essential tremor; G62.9 Polyneuropathy, unspecified; I06.0 Rheumatic aortic stenosis; K59.00 Constipation, unspecified; E78.00 Pure hypercholesterolemia, unspecified; Z79.02 Long term (current) use of antithrombotics/antiplatelets; Z79.52 Long term (current) use of systemic steroids; Z79.82 Long term (current) use of aspirin; Z79.899 Other long term (current) drug therapy
CPT/HCPCS: 80048; 80053; 83735; 84484; 85025; 85027; 85730; 87070; 93005; 96374; 97162; 99291

== ENCOUNTER 2024-12-21 12:39 | Inpatient (IN) | payer MEDICARE, OTHER, SELFPAY ==
[2024-12-21] VITALS (17 sets, daily range): BP systolic 105–132; BP diastolic 45–65; BMI 27.5; BMI 26.3
[2024-12-21 05:51] LABS: Hematocrit 36.1 % (39.0-52.0); Hemoglobin 11.8 g/dL (13.0-18.0); Mean Corp Hgb Conc. 32.7 g/dL (33.0-37.0); Mean Corpuscular Volume 87.2 fL (80.0-94.0); Nucleated Red Blood Cells % 0 % (-); Platelet Count 193 10^3/uL (130-400); Red Cell Dist. Width 14.0 % (11.5-14.5)
[2024-12-21 06:22] LABS: Troponin I 0.015 ng/ml
[2024-12-21 06:39] LABS: ALT (SGPT) 21 U/L (0-50); AST (SGOT) 23 U/L (17-59); Albumin 4.2 g/dl (3.5-5.0); Alkaline Phosphatase 117 U/L (38-126); Blood Urea Nitrogen 28 mg/dl (9-20); Calcium 7.9 mg/dl (8.4-10.2); Carbon Dioxide 21 mmol/L (22-30); Chloride 109 mmol/L (98-107); Estimated Creatinine Clearance 59 ml/min; Glucose 93 mg/dl (70-99); Magnesium 1.1 mg/dl (1.6-2.3); Potassium 4.1 mmol/L (3.5-5.1); Sodium 142 mmol/L (135-145); Total Protein 6.2 g/dl (6.3-8.2); eGFR > 60.00
[2024-12-21 08:54] LABS: Troponin I 0.014 ng/ml
--- NOTE | 2024-12-21 09:24 | ED.GENMED ---
History of Present Illness
General
Chief Complaint: Chest Pain
Source: patient
Time Seen by Provider: 12/21/24 06:11
History of Present Illness
History of Present Illness:
Note:
CHIEF COMPLAINT(S)
Shortness of breath and chest pain.
HISTORY OF PRESENT ILLNESS
The patient is a 69-year-old male presenting with shortness of breath and chest pain. The symptoms commenced around 3 a.m. the previous day. The shortness of breath makes the patient feel as though they need to take deep breaths to get enough air.
The chest pain, described as severe, began simultaneously and persisted until the patient was brought to the medical facility. The pain is located in the left chest area and does not radiate. It is exacerbated by movements such as bending to tie
shoes. The patient has had similar chest pain in the past, related to a previous myocardial infarction for which they received a coronary stent.
PAST MEDICAL AND SURGICAL HISTORY
The patient has a history of a myocardial infarction requiring coronary stenting. Additionally, the patient reports having rheumatoid arthritis from years ago.
ADDITIONAL HISTORY OBTAINED FROM SOURCES OTHER THAN THE PATIENT
The patient was brought to the hospital via EMS, and on arrival, it was noted that they were alert, oriented, and neurologically non-focal.
EXTERNAL RECORDS REVIEWED
External records from a previous hospitalization were reviewed, which indicated the patient had a prior coronary artery stent placement.
CHRONIC MEDICAL CONDITIONS SIGNIFICANTLY AFFECTING CARE
The patients chronic conditions include ischemic heart disease due to a history of myocardial infarction and coronary artery stenting, and rheumatoid arthritis.
REVIEW OF SYSTEMS
- Respiratory: Shortness of breath requiring deep breaths to feel adequately oxygenated.
- Cardiovascular: Chest pain in the left chest, sharp and non-radiating, occurring under certain movements.
- Gastrointestinal: No nausea or vomiting reported.
- Musculoskeletal: Pain exacerbated by certain physical movements.
PHYSICAL EXAM
General: Alert, no acute distress.
Skin: Warm, dry.
Head: Normocephalic, atraumatic.
Neck: Supple, trachea midline.
Eye Ears, nose, mouth and throat: Oral mucosa moist.
Cardiovascular: Systolic ejection murmur noted, normal peripheral perfusion, no edema.
Respiratory: Respirations are non-labored.
Gastrointestinal: Abdomen nondistended, non-tender.
Back: Normal range of motion, normal alignment.
Musculoskeletal: Normal range of motion, normal strength.
Neurological: Alert and oriented to person, place, time, and situation, no focal neurological deficit observed.
Psychiatric: Cooperative, appropriate mood & affect.
PLAN
The plan includes further diagnostic evaluation, reviewing prior medical records to compare current findings, and managing the patients current symptoms of chest pain and shortness of breath.
DIFFERENTIAL DIAGNOSIS
The Differential Diagnosis includes, in no particular order and is not limited to:
1. Acute Coronary Syndrome
2. Angina
3. Pulmonary Embolism
4. Pneumonia
5. Heart Failure
6. Costochondritis
7. Gastroesophageal Reflux Disease (GERD)
8. Musculoskeletal Chest Pain
9. Aortic Dissection
10. Anxiety or Panic Attack
CARE-UPDATE
12/21/24 - 06:29
Reviewed previous records, including cardiac catheterization from December 02, 2024, which indicated early restenosis of OM1 stent, requiring shockwave lithotripsy followed by placement of a new stent. Charge summary from December 08 showed troponin
levels have been trending down. Patient originally admitted on December 01, 2024, for acute non-ST elevation myocardial infarction.
EKG
My independent EKG interpretation is:
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
- Rhythm: Normal sinus rhythm
- Heart rate: 61 bpm
- [place] interval: Normal
- QRS duration: Normal
- QT interval: Normal
- [place]: Normal
- Abnormalities observed: New T-wave inversions noted in inferior leads as well as in V5 and V6
Disposition:
SUMMARY OF ENCOUNTER
The patient, a 69-year-old male, presented to the emergency department with complaints of shortness of breath and chest pain, symptoms that began around 3 a.m. the previous day. Given the patients history of myocardial infarction and coronary
stenting, these symptoms raised concern for a potential recurrence of cardiac issues. An EKG revealed new T-wave inversions compared to previous records, and labs indicated an elevated BNP level, suggesting possible heart failure or volume overload.
Despite a stable troponin trend and normal renal function, the patients cardiac history required cautious management. After discussion with cardiology, it was decided that admission for diuresis with intravenous furosemide (Lasix) and close
monitoring of EKG changes was warranted due to the elevated BNP and subtle EKG changes.
DISPOSITION
Admit
ASSESSMENT
The patient exhibits signs of potential heart failure exacerbation, with elevated BNP and new EKG changes suggesting possible ischemic changes or volume overload despite stable troponin levels.
MANAGEMENT OF THE PATIENTS CARE WAS DISCUSSED WITH
The case was discussed with cardiology and the hospitals regarding management, including the use of intravenous diuretics and the plan for admission.
PLAN
Admit the patient for diuresis with intravenous furosemide and close monitoring of EKG and troponin trends. Continuous cardiac monitoring in a hospital setting is advised to reassess any EKG changes and ensure stable cardiac function.
INDEPENDENT REVIEW OF LABS AND INTERPRETATION OF TESTS
- My independent review of the basic metabolic panel (BMP) is normal renal function with creatinine at 1.2 mg/dL.
- My independent review of cardiac markers is a flat trend in troponin levels with values of 0.015 and 0.014 ng/mL on recheck.
- My independent review of BNP shows elevation, but there are no previous levels for comparison.
- My independent EKG interpretation reveals new T-wave inversions.
- My independent interpretation of the chest x-ray shows no acute process.
ADDITIONAL TESTING AND IMAGING CONSIDERED
Trend troponin and EKG changes for monitoring cardiac status.
MEDICATION RECONCILIATION
Intravenous furosemide (Lasix) was recommended for diuresis upon admission.
MEDICAL DECISION MAKING
- Number and Complexity of Problems Addressed: Chronic conditions affecting care include ischemic heart disease due to a history of myocardial infarction and coronary artery stenting. Differential Diagnosis includes Acute Coronary Syndrome, Heart
Failure, Angina, Pulmonary Embolism, and Pneumonia.
- Data:
- Category 1: Reviewed lab records indicating stable troponin levels and elevated BNP. EKG changes with new T-wave inversions were independently interpreted.
- Category 2: Reviewed external records from previous hospitalization related to myocardial infarction and coronary stenting. Clinical information was obtained from an independent historian, such as the EMS report upon the patients arrival.
- Category 3: Discussed management with the cardiology team and the hospitalist regarding the appropriateness of admission and further management options.
- Risk: Pursued admission due to the complexity and risk of the patients presenting complaints, augmented by underlying cardiac conditions. Dangerous implications of elevated BNP and new EKG changes prompted immediate intervention and
hospitalization for diuresis and cardiac monitoring.
DIAGNOSIS
1. Heart failure with elevated BNP (ICD-10: I50.9)
2. New EKG changes suggestive of ischemia in a patient with a history of coronary artery disease (ICD-10: I25.10)
Past History
Past History
ED Past Medical History: CAD, CVA, GERD, HTN, Hypercholesterolemia, [place], Renal failure (Related to lithium overdose), Valvular disease (Severe aortic stenosis), Psychiatric and Other (Familial tremor)
ED Past Surgical History: Cardiac (PTCA with stent August 2024, repeat stent to first obtuse marginal December 02, 2024), Tonsilectomy and Other (Renal transplant)
Social History
Tobacco: Non-smoker
Alcohol: None
Drug: None
Personal:
Living: [facility]
Employment: Retired
Family History
Family History: Other (Noncontributory)
Phy Exam
Physical Exam
Physical Exam:
.
Scores
Heart Score for Chest Pain Patients
STEMI patient?: Not applicable
Course
Orders/Labs/Results
Orders:
Orders
12/21/24
Electrocardiogram (*1) Stat
Reason for Study: Chest Pain
Comment: DONE NO ORDER ENTERED
12/21/24 05:32
Electrocardiogram (*1) Urgent
Reason for Study: Chest Pain
CXR2 [CR Chest - 2 Views ] Urgent
Comment:
Reason For Exam: shortness of breath
12/21/24 05:33
EKG- Treatment ONCE
12/21/24 05:36
Complete Blood Count/With Diff Urgent
Comprehensive Metabolic Panel Urgent
Magnesium Urgent
NT-proBNP Urgent
Troponin I Urgent
12/21/24 08:16
Troponin I Urgent
12/21/24 09:22
Furosemide [Lasix] 40 mg IV NOW STA
12/21/24 Lunch
Cholesterol Lowering
At Your Request: Full Participation
Does patient need a safe tray?: No
Fluid Restriction: 1500 mL/day (50 oz)
Cholesterol Lowering: Sodium, 2 Gram
12/21/24 10:49
Magnesium Sulfate 2 Gram/50 ml [Magnesium Sulfate] 2 gram in 50 ml IV NOW
12/21/24 12:15
Admit/Transfer Patient As Directed
Co-Sign Provider:
Level of Care: Inpatient admission
Assign to:: Telemetry
Physician / Group: Zhen Mccullough - [facility]
Diagnosis: acute CHF, chest pain
Reason for Telemetry: Acute Heart Failure
Date to Stop Telemetry: 12/24/24
Time to Stop Telemetry: 11:00
Reason for Hospitalization: IV Lasix
Expected length of stay greater than two midnights?: Yes
ELOS- Estimated Length of Stay in days: 2
I certify the patient meets the requirements for IP care: Yes
PRN Pain Medication Management As Directed
May give lesser potent ordered pain med per pt: Yes
preference::
Protocol:: Medication orders for pain may be administered in a
manner that supports deferring to patient preference
when the pt is:
- Requesting an ordered lesser potent pain medication.
Least to most potent pain medications are defined
as: acetaminophen < NSAID < tramadol < opioids
(morphine, oxycodone, hydromorphone).
- Requesting a lesser dose of the same medication IF
ORDERED.
- Requesting a less intrusive route of administration
if both routes are prescribed by the provider (PO <
IV).
12/21/24 12:17
Code Status As Directed
Resuscitation Status: Full Code
12/21/24 12:20
HF DIETARY CONSULT Routine
HF EDUCATOR CONSULT Routine
Comment:
12/21/24 14:56
Acetaminophen [Tylenol] 650 mg PO Q4HPRN PRN
Bisacodyl [Dulcolax] 10 mg RECTAL [id number] PRN
Docusate W/Senna [Senokot-S] 1 tablet PO BIDPRN PRN
Ondansetron Injectable [Zofran] 4 mg IV Q6HPRN PRN
Polyethylene Glycol Powder [Miralax] 17 grams PO DAILYPRN PRN
Tacrolimus [Prograf] 1.5 mg PO Q12H
12/21/24 14:56
CARDIOLOGY CONSULT Routine
Consulting Provider: [place]
Was physician already notified: Yes
Activity As Directed
Activity Level: As Tolerated
Intake/ Output As Directed
Frequency: q12h
Vital Signs As Directed
Frequency: Per unit guidelines
Weight As Directed
Frequency: Daily
Rx Incentive Spirometry [RESP] Routine
Frequency: q1h while awake
Ot Eval And Treat Routine
Pt Eval And Treat Routine
Activity Level: As Tolerated
DX Deep Vein Thrombosis Video Routine
12/21/24 16:00
Magnesium Routine
12/21/24 18:00
Pregabalin [Lyrica] 50 mg PO QPM
12/21/24 20:00
Heparin 5,000 units SC Q12
Mycophenolic Acid Dr [Myfortic Delayed Rel.] 540 mg PO BID
Ticagrelor [Brilinta] 90 mg PO BID
cinacalcet 90 mg PO BID
magnesium oxide 400 mg PO BID
12/21/24 22:00
Clonazepam [Klonopin] 0.5 mg PO HS
Melatonin 3 mg PO HS
lamotrigine 400 mg PO HS
12/22/24 06:00
Basic Metabolic Panel IN AM
Complete Blood Count/No Diff IN AM
Magnesium IN AM
Tacrolimus (Prograft - FK506) [S] IN AM
12/22/24 08:00
Aspirin Low Dose EC [Aspir Low (Enteric Coated)] 81 mg PO DAILY
Atorvastatin [Lipitor] 20 mg PO DAILY
Cholecalciferol (Vitamin D3) [VITAMIN D3 (cholecalciferol)] 50 mcg PO DAILY
Fludrocortisone Acetate [Florinef] 0.1 mg PO DAILY
Metoprolol Xl [Toprol Xl] 12.5 mg PO DAILY
Pantoprazole [Protonix] 40 mg PO DAILY
lurasidone [Latuda] 60 mg PO DAILY
12/23/24 06:00
Basic Metabolic Panel IN AM
Complete Blood Count/No Diff IN AM
12/24/24 06:00
Basic Metabolic Panel IN AM
Complete Blood Count/No Diff IN AM
12/24/24 11:00
DC Protocol for Telemetry ONCE
Abnormal Lab Results
12/21/24
05:36
RBC 4.14 L 10^6/uL
(4.70-6.10)
Hgb 11.8 L g/dL
(13.0-18.0)
Hct 36.1 L %
(39.0-52.0)
MCHC 32.7 L g/dL
(33.0-37.0)
Abs Immat Gran (auto) 0.1 H 10^3/uL
(0-0.05)
Absolute Monos (auto) 1.3 H 10^3/uL
(0.1-0.6)
Immature Gran % 0.7 H %
(0-0.5)
Monocytes % 14.5 H %
(1.7-9.3)
Chloride 109 H mmol/L
(98-107)
Carbon Dioxide 21 L mmol/L
(22-30)
BUN 28 H mg/dl
(9-20)
Calcium 7.9 L mg/dl
(8.4-10.2)
Magnesium 1.1 L mg/dl
(1.6-2.3)
Total Protein 6.2 L g/dl
(6.3-8.2)
12/21/24 05:36
12/21/24 05:36
Vital Signs
Initial and Last Documented VS:
Initial Vital Signs
BP
123/62
12/21/24 05:33
Last Documented Vital Signs
Temp Pulse Resp BP Pulse Ox
98.5 F 53 16 113/58 97
12/21/24 12:42 12/21/24 13:45 12/21/24 13:45 12/21/24 13:20 12/21/24 13:30
*Pulse Oximetry
SaO2: 99
Oxygen Mode of Delivery: Room air
Patient hypoxic: no
*Design Drafter Chief Interpretation
Rate: normal
Interpretation: normal
Rhythm: sinus
*Critical Care Note
Total Time (30-74mins, 75-104mins- exclusive of procedures): Not Applicable
ED Attending Note
-
Portions of this chart may have been created with voice recognition software.� Occasional wrong word or��sound alike� substitutions may have occurred due to the inherent limitations of voice recognition software.
Discharge Plan
Departure
Patient Disposition: Admit
Date of Disposition: 12/21/24
Time of Disposition: 09:24
Admit to: Telemetry
Presentation/result/management discussed w/ accepting MD/DO: Hospitalist
Discharge Problem:
Abnormal ECG, Dyspnea, CHF (congestive heart failure)
Interventions
Interventions:
*Risk Screen - Suicide Last Done: 12/21/24 05:38
*General Assessment Last Done: 12/21/24 05:38
*Neglect/Abuse Screening Last Done: 12/21/24 05:38
*ED- Fall Risk Assessment Last Done: 12/21/24 05:38
*ED COVID-19 Vaccine History Last Done: 12/21/24 05:38
*Nursing Disposition Last Done: 12/21/24 13:59
ED- Cardiac Assessment Last Done: 12/21/24 05:38
Discharge Date and Time
Discharge Date/Time: 12/21/24 14:43
--- NOTE | 2024-12-21 10:00 | CON.CAR ---
Consultation
Consultation Request
Date/Time Consultation Requested: 12/21/24
Date/Time Consultation Performed: 12/21/24
Requesting Provider: Dr. Corona
Performing Provider: Dr. River
Reason for Consultation: Chest pain/shortness of breath
Medical History
-
Chief Complaint: Chest pain
History of Present Illness:
I had the pleasure to meet David Joseph in ED bed 11 at the request of Dr. Corona. David is a medically complex 69-year-old man with aortic stenosis currently undergoing evaluation for TAVR under Dr. Rojas at the [facility]
[Appointment January 02], also with history of renal transplant for lithium toxicity and bipolar disorder. He had received an OM drug-eluting stent at [place] by Dr. Gar in the spring 2024 and was admitted to [facility] on November "" with a non-ST segment elevation NM with a peak troponin of 0.842. Cardiac catheterization revealed in-stent restenosis of the OM stent with underexpansion in the proximal portion of the stent. He underwent shockwave lithotripsy and placement of
a 3.5 mm Anthony stents. His post-procedural course was complicated by a pseudoaneurysm of the left groin that required a thrombin injection for resolution. He has been maintained on uninterrupted aspirin and Brilinta.
.
He is a long-term resident at [facility]. He reports 2 weeks of worsening shortness of breath worse when he lays down causing him to sit up. He reports last night he had a heavier, salt rich meal and had worsening symptoms
with chest heaviness. He reports chest discomfort is different than when he presented with his NM which he described as a sharp pain. He was seen by a nurse practitioner for Dr. Petit on ; no changes made to medical therapy. He has an
upcoming appointment with Dr. Morejon later this month with a repeat echocardiogram. He was seen back in the hospital for chest pain and flat troponins discharged on 12/10/2024 with the addition of metoprolol. In the ED he continues to complain of 1 out
of 10 chest discomfort however states that he presented for the complaint of shortness of breath. Denies palpitations, lightheadedness or syncope. Denies fever/chills. No sick contacts or COVID exposure. No wheezes or cough. He states that he
weighs himself weekly and weights have been stable; denies lower extremity edema. ER workup reviewed: WBC 8.8, WBC 11.8 and stable, platelets 193,000. BUN and creatinine 28/1.2. Sodium potassium 142/4.1. LFTs within normal limits. Magnesium is
1.1. Troponin 0.015 and 0.014. proBNP 6950. Tacrolimus level 12/01/2024 was 10.5. Chest x-ray this admission with no acute disease or evidence of pleural effusions. Reviewed left heart catheterization from 12/02/2024. Pulmonary capillary wedge
pressure was 25. Cardiac output/index 7/3.5.
Past Medical History
Past Medical History: CAD, HTN, Hypercholesterolemia, Renal Failure (As a result of lithium toxicity status post, status post renal transplant, creatinine at admission is 1.3, had been 1.1 on December 01 a), Valvular Disease (Aortic stenosis,
currently undergoing evaluation for TAVR at the [facility]), Psychiatric (Bipolar, previously on lithium) and Other (Hyperparathyroidism, peripheral neuropathy, constipation, familial tremor)
Past Surgical History: Other (Right upper extremity AV fistula, patent)
Social History
Tobacco: Non-Smoker
Alcohol: None
Drug: None
Personal: Single
Living: Long Term
Employment: Disabled
Family History
Family History: Reviewed & Not Pertinent
Allergies / Home Medications
Allergy/AdvReac Type Severity Reaction Status Date / Time
No Known Allergies Allergy Verified 12/08/24 02:19
�Medication �Instructions �Recorded �Confirmed �Type
acetaminophen 325 mg tablet 650 mg PO Q4HPRN PRN MILD PAIN 12/01/24 12/21/24 History
(Tylenol)
aspirin 81 mg tablet,delayed 81 mg PO DAILY Blood Clot 12/01/24 12/21/24 History
release Prevention/Tx
cholecalciferol (vitamin D3) 50 50 mcg PO DAILY Supplement 12/01/24 12/21/24 History
mcg (2,000 unit) tablet (Vitamin
D3)
cinacalcet 90 mg tablet 90 mg PO BID Kidney Disease 12/01/24 12/21/24 History
clonazepam 0.5 mg tablet (Klonopin) 0.5 mg PO HS Mental Health/Anxiety 12/01/24 12/21/24 History
fludrocortisone 0.1 mg tablet 0.1 mg PO DAILY Anti-Inflammatory 12/01/24 12/21/24 History
lamotrigine 200 mg tablet 400 mg PO HS Mental Health/Anxiety 12/01/24 12/21/24 History
lurasidone 60 mg tablet (Latuda) 60 mg PO DAILY Mental 12/01/24 12/21/24 History
Health/Anxiety
magnesium oxide 400 mg PO BID Supplement 12/01/24 12/21/24 History
melatonin 3 mg tablet 3 mg PO HS Sleep 12/01/24 12/21/24 History
mycophenolate sodium 180 mg 540 mg PO BID Transplant 12/01/24 12/21/24 History
tablet,delayed release (Myfortic)
pregabalin 50 mg capsule (Lyrica) 50 mg PO QPM Neurological Condition 12/01/24 12/21/24 History
tacrolimus 0.5 mg capsule, 1.5 mg PO Q12H Transplant 12/01/24 12/21/24 History
immediate-release (Prograf)
ticagrelor 90 mg tablet (Brilinta) 90 mg PO BID Blood Clot 12/01/24 12/21/24 History
Prevention/Tx
atorvastatin 20 mg tablet 20 mg PO QPM #30 tabs 12/06/24 12/21/24 Rx
magnesium citrate (Citrate of 150 ml PO DAILY #2,960 mL 12/06/24 12/21/24 Rx
Magnesia oral)
metoprolol succinate 25 mg 12.5 mg (1/2 x 25 mg) PO HS #30 12/10/24 12/21/24 Rx
tablet,extended release 24 hr tabs
pantoprazole 40 mg tablet,delayed 40 mg PO DAILY #30 tabs 12/10/24 12/21/24 Rx
release
Review of Systems
-
History Source: Patient and Physician
All other systems: Negative unless noted
Constitutional: Fatigue and Sleep Disturbance
EENT: No Symptoms
Respiratory: Trouble Breathing
Cardiac: Chest Pain
Abdomen/GI: No Symptoms
: No Symptoms
Musculoskeletal: No Symptoms
Skin: No Symptoms
Neurological: No Symptoms
Endocrine: No Symptoms
Hematologic/Lymphatic: No Symptoms
Physical Exam
Vital Signs
Temp Pulse Resp BP Pulse Ox
98.4 F 73 16 123/62 99
12/21/24 05:38 12/21/24 05:38 12/21/24 05:38 12/21/24 05:38 12/21/24 09:26
Lab Results
12/21/24 05:36
12/21/24 05:36
Troponin I 0.014 ng/ml 12/21/24 08:16
Isr-Q-Roshbehfgzr Pept 6950 pg/ml 12/21/24 05:36
Physical Exam
General: Well Developed, Well Nourished, No Apparent Distress, Comfortable and Other (99% on room air); Negative Respiratory Distress
HEENT: Normocephalic, Anicteric and Moist Mucous Membranes
Respiratory: Other (Clear to auscultation without wheezes or rhonchi)
Cardiac: S1/S2, Regular Rhythm and Murmur (3/6 harsh systolic murmur throughout precordium)
GI: Soft, Non Tender and Normal Bowel Sounds
Musculoskeletal: No Edema
Neuro: AO x 3, Nonfocal/Grossly Intact and Other (Tremor noted; patient states he has a history of essential tremor )
Psych: Calm
Impression / Plan
-
PCP: Dr. Francisco Kearns
Cardiology: Previously followed with Dr. Bill Petit at [facility] [phone], now follows with Dr. Salvador Rojas at [place] [phone]
Impression:
Shortness of breath/orthopnea
Atypical chest pain
Known multivessel coronary artery disease with recent non-STEMI 12/01/2024 status post OM1 PCI for in-stent restenosis
OM1 PCI July 2024
Remote PCI details and exact date unknown 2009
s/p PCI of OM-1 at [facility] 08/08/24
Severe being evaluated for TAVR are at [place]
Patient is not currently scheduled for TAVR
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
Bipolar disorder
Hypertension
Hyperlipidemia
Right upper extremity fistula
Familiar tremor
Echo 07/10/2023: AMH study, EF 60 to 65%, normal RV size and function, no MR/MS, moderate to severe with peak/mean 67/39 mmHg and DESHAWN 0.8 cm sq
Echo 12/02/2024: EF 59%, mild concentric LVH, normal RV size and function, severe mean gradient 39 mmHg
[facility] 08/08/2024: [facility] study, diffuse calcific CAD with FFR positive stenosis in the proximal OM, s/p TUNG to OM-1, severely calcified up to 60% stenosis in the RCA luminal irregularities in the LM, calcified proximal and distal up to 40% plaque in the LAD
[facility] 12/02/2024: Stent in the OM1 has a hazy 95% restenotic segment, s/p shockwave lithotripsy of in-stent restenosis and then 3.5 mm Anthony TUNG, RCA is small and diffusely diseased, LM normal with minor distal tapering, LAD with 40 to 50% proximal
stenosis and the remainder has minor irregularities.
HEMODYNAMICS : mmHg
RA (m) : 12
RV (s/d) : 36/10, 16
PA (s/d, m) : 36/17, 25
PCWP (m) : 25
AO (s/d, m) : 119/63, 85
Cardiac Output: 7.1 L / min and Cardiac Index: 3.5 L/ min / m-2
Plan:
Patient returned with 2 weeks of orthopnea/PND and worsening shortness of breath in addition to atypical chest discomfort
-Troponins not elevated and flat; do not suspect ACS.
-Do not suspect infectious etiology
-proBNP elevated along with symptoms and cath findings with increased wedge pressure concerning for mild heart failure with preserved ejection fraction
-Will give a dose of IV Lasix 40 mg x 1
-Anticipate will discharge on Lasix 20 mg once daily
-Close monitoring of renal function given history of transplant
-Magnesium 1.1�ER will order mag rider. Please repeat magnesium later today. Keep magnesium greater than 2
Coronary artery disease with recent non-STEMI secondary to early in-stent restenosis of OM1 status post shockwave lithotripsy and 3.5 mm [place] TUNG 12/02/2024
- Continue uninterrupted aspirin and Brilinta
-EKG with T wave inversions which are new however Troponins flat; do not suspect ACS
-Continue aggressive medical therapy
Severe aortic stenosis undergoing evaluation for TAVR at [facility]
-He has follow up with Dr. Rojas of [place] scheduled 01/02 for both echo at 11AM and consult at 1:30PM.
Anticipate discharge to his nursing facility in the next 24-48 hours
Data Reviewed
-
EKG: Tracing Personally Visualized and interpreted
Radiology: Report Reviewed by me
Medical Tests (Nuc Med, Echo etc): Report Reviewed by me
Labs: Labs Reviewed by me
Old Records: Reviewed
[2024-12-21] MEDS: LASIX 40 MG IV (10:32)
--- NOTE | 2024-12-21 12:04 | HPS.HSE ---
Family Physician
-
Family Physician: Francisco Kearns
Chief Complaint
-
chest pain
History of Present Illness
69 y/o M, hx of CAD, HTN, HLD, s/p renal transplant, (planned TAVR evaluation), bipolar d/o, familial tremor presents to ER for 2 weeks of worsening SOB when laying flat along with chest heaviness. He admits to having higher salt food recently.
The chest discomfort is different than his prior [place] - described as sharp pain. No other complaints.
He was seen in hospital 12/10 with chest pain - flat trops and BB was added.
Had a cardiac stent spring 2024 ([place]) and was admitted late November in with NSTEMI requiring cath showing in-stent restenosis of the OM stent with underexpansion in the proximal portion of the stent. He underwent shockwave lithotripsy and
placement of a 3.5 mm Anthony stents. He takes ASA and Brillinta.
Medical History
Past Medical History
Past Medical History: Reports Other
Additional Past Medical History:
Coronary Artery Disease s/p Stent x 2
Moderate / Severe Aortic Stenosis
Essential Hypertension
Hyperlipidemia
Renal Transplant
Hyperparathyroidism
Anxiety / Bipolar Disorder
Essential Tremor
Peripheral Neuropathy
Past Surgical History: Reports Other
Additional Past Surgical History:
Kidney Transplant
Cardiac Stent
Social History
Tobacco: Non-smoker
Alcohol: None
Drug: None
Living: Penitentiary
Employment: Disabled
Family History
Family History: Not pertinent
Allergies / Home Medications
Allergies reflects when Allergies were last updated in [employer].
Home Medications with original date entered in [employer]
Allergy/Medication List:
Allergies
Allergy/AdvReac Type Severity Reaction Status Date / Time
No Known Allergies Allergy Verified 12/08/24 02:19
Home Medications
acetaminophen 325 mg tablet (Tylenol) 650 mg PO Q4HPRN PRN MILD PAIN 12/01/24
aspirin 81 mg tablet,delayed release 81 mg PO DAILY Blood Clot Prevention/Tx 12/01/24
cholecalciferol (vitamin D3) 50 mcg (2,000 unit) tablet (Vitamin D3) 50 mcg PO DAILY Supplement 12/01/24
cinacalcet 90 mg tablet 90 mg PO BID Kidney Disease 12/01/24
clonazepam 0.5 mg tablet (Klonopin) 0.5 mg PO HS Mental Health/Anxiety 12/01/24
fludrocortisone 0.1 mg tablet 0.1 mg PO DAILY Anti-Inflammatory 12/01/24
lamotrigine 200 mg tablet 400 mg PO HS Mental Health/Anxiety 12/01/24
lurasidone 60 mg tablet (Latuda) 60 mg PO DAILY Mental Health/Anxiety 12/01/24
magnesium oxide 400 mg PO BID Supplement 12/01/24
melatonin 3 mg tablet 3 mg PO HS Sleep 12/01/24
mycophenolate sodium 180 mg tablet,delayed release (Myfortic) 540 mg PO BID Transplant 12/01/24
pregabalin 50 mg capsule (Lyrica) 50 mg PO QPM Neurological Condition 12/01/24
tacrolimus 0.5 mg capsule, immediate-release (Prograf) 1.5 mg PO Q12H Transplant 12/01/24
ticagrelor 90 mg tablet (Brilinta) 90 mg PO BID Blood Clot Prevention/Tx 12/01/24
magnesium citrate (Citrate of Magnesia oral) 150 ml PO DAILY #2,960 mL 12/06/24
pantoprazole 40 mg tablet,delayed release 40 mg PO DAILY #30 tabs 12/10/24
atorvastatin 20 mg tablet 20 mg PO DAILY 12/21/24
bisacodyl 10 mg rectal suppository (Dulcolax (bisacodyl)) 10 mg [place] DAILYPRN PRN if no bm on 4th day give on day 5 12/21/24
magnesium hydroxide 400 mg/5 mL oral suspension (Milk of Magnesia) 2,400 mg PO [id number] PRN if no bm by 3rd day give on day 4 12/21/24
metoprolol succinate 25 mg tablet,extended release 24 hr 12.5 mg PO DAILY 12/21/24
sodium phosphates 19 gram-7 gram/118 mL enema (Fleet Enema) 118 ml [place] DAILYPRN PRN if no bm by 5th day give on day 6 12/21/24
Review of Systems
-
A 12 point ROS was completed and negative except as noted: Yes
Physical Exam
Vital Signs
Vital Signs
Temp Pulse Resp BP Pulse Ox
98.4 F 58 20 119/65 98
12/21/24 05:38 12/21/24 10:46 12/21/24 10:46 12/21/24 10:46 12/21/24 10:46
Physical Exam
General: No Apparent Distress
HEENT: NormoCephalic and Anicteric
Respiratory: Clear
Cardiac: S1/S2
Neuro: AO x 3 and Tremors
Psych: Calm
Laboratory Results
-
12/21/24 05:36
12/21/24 05:36
Laboratory Results
Total Bilirubin 0.6 mg/dl (0.2-1.3) 12/21/24 05:36
AST 23 U/L (17-59) 12/21/24 05:36
ALT 21 U/L (0-50) 12/21/24 05:36
Alkaline Phosphatase 117 U/L (38-126) 12/21/24 05:36
Troponin I 0.014 ng/ml 12/21/24 08:16
Data Reviewed
-
Lab Data: Labs Reviewed by me
Impression/Plan
-
Assessment:
Shortness of breath/orthopnea suspected acute HFpEF
- Echo 12/02/2024: EF 59%, mild concentric LVH, normal RV size and function, severe mean gradient 39 mmHg
- elevated pro-BNP
- IV Lasix x 1 today; reassess in AM for further dosing (has history of )
- follow I/Os, weights, lytes
Chest pain, atypical
Hx of multivessel CAD s/p stent spring 2024 with recent non-STEMI 12/01/2024 status post OM1 PCI for in-stent restenosis
- trend trops; no suspicion of ACS currently
- continue ASA/Brilinta/BB/Statin
Hypomagnesemia
- repleted in ER; repeat level at 4pm today
Pseudoaneurysm requiring thrombin injection during 12/01 admission
Severe aortic stenosis undergoing evaluation for TAVR at [facility]
- Dr. Rojas of [place] scheduled 01/02 for both echo at 11AM and consult at 1:30PM.
Bipolar disorder
- continue Klonopin/Latuda/Lamotrigine
Essential Hypertension
Hyperlipidemia
Hx ESRD s/p of renal transplant
- continue Tacrolimus - check AM level
- continue Mycophenolate
- continue Sensipar for secondary hyperparathyroidism
- avoid nephrotoxins
orthostatic hypotension
- continue fludrocortisone
Familiar tremor
- Lyrica
DVT ppx: SC Heparin
Code: Full
[2024-12-21] MEDS: MAGNESIUM SULFATE 50 IV (12:57)
--- NOTE | 2024-12-21 13:58 | EDRN ---
this RN called the receiving unit and notified them that paper report was going to be tubed up
[2024-12-21] MEDS: PROGRAF 1.5 MG PO (16:22)
[2024-12-21] MEDS: LYRICA 50 MG PO (17:22)
[2024-12-21] MEDS: BRILINTA 90 MG PO (21:07)
[2024-12-21] MEDS: HEPARIN 5000 UNITS SC (21:07)
[2024-12-21] MEDS: MAGNESIUM OXIDE 400 MG PO (21:07)
[2024-12-21] MEDS: MYFORTIC DELAYED REL. 540 MG PO (21:08)
[2024-12-21] MEDS: SENSIPAR 90 MG PO (21:08)
[2024-12-22] MEDS: KLONOPIN 0.5 MG PO (00:32)
[2024-12-22] MEDS: LAMICTAL 400 MG PO (00:32)
[2024-12-22] MEDS: MELATONIN 3 MG PO (00:32)
[2024-12-22] MEDS: PROGRAF PO (02:15)
[2024-12-22 03:50] VITALS: BP 117/65
[2024-12-22 06:00] VITALS: BMI 26.0
[2024-12-22 07:00] VITALS: BP 121/53
[2024-12-22 08:10] LABS: Hematocrit 35.9 % (39.0-52.0); Hemoglobin 11.8 g/dL (13.0-18.0); Mean Corp Hgb Conc. 32.9 g/dL (33.0-37.0); Mean Corpuscular Volume 85.7 fL (80.0-94.0); Platelet Count 205 10^3/uL (130-400); Red Cell Dist. Width 14.1 % (11.5-14.5)
[2024-12-22 08:28] LABS: Blood Urea Nitrogen 25 mg/dl (9-20); Calcium 8.0 mg/dl (8.4-10.2); Carbon Dioxide 29 mmol/L (22-30); Chloride 106 mmol/L (98-107); Estimated Creatinine Clearance 55 ml/min; Glucose 115 mg/dl (70-99); Magnesium 1.3 mg/dl (1.6-2.3); Potassium 4.1 mmol/L (3.5-5.1); Sodium 143 mmol/L (135-145); eGFR 59.10
[2024-12-22] MEDS: MAGNESIUM OXIDE 400 MG PO (08:30)
[2024-12-22] MEDS: ASPIR LOW (ENTERIC COATED) 81 MG PO (08:30)
[2024-12-22] MEDS: TOPROL XL 12.5 MG PO (08:30)
[2024-12-22] MEDS: FLORINEF 0.1 MG PO (08:30)
[2024-12-22] MEDS: LIPITOR 20 MG PO (08:30)
[2024-12-22] MEDS: BRILINTA 90 MG PO (08:30)
[2024-12-22] MEDS: VITAMIN D3 (cholecalciferol) 50 MCG PO (08:30)
[2024-12-22] MEDS: PROTONIX 40 MG PO (08:30)
[2024-12-22] MEDS: SENSIPAR 90 MG PO (08:31)
[2024-12-22] MEDS: LATUDA 60 MG PO (08:31)
[2024-12-22] MEDS: HEPARIN 5000 UNITS SC (08:31)
[2024-12-22] MEDS: MYFORTIC DELAYED REL. 540 MG PO (08:31)
[2024-12-22 09:39] VITALS: BP 101/54; PULSE 58; O2SAT 98
[2024-12-22 09:41] VITALS: BP 104/51
--- NOTE | 2024-12-22 10:31 | CM ---
Addendum entered by Connie Murphy 12/22/24 16:26:
Patient stable for d/c. Patient agreeable to w/c van transport as he does not qualify medically for an ambulance
Therapy assessed, rec patient to continue w/ cardiac rehab
IMM verbally reviewed, copy provided, copy on chart
[facility]
Report: [phone]

Plan: Return to [facility]
Original Note:
Patient seen bedside, initial assessment completed. Patient is a 69 y/o M, hx of CAD, HTN, HLD, s/p renal transplant, (planned TAVR evaluation), bipolar d/o, familial tremor presents to ER for 2 weeks of worsening SOB when laying flat along with
chest heaviness.
Patient was recently admitted for chest pain (12/08-12/10)
Patient resides at [facility] in assisted living. Patient reports he is independent w/ ambulation, no device required. Patient is independent in ADLs and personal care. Patient is only assisted w/ medication management. Patient completes his own
laundry. No SNF/HC hx. Patient works w/ PT in the facility's gym.
PCP: Francisco Kearns
Pharmacy: [facility]
Plan: Return to [facility] [place]
[2024-12-22] MEDS: MAGNESIUM SULFATE 50 IV (10:39)
[2024-12-22] MEDS: LASIX 20 MG IV (10:42)
[2024-12-22 10:54] VITALS: BP 105/53
--- NOTE | 2024-12-22 13:44 | W.PN.HOSP.TC ---
Today's Communication/Plan
-
Continue diuretics per cardiology
Follow weight and creatinine
Possible discharge in 24 to 48 hours
Assessment / Plan
Assessment / Plan
Shortness of breath/orthopnea suspected acute HFpEF
- Echo 12/02/2024: EF 59%, mild concentric LVH, normal RV size and function, severe mean gradient 39 mmHg
- elevated pro-BNP
- Patient got IV Lasix x1 yesterday, dose repeated by cardiology today
- follow I/Os, weights, lytes
- Cards following and help appreciated.
Chest pain, atypical - resolved
Hx of multivessel CAD s/p stent spring 2024 with recent non-STEMI 12/01/2024 status post OM1 PCI for in-stent restenosis
- neg trops; no suspicion of ACS currently
- continue ASA/Brilinta/BB/Statin
Hypomagnesemia
- repleted in ER; repeat level at 4pm today
Pseudoaneurysm requiring thrombin injection during 12/01 admission
Severe aortic stenosis undergoing evaluation for TAVR at [facility]
- Dr. Rojas of [place] scheduled 01/02 for both echo at 11AM and consult at 1:30PM.
Bipolar disorder
- continue Klonopin/Latuda/Lamotrigine
Essential Hypertension
Hyperlipidemia
Hx ESRD s/p of renal transplant
- continue Tacrolimus - check AM level
- continue Mycophenolate
- continue Sensipar for secondary hyperparathyroidism
- avoid nephrotoxins
orthostatic hypotension
- continue fludrocortisone
Familiar tremor
- Lyrica
DVT ppx: SC Heparin
Code: Full
Anticipated Discharge: 24 - 48 hours
Subjective/Interval History
-
Date of Service: December 22, 2024
Resting comfortably in chair
Denies any chest pain/shortness of breath
No other issues reported
Objective Data
-
Labs:
Laboratory Results
12/22/24
07:41
WBC 7.7
Hgb 11.8 L
Hct 35.9 L
Plt Count 205
Sodium 143
Potassium 4.1
Chloride 106
Carbon Dioxide 29
BUN 25 H
Creatinine 1.3
Glucose 115 H
Calcium 8.0 L
Vital Signs:
Vital Signs
Temp Pulse Resp BP Pulse Ox
98.7 F 57 12 105/53 96
12/22/24 10:54 12/22/24 10:54 12/22/24 10:54 12/22/24 10:54 12/22/24 10:54
I&O
12/21/24 12/22/24 12/23/24
06:59 06:59 06:59
Intake Total 720 / 720
Balance 720 / 720
Review of Systems
-
Respiratory: Reports No Symptoms
Cardiac: Reports No Symptoms
Abdomen/GI: Reports No Symptoms
Physical Exam
-
General: No Apparent Distress
HEENT: PERRLA
Respiratory: Clear to Auscultation; Negative Wheezes
Cardiac: Regular Rhythm and S1/S2
GI: Soft and Nontender
Musculoskeletal: No Edema
Skin: Warm and Dry; Negative Rash
Neuro: AO x 3
Psych: Calm
[2024-12-22] MEDS: PROGRAF 1.5 MG PO (14:33)
[2024-12-22 15:00] VITALS: BP 102/57
--- NOTE | 2024-12-22 17:39 | W.PN.CARDCBS ---
Today's Communication / Plan
-
Stable for discharge home
Will add Lasix 20 mg once daily
Patient has follow-up appointment with his velvet steamer tomorrow
Impression / Plan
-
PCP: Dr. Francisco Kearns
Cardiology: Previously followed with Dr. Bill Petit at [facility] [phone], now follows with Dr. Salvador Rojas at [place] [phone]
Impression:
Shortness of breath/orthopnea
Atypical chest pain
Known multivessel coronary artery disease with recent non-STEMI 12/01/2024 status post OM1 PCI for in-stent restenosis
OM1 PCI July 2024
Remote PCI details and exact date unknown 2009
s/p PCI of OM-1 at [facility] 08/08/24
Severe being evaluated for TAVR are at [place]
Patient is not currently scheduled for TAVR
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
Bipolar disorder
Hypertension
Hyperlipidemia
Right upper extremity fistula
Familiar tremor
Echo 07/10/2023: AMH study, EF 60 to 65%, normal RV size and function, no MR/MS, moderate to severe with peak/mean 67/39 mmHg and DESHAWN 0.8 cm sq
Echo 12/02/2024: EF 59%, mild concentric LVH, normal RV size and function, severe mean gradient 39 mmHg
[facility] 08/08/2024: AMH study, diffuse calcific CAD with FFR positive stenosis in the proximal OM, s/p TUNG to OM-1, severely calcified up to 60% stenosis in the RCA luminal irregularities in the LM, calcified proximal and distal up to 40% plaque in the LAD
[facility] 12/02/2024: Stent in the OM1 has a hazy 95% restenotic segment, s/p shockwave lithotripsy of in-stent restenosis and then 3.5 mm Anthony TUNG, RCA is small and diffusely diseased, LM normal with minor distal tapering, LAD with 40 to 50% proximal
stenosis and the remainder has minor irregularities.
HEMODYNAMICS : mmHg
RA (m) : 12
RV (s/d) : 36/10, 16
PA (s/d, m) : 36/17, 25
PCWP (m) : 25
AO (s/d, m) : 119/63, 85
Cardiac Output: 7.1 L / min and Cardiac Index: 3.5 L/ min / m-2
Plan:
Heart failure with preserved ejection fraction with severe aortic stenosis
-Troponins not elevated and flat; do not suspect ACS.
-Do not suspect infectious etiology
-proBNP elevated along with symptoms and cath findings with increased wedge pressure concerning for mild heart failure with preserved ejection fraction
-Patient responded well to 2 doses of IV Lasix
- Will discharge on Lasix 20 mg once daily
-Close monitoring of renal function given history of transplant also monitor magnesium
- Magnesium rider ordered for magnesium of 1.3.
Coronary artery disease with recent non-STEMI secondary to early in-stent restenosis of OM1 status post shockwave lithotripsy and 3.5 mm [place] TUNG 12/02/2024
- Continue uninterrupted aspirin and Brilinta
-EKG with T wave inversions which are new however Troponins flat; do not suspect ACS
-Continue aggressive medical therapy
Severe aortic stenosis undergoing evaluation for TAVR at [facility]
-He has follow up with Dr. Rojas of [place] scheduled 01/02 for both echo at 11AM and consult at 1:30PM.
Patient has contacted his outpatient velvet steamer at [facility] and will be seen tomorrow. Further discussion on diuretics pending eventual TAVR to be determined by his outpatient velvet steamer.
Stable for discharge
Progress Note - [employer] Att[employer]
Subjective
Date of Service: December 22, 2024
Seen and examined. Lying flat and reports that he had no orthopnea or shortness of breath at night; feeling better. Patient contacted his outpatient velvet steamer and has an appointment tomorrow.
Objective
Labs:
12/22/24 07:41
12/22/24 07:41
Labs
Hgb 11.8 g/dL (13.0-18.0) L 12/22/24 07:41
Hct 35.9 % (39.0-52.0) L 12/22/24 07:41
Plt Count 205 10^3/uL (130-400) 12/22/24 07:41
Sodium 143 mmol/L (135-145) 12/22/24 07:41
Potassium 4.1 mmol/L (3.5-5.1) 12/22/24 07:41
BUN 25 mg/dl (9-20) H 12/22/24 07:41
Creatinine 1.3 mg/dL (0.7-1.3) 12/22/24 07:41
Glucose 115 mg/dl (70-99) H 12/22/24 07:41
Troponins
12/21/24 12/21/24
05:36 08:16
Troponin I 0.015 0.014
Vital Signs and I&O:
Vital Signs
Temp Pulse Resp BP Pulse Ox
98.2 F 62 16 102/57 95
12/22/24 15:00 12/22/24 15:00 12/22/24 15:00 12/22/24 15:00 12/22/24 15:00
Vital Signs
Temp Pulse Resp BP Pulse Ox
98.2 F 62 16 102/57 95
12/22/24 15:00 12/22/24 15:00 12/22/24 15:00 12/22/24 15:00 12/22/24 15:00
Intake & Output
12/20/24 12/21/24 12/22/24 12/23/24
06:59 06:59 06:59 06:59
Intake Total 720 / 720
Balance 720 / 720
Physical Exam
Physical Exam
GEN: No distress, awake, alert, oriented x3. Tremor
HEENT: supple, anicteric, mmm, EOMI
LUNGS: CTA bilaterally, no wheezes/rales
CV: Reg, S1/S2, 3/6 syst LSB
ABD: soft, BS+, NT/ND
EXT: No cyanosis, clubbing, edema
NEURO: Gross non-focal
SKIN: Warm, pink, dry. No rash. Fistula RUE
== END 2024-12-22 17:45 | disposition home or self-care (01) | DRG 280 ==
LOC: 4 EAST ACU 12:39
PROVIDERS: ADMITTING PHYSICIAN Internal Medicine; ATTENDING PHYSICIAN Hospitalist; CONSULT PHYSICIAN Internal Medicine Cardiovascular Disease; EMERGENCY PHYSICIAN Emergency Medicine; FAMILY PHYSICIAN Internal Medicine Geriatric Medicine
DX: I11.0 Hypertensive heart disease with heart failure (principal); I50.31 Acute diastolic (congestive) heart failure; I21.4 Non-ST elevation (NSTEMI) myocardial infarction; Z94.0 Kidney transplant status; N25.81 Secondary hyperparathyroidism of renal origin; M06.9 Rheumatoid arthritis, unspecified; F31.9 Bipolar disorder, unspecified; I35.0 Nonrheumatic aortic (valve) stenosis; G62.9 Polyneuropathy, unspecified; E83.42 Hypomagnesemia; I95.1 Orthostatic hypotension; G25.0 Essential tremor; K59.00 Constipation, unspecified; I25.10 Atherosclerotic heart disease of native coronary artery without angina pectoris; E78.00 Pure hypercholesterolemia, unspecified; K21.9 Gastro-esophageal reflux disease without esophagitis; Z95.5 Presence of coronary angioplasty implant and graft; Z79.82 Long term (current) use of aspirin; Z79.02 Long term (current) use of antithrombotics/antiplatelets; Z79.621 Long term (current) use of calcineurin inhibitor; Z79.624 Long term (current) use of inhibitors of nucleotide synthesis
CPT/HCPCS: 71046; 80048; 80053; 80197; 83735; 83880; 84484; 85025; 85027; 87070; 93005; 96365; 96366; 96375; 97162; 97166; 99285

== ENCOUNTER 2025-01-02 09:13 | Emergency (ER) | payer MEDICARE, BC, SELFPAY ==
[2025-01-02 09:22] VITALS: BP 117/45; BMI 26.4
[2025-01-02 09:28] LABS: Hematocrit 36.4 % (39.0-52.0); Hemoglobin 11.8 g/dL (13.0-18.0); Mean Corp Hgb Conc. 32.4 g/dL (33.0-37.0); Mean Corpuscular Volume 85.8 fL (80.0-94.0); Nucleated Red Blood Cells % 0 % (-); Platelet Count 137 10^3/uL (130-400); Red Cell Dist. Width 14.2 % (11.5-14.5)
[2025-01-02 09:41] LABS: ALT (SGPT) 19 U/L (0-50); AST (SGOT) 20 U/L (17-59); Albumin 4.2 g/dl (3.5-5.0); Alkaline Phosphatase 98 U/L (38-126); Blood Urea Nitrogen 31 mg/dl (9-20); Calcium 9.1 mg/dl (8.4-10.2); Carbon Dioxide 27 mmol/L (22-30); Chloride 105 mmol/L (98-107); Estimated Creatinine Clearance 59 ml/min; Glucose 119 mg/dl (70-99); Magnesium 1.3 mg/dl (1.6-2.3); Potassium 4.1 mmol/L (3.5-5.1); Sodium 140 mmol/L (135-145); Total Protein 6.4 g/dl (6.3-8.2); eGFR > 60.00
[2025-01-02 09:52] LABS: Troponin I 0.015 ng/ml
--- NOTE | 2025-01-02 09:55 | ED.GENMED ---
History of Present Illness
General
Chief Complaint: Weakness
Source: patient and records
Time Seen by Provider: 01/02/25 09:34
History of Present Illness
History of Present Illness:
69-year-old male with past medical history of recent NSTEMI in November, hypertension, hyperlipidemia, severe aortic stenosis (scheduled to undergo TAVR at the [facility] on January 19), CKD presenting to the ER via EMS from the
[facility] after it was noticed he had some increased weakness and tremors worse than baseline, patient noting to me that yesterday he felt lightheaded and diaphoretic for about 30 minutes with symptoms resolving but he did not
tell anybody about the symptoms until today. Patient states that at time of my exam he feels back to his baseline and otherwise well. He notes that he is taking his medications as prescribed, states he does have a known history of a familial
tremor for which he was on gabapentin for previously but does not believe he is taking this medication currently but is unsure why. He denies any chest pain, current shortness of breath, fevers, chills, cough, urinary symptoms, abdominal pain or
any other concerns. Patient states that he has his aortic valve replacement scheduled for January 19 at the [facility].
Past History
Past History
ED Past Medical History: CAD, CVA, GERD, HTN, Hypercholesterolemia, [place], Renal failure (Related to lithium overdose), Valvular disease (Severe aortic stenosis), Psychiatric and Other (Familial tremor)
ED Past Surgical History: Cardiac (PTCA with stent August 2024, repeat stent to first obtuse marginal December 02, 2024), Tonsilectomy and Other (Renal transplant)
Social History
Tobacco: Non-smoker
Alcohol: None
Drug: None
Personal:
Living: senior living
Employment: Retired
Family History
Family History: Other (Noncontributory)
Review of Systems
Review of Systems
All Other Systems: ROS reviewed and negative except as documented in HPI and ROS
Phy Exam
Physical Exam
Physical Exam:
GENERAL: Alert , in no apparent distress, pleasant, soft spoken
HEAD: Normocephalic atraumatic
EYE: clear conjunctiva
NECK: Supple
ENT: o/p clr, mmm.
CARDIAC: Regular rate and rhythm, systolic murmur at the right second intercostal space and left sternal border noted .
LUNGS: Clear breath sounds bilaterally, no acute respiratory distress, no wheezes/rales/rhonchi
ABDOMEN: Soft, without focal tenderness, no r/g, no cvat
NEUROLOGICAL: Alert and oriented, tremor at rest
SKIN: Warm and dry, skin intact.
MUSCULOSKELETAL: trace pitting ankle edema, well perfused.
PSYCH: Normal and appropriate interaction.
Scores
Heart Failure Risk
Heart Failure Risk Score: Not Applicable
Heart Score for Chest Pain Patients
STEMI patient?: Not applicable
Withdrawal Assessment of Alcohol
Withdrawal Assessment Completed?: Not applicable
Course
Orders/Labs/Results
Orders:
Orders
01/02/25 09:15
Electrocardiogram (*1) Urgent
Reason for Study: Fatigue / Weakness
01/02/25 09:16
EKG- Treatment ONCE
Urinalysis Reflex To Culture Urgent
Date Specimen was Collected: 01/02/25
Time Specimen was Collected: 09:16
01/02/25 09:20
Complete Blood Count/With Diff Urgent
Comprehensive Metabolic Panel Urgent
Magnesium Urgent
Troponin I Urgent
Abnormal Lab Results
01/02/25
09:20
RBC 4.24 L 10^6/uL
(4.70-6.10)
Hgb 11.8 L g/dL
(13.0-18.0)
Hct 36.4 L %
(39.0-52.0)
MCHC 32.4 L g/dL
(33.0-37.0)
Absolute Monos (auto) 1.1 H 10^3/uL
(0.1-0.6)
Lymphocytes % 18.1 L %
(20.5-51.1)
Monocytes % 15.6 H %
(1.7-9.3)
BUN 31 H mg/dl
(9-20)
Glucose 119 H mg/dl
(70-99)
Magnesium 1.3 L mg/dl
(1.6-2.3)
01/02/25 09:20
01/02/25 09:20
Vital Signs
Initial and Last Documented VS:
Initial Vital Signs
Pulse Resp Pulse Ox
65 15 100
01/02/25 09:17 01/02/25 09:17 01/02/25 09:17
Last Documented Vital Signs
Temp Pulse Resp BP Pulse Ox
98.6 F 61 18 131/58 99
01/02/25 12:00 01/02/25 12:00 01/02/25 12:00 01/02/25 12:00 01/02/25 12:00
MDM/Problems Addressed
Differential Diagnosis Includes:
Electrolyte abnormalities
ACS
Worsening valvular dysfunction
Orthostasis
Medication side effects
Renal dysfunction
UTI
MDM/Problems Addressed:
69-year-old male presenting to the ER for evaluation of some increased weakness and tremors per his living center however the patient stated to me that he told the staff that he felt lightheaded and diaphoretic yesterday. Patient with recent NSTEMI
back at the end of November, found to have severe aortic stenosis and is scheduled undergo a TAVR at the [facility] within the next 2 weeks. Currently hemodynamically stable and in no acute distress with the patient stating currently
he feels at his baseline. Will check labs, keep patient on telemetry to monitor, disposition pending.
Chronic conditions affecting care: CAD and Other (valvular dysfunction)
*Pulse Oximetry
SaO2: 100
Oxygen Mode of Delivery: Room air
Patient hypoxic: no
*EKG
Heart Rate: 65
Rate: normal
Rhythm: sinus
Ischemia: T-wave inversion (V4-V6)
*Lab Technician Interpretation
Rate: normal
Heart Rate: 68
Rhythm: sinus
*Critical Care Note
Total Time (30-74mins, 75-104mins- exclusive of procedures): Not Applicable
Data Reviewed
Review of Other/Old Records Reveals: Labs, Records and Discharge Summary
Patient Management
Discussion with other providers: retirement staff
Escalation/DeEscalation of care consider admission/obs:
Patient's workup is unremarkable for any acute pathologies. He is reportedly at his baseline and remains hemodynamically stable, no specific concerns at this time. I contacted patient's senior living staff and discussed workup with them here. At
this time patient is stable for discharge back to his senior living, has definitive treatment plan already in place for his severe aortic stenosis. Aware of return precautions to the ER.
ED Attending Note
-
Portions of this chart may have been created with voice recognition software.� Occasional wrong word or��sound alike� substitutions may have occurred due to the inherent limitations of voice recognition software.
Discharge Plan
Departure
Patient Disposition: Long Term/SNF
Date of Disposition: 01/02/25
Time of Disposition: 11:41
Discharge Problem:
Episodic lightheadedness, Essential tremor
Instructions: Generalized Weakness (DC)
Prescriptions:
No Action
acetaminophen [Tylenol] 325 mg Tablet
650 mg PO Q4HPRN PRN (Reason: MILD PAIN)
lamotrigine 200 mg Tablet
400 mg PO HS
clonazepam [Klonopin] 0.5 mg Tablet
0.5 mg PO HS
melatonin 3 mg Tablet
3 mg PO HS
aspirin 81 mg Tablet,Delayed Release (Dr/Ec)
81 mg PO DAILY
fludrocortisone 0.1 mg Tablet
0.1 mg PO DAILY
tacrolimus [Prograf] 0.5 mg Capsule
1.5 mg PO Q12H
mycophenolate sodium [Myfortic] 180 mg Tablet,Delayed Release (Dr/Ec)
540 mg PO BID
cinacalcet 90 mg Tablet
90 mg PO BID
pregabalin [Lyrica] 50 mg Capsule
50 mg PO QPM
cholecalciferol (vitamin D3) [Vitamin D3] 50 mcg (2,000 unit) Tablet
50 mcg PO DAILY
ticagrelor [Brilinta] 90 mg Tablet
90 mg PO BID
lurasidone [Latuda] 60 mg Tablet
60 mg PO DAILY
magnesium citrate [Citrate of Magnesia] Solution
150 ml PO DAILY Qty: 2960 0RF
pantoprazole 40 mg Tablet,Delayed Release (Dr/Ec)
40 mg PO DAILY Qty: 30 1RF
bisacodyl [Dulcolax (bisacodyl)] 10 mg Suppository
10 mg IA DAILYPRN PRN (Reason: if no bm on 4th day give on day 5)
Fleet Enema 19-7 gram/118 mL Enema
118 ml IA DAILYPRN PRN (Reason: if no bm by 5th day give on day 6)
atorvastatin 20 mg tablet
20 mg PO DAILY
metoprolol succinate 25 mg tablet extended release 24 hr
12.5 mg PO DAILY
furosemide [Lasix] 20 mg tablet
20 mg PO DAILY Qty: 30 2RF
Referrals:
UNKNOWN - PT DOES,NOT KNOW [Unknown Provider]
Interventions
Interventions:
*Risk Screen - Suicide Last Done: 01/02/25 09:22
*General Assessment Last Done: 01/02/25 09:22
*Neglect/Abuse Screening Last Done: 01/02/25 09:22
*ED- Fall Risk Assessment Last Done: 01/02/25 09:22
*ED COVID-19 Vaccine History Last Done: 01/02/25 09:22
ED- Cardiac Assessment Last Done: 01/02/25 09:22
ED- Neurological Assessment Last Done: 01/02/25 09:22
ED- Pulmonary Assessment Last Done: 01/02/25 09:22
Discharge Date and Time
Print Language: RWANDAN
[2025-01-02 11:23] VITALS: BP 122/56
[2025-01-02 12:00] VITALS: BP 131/58
--- NOTE | 2025-01-02 13:05 | EDRN ---
Acute Care Transport arrived and verbal report was given, this RN called the [facility] at [phone] and was transferred to the community health advocate and gave verbal report
== END 2025-01-02 13:59 ==
LOC: EMR 09:13
PROVIDERS: EMERGENCY PHYSICIAN Emergency Medicine; FAMILY PHYSICIAN Internal Medicine Geriatric Medicine
DX: R42 Dizziness and giddiness (principal); G25.0 Essential tremor; I25.2 Old myocardial infarction; I12.9 Hypertensive chronic kidney disease with stage 1 through stage 4 chronic kidney disease, or unspecified chronic kidney disease; N18.9 Chronic kidney disease, unspecified; E78.00 Pure hypercholesterolemia, unspecified; I25.10 Atherosclerotic heart disease of native coronary artery without angina pectoris; I35.0 Nonrheumatic aortic (valve) stenosis; Z86.73 Personal history of transient ischemic attack (TIA), and cerebral infarction without residual deficits; Z94.0 Kidney transplant status; Z95.2 Presence of prosthetic heart valve; Z95.5 Presence of coronary angioplasty implant and graft
CPT/HCPCS: 99283; 80053; 83735; 84484; 85025; 93005